=== PATIENT | female | born 1955 | race Caucasian/White ===

== ENCOUNTER 2016-05-16 06:12 | Day surgery (SDC) | payer MEDICARE ==
[2016-05-11 13:59] VITALS: BMI 22.4
[~2016-05-16 06:12] MED LIST: LACTATED RINGERS 1,000 ML IV SCH
[2016-05-16 06:34] VITALS: TEMP 97.6
--- NOTE | 2016-05-16 07:12 | XR ---
EXAMINATION TYPE: XR KUB DATE OF EXAM: 05/16/2016 7:03 AM CLINICAL DATA: 60-year-old female presents with kidney stones, prelithotripsy, H COMPARISON: 02/10/2016 FINDINGS: There is mild stool burden. Nonobstructive bowel gas pattern. A couple calcific densities project in the left mid abdomen measuring up to 1.3 and 0.8 cm. Multiple pelvic phlebolith. IMPRESSION: Left-sided nephrolithiasis measuring up to 1.3 cm. An adjacent 8 mm calculus may be new from 02/10/20 16.
[2016-05-16] MEDS ORDERED: PROPOFOL 10 MG/ML 20 ML VIAL IV ONE (07:40)
[2016-05-16] MEDS ORDERED: MIDAZOLAM 2 MG/2 ML VIAL ONE (07:40)
[2016-05-16] MEDS ORDERED: fentaNYL (PF) 50 MCG/ML 2 ML AMP ONE (07:40)
[2016-05-16 08:49] VITALS: BP 122/79; PULSE 74; RESP 18
--- NOTE | 2016-05-16 17:32 | OP ---
DATE OF SERVICE: 05/16/2016 SURGEON: LEONCIO BOLTON MD PREOPERATIVE DIAGNOSIS: Left renal calculi. POSTOPERATIVE DIAGNOSIS: Left renal calculi. OPERATION: Extracorporeal shockwave lithotripsy of left renal calculi. ANESTHESIA: Intravenous sedation. HISTORY: The patient is a 60-year-old female with a history of urolithiasis who was recently evaluated by Dr. Kaba and noted to have 2 calculi in the lower to mid pole of the left kidney. The largest calculus is triangular and measures 7 x 11 mm in size. The smaller calculus is 5 x 7 mm. Treatment options were reviewed with Dr. Kaba and the patient has chosen to proceed with ESWL. PROCEDURE: The patient was taken to the operating suite where adequate intravenous sedation was given. Patient was placed in the supine position on the fluoroscopy table. The calculi in the left kidney were localized using biplanar fluoroscopy. Lithotripsy was performed using the Dornier compact delta unit. Patient received 2500 shocks at level 5. A 2 minute pause occurred after 200 shocks. There appeared to be good fragmentation of the calculi. The patient tolerated the procedure well and left the operating room awake and in satisfactory condition. The patient will be seen back by Dr. Kaba in one week at which time a KUB will be obtained. PEDRO
== END 2016-05-16 09:37 | disposition home or self-care (01) ==
LOC: ORWHC2ENDO 06:12
PROVIDERS: ATTEND Urology
DX: N20.0 Calculus of kidney (principal); K21.9 Gastro-esophageal reflux disease without esophagitis; J45.909 Unspecified asthma, uncomplicated; J43.9 Emphysema, unspecified; Z72.0 Tobacco use; Z79.51 Long term (current) use of inhaled steroids; Z79.899 Other long term (current) drug therapy; Z88.0 Allergy status to penicillin; Z91.041 Radiographic dye allergy status; Z88.5 Allergy status to narcotic agent
CPT/HCPCS: 74000; 50590; J2250; J3010; J2704; 99153

== ENCOUNTER → 2016-06-16 | Outpatient (CLI) | payer MEDICARE ==
--- NOTE | 2016-06-16 14:48 | XR ---
EXAMINATION TYPE: XR abdomen 1V DATE OF EXAM: 06/16/2016 2:15 PM CLINICAL HISTORY: Lithotripsy May 16 with renal calculi progress study TECHNIQUE: Single supine KUB image of the abdomen is obtained. COMPARISON: Abdominal x-ray May 16, 2016 FINDINGS: Previously visualized irregular larger left-sided renal calculi are not clearly evident. Sc attered pelvic phleboliths are redemonstrated. No right-sided renal calculi are seen. Curvilinear den sity over left sacrum near the SI joint is stable and presumed vascular. Lung bases are clear. There is overall nonobstructive bowel gas pattern. Osseous structures are intac t. IMPRESSION: Findings are consistent with successful lithotripsy of larger irregular left-sided renal calculi.
== END ==
LOC: RADXRMAIN 13:59
PROVIDERS: ATTEND Urology
DX: N20.0 Calculus of kidney (principal)
CPT/HCPCS: 74000

== ENCOUNTER 2016-07-12 11:36 | Inpatient (IN) | payer MEDICARE ==
--- NOTE | 2016-07-12 14:32 | XR ---
EXAMINATION TYPE: XR chest 2V DATE OF EXAM: 07/12/2016 2:14 PM COMPARISON: NONE INDICATION: Cough TECHNIQUE: Single frontal view of the chest is obtained. FINDINGS: The heart size is normal. The pulmonary vasculature is normal. The lungs are clear. IMPRESSION: 1. No acute pulmonary process.
[2016-07-12] MEDS: methylPREDNISolone SOD SUCCI 125 MG/2 ML VIAL IV SCH ×2 (15:11→19:52)
[2016-07-12] MEDS: SODIUM CHLORIDE 0.9% 1,000 ML IV SCH (15:12)
[2016-07-12] MEDS: HEPARIN SODIUM,PORCINE 5,000 UNIT/ML 1 ML VIAL SQ SCH ×2 (15:12→20:06)
[2016-07-12] MEDS ORDERED: ALBUTEROL NEBULIZED 2.5 MG/3 ML INHALATION PRN (15:17)
[2016-07-12] MEDS ORDERED: FLUTICASONE 50MCG/SPRAY NASAL 16GM EA NOSTRIL PRN (15:17)
[2016-07-12] MEDS ORDERED: ALBUTEROL INHALER 60 PUFF/8 GM INHALER INHALATION PRN (15:17)
[2016-07-12] MEDS: HYDROcodone/APAP 5-325MG 1 EACH TAB PO PRN ×2 (15:42→22:02)
[2016-07-12 16:03] LABS: Basophils % (A) 0 %; CH 29.3; CHCM 32.4; Eosinophils % (A) 0 %; HCT 36.8 % (34.0-46.0); HDW 2.36; HGB 11.9 gm/dL (11.4-16.0); Luc # (Auto) 0.14; Luc % (Auto) 1; Lymphocytes # (A) 1.5 k/uL (1.0-4.8); Lymphocytes % (A) 12 %; MCH 29.3 pg (25.0-35.0); MCHC 32.2 g/dL (31.0-37.0); MCV 90.8 fL (80.0-100.0); Mean Platelet Volume 7.1; Monocytes # (A) 0.6 k/uL (0-1.0); Monocytes % (A) 6 %; Neutrophils # (A) 9.4 k/uL (1.3-7.7); Neutrophils % (A) 80 %; RBC 4.05 m/uL (3.80-5.40); RDW 13.9 % (11.5-15.5); WBC 11.7 k/uL (3.8-10.6); WBC (Perox) 12.19
[2016-07-12 16:11] LABS: ALT 29 U/L (9-52); AST 23 U/L (14-36); Alkaline Phosphatase 83 U/L (38-126); Anion Gap 9 mmol/L; Blood Urea Nitrogen 8 mg/dL (7-17); Calcium 9.2 mg/dL (8.4-10.2); Carbon Dioxide 32 mmol/L (22-30); Chloride 99 mmol/L (98-107); Glucose 97 mg/dL (74-99); Non-African American GFR(MDRD) >60 (>60 ml/min/1.73 sqM); Potassium 4.5 mmol/L (3.5-5.1); Sodium 140 mmol/L (137-145); Total Bilirubin 1.1 mg/dL (0.2-1.3); Total Protein 6.4 g/dL (6.3-8.2)
[2016-07-12] MEDS ORDERED: IPRATROPIUM-ALBUTEROL 3 ML NEB INHALATION PRN (18:42)
[2016-07-12] MEDS: SYMBICORT 160-4.5 MCG INHALER INHALATION SCH ×2 (19:07→20:17)
[2016-07-12] MEDS: IPRATROPIUM-ALBUTEROL 3 ML NEB INHALATION SCH ×2 (19:08→20:43)
[2016-07-12] MEDS ORDERED: SYMBICORT 80-4.5 MCG INHALER INHALATION SCH (20:00)
[2016-07-12] MEDS: FAMOTIDINE 20 MG TAB PO SCH (20:07)
[2016-07-12] MEDS: clonazePAM 1 MG TAB PO SCH (20:07)
[2016-07-12] MEDS: guaiFENesin 600 MG TABLET.ER PO SCH (20:07)
[2016-07-12] MEDS: ESCITALOPRAM 20 MG TAB PO SCH (20:07)
[2016-07-12] MEDS ORDERED: NON-FORMULARY DRUG (Ranitidine Hcl [Zantac] 150 MG) PO SCH (21:00)
[2016-07-13] MEDS: methylPREDNISolone SOD SUCCI 125 MG/2 ML VIAL IV SCH ×4 (00:10→18:00)
[2016-07-13] MEDS: IPRATROPIUM-ALBUTEROL 3 ML NEB INHALATION SCH (00:15)
[2016-07-13] MEDS: SODIUM CHLORIDE 0.9% 1,000 ML IV SCH ×2 (05:37→16:02)
[2016-07-13] MEDS: SYMBICORT 160-4.5 MCG INHALER INHALATION SCH ×3 (07:30→20:29)
[2016-07-13] MEDS: ALBUTEROL NEBULIZED 2.5 MG/3 ML INHALATION SCH ×6 (07:30→20:29)
[2016-07-13] MEDS: clonazePAM 1 MG TAB PO SCH ×2 (08:06→21:09)
[2016-07-13] MEDS: guaiFENesin 600 MG TABLET.ER PO SCH ×2 (08:11→21:09)
[2016-07-13] MEDS: ATENOLOL 25 MG TAB PO SCH (08:12)
[2016-07-13] MEDS: HYDROcodone/APAP 5-325MG 1 EACH TAB PO PRN (08:12)
[2016-07-13 08:31] LABS: Basophils % (A) 0 %; CH 28.9; CHCM 31.7; Eosinophils % (A) 0 %; HCT 37.2 % (34.0-46.0); HDW 2.33; Luc # (Auto) 0.04; Luc % (Auto) 0; Lymphocytes % (A) 6 %; MCH 29.5 pg (25.0-35.0); MCHC 32.2 g/dL (31.0-37.0); MCV 91.5 fL (80.0-100.0); Mean Platelet Volume 7.4; Monocytes # (A) 0.4 k/uL (0-1.0); Monocytes % (A) 3 %; Neutrophils # (A) 15.1 k/uL (1.3-7.7); Neutrophils % (A) 91 %; RBC 4.06 m/uL (3.80-5.40); RDW 13.6 % (11.5-15.5); WBC 16.6 k/uL (3.8-10.6); WBC (Perox) 17.31
[2016-07-13 08:38] LABS: ALT 20 U/L (9-52); AST 23 U/L (14-36); Alkaline Phosphatase 71 U/L (38-126); Anion Gap 11 mmol/L; Blood Urea Nitrogen 12 mg/dL (7-17); Calcium 9.4 mg/dL (8.4-10.2); Carbon Dioxide 26 mmol/L (22-30); Chloride 105 mmol/L (98-107); Glucose 145 mg/dL (74-99); Non-African American GFR(MDRD) >60 (>60 ml/min/1.73 sqM); Potassium 4.3 mmol/L (3.5-5.1); Sodium 142 mmol/L (137-145); Total Bilirubin 0.9 mg/dL (0.2-1.3); Total Protein 6.6 g/dL (6.3-8.2)
[2016-07-13] MEDS: HEPARIN SODIUM,PORCINE 5,000 UNIT/ML 1 ML VIAL SQ SCH ×2 (09:00→21:09)
--- NOTE | 2016-07-13 09:19 | P.CNPUL ---
History of Present Illness Consult date: 07/12/16 Requesting physician: Chirs Aguilar Reason for consult: COPD Chief complaint: Shortness of breath History of present illness: This patient was sent over from Dr. Aguilar's office for acute exacerbation of COPD. This patient has an extensive pulmonary history including bullous emphysema, COPD, and chronic persistent asthma. He also uses home oxygen at 2-1 /2 L nasal cannula around the clock. The patient also has had a thoracotomy to remove benign mass near his right long in the past. She has a nicotine dependent and is still currently smoking. The patient denies any recent fever, chills, sweats, nausea, vomiting, diarrhea or constipation. Upon examination the patient is resting up in bed on 3 L of home oxygen she is short of breath with exertion or extensive conversation. She continues to have her chronic cough which is congested however she is unable to bring up sputum at this time due to how thick it is. Review of Systems 14 point review of systems was completed and is negative other than what is noted in the HPI. Past Medical History Past Medical History: Asthma, COPD, GERD/Reflux, Hypertension, Osteoarthritis ( OA), Renal Disease, Respiratory Disorder Additional Past Medical History / Comment(s): BULLOUS EMPHYSEMA, end stage COPD uses O2 at 2.5L/NC ATC, arthritis-multiple joints, nephrolithiasis-has passed stones on her own and also removed surgically. History of Any Multi-Drug Resistant Organisms: None Reported Past Surgical History: Adenoidectomy, Tonsillectomy, Tubal Ligation Additional Past Surgical History / Comment(s): THORACOTMY TO REMOVE BENIGN MASS NEAR RT LUNG, ESWLs, EGD/colonoscopy, laparoscopic surgery for bladder polyps and female problems. Past Anesthesia/Blood Transfusion Reactions: No Reported Reaction Additional Past Anesthesia/Blood Transfusion Reaction / Comment(s): The patients son carries the gene for malignant hyperthermia but has not had a reaction to anethesia. Pt has not had herself tested. Past Psychological History: Anxiety, Depression, Panic Disorder Additional Psychological History / Comment(s): Pt resides with her friend. She has home oxygen and a nebulizer. She uses a walker or cane to ambulate. She no longer drives, her friend takes her to [facility]. Smoking Status: Current every day smoker Past Alcohol Use History: None Reported Additional Past Alcohol Use History / Comment(s): Pt started smoking in 1974. She is down to 6 cigarettes a day. Past Drug Use History: Marijuana Additional Drug Use History / Comment(s): Pt used marijuana about a year ago, once. - Past Family History Son(s) Additional Family Medical History / Comment(s): carries the gene for malignant hyperthermia. He had had anethesia without and reaction Father Family Medical History: Coronary Artery Disease (CAD), Myocardial Infarction (IN ), Renal Disease Additional Family Medical History / Comment(s): Father of a IN at the age of 59yrs. Mother Family Medical History: Cancer Additional Family Medical History / Comment(s): Mother of leukemia at the age of 57yrs. Brother(s) Family Medical History: Cancer Additional Family Medical History / Comment(s): Brother of bladder cancer at the age of 50yrs. Medications and Allergies Home Medications Medication Instructions Recorded Confirmed Type Albuterol Sulfate [Proair Hfa] 1 applic INHALATION RT-Q6H PRN 09/13/13 07/12/16 History Escitalopram [Lexapro] 20 mg PO HS 09/13/13 07/12/16 History Fluticasone Propionate [Flonase] 1 spray EA NOSTRIL DAILY PRN 09/13/13 07/12/16 History Fluticasone/Salmeterol [Advair 1 applic INHALATION RT-BID 09/13/13 07/12/16 History 250-50 Diskus] clonazePAM [KlonoPIN] 1 mg PO BID 09/13/13 07/12/16 History Ranitidine HCl [Zantac] 150 mg PO HS 04/21/15 07/12/16 History Cetirizine HCl [Zyrtec] 10 mg PO DAILY 05/11/16 07/12/16 History Albuterol Nebulized [Ventolin 2.5 mg INHALATION RT-Q6H PRN 07/12/16 07/12/16 History Nebulized] Atenolol [Tenormin] 25 mg PO DAILY 07/12/16 07/12/16 History Allergies Allergy/AdvReac Type Severity Reaction Status Date / Time codeine Allergy Anaphylaxis Verified 05/16/16 06:34 Iodinated Contrast Media - Allergy Anaphylaxis Verified 05/16/16 06:34 Oral and [Iodinated Contrast Media - IV Dye] morphine Allergy Hallucinati Verified 05/16/16 06:34 ons Penicillins Allergy Anaphylaxis Verified 05/16/16 06:34 MOLD Allergy Anaphylaxis Uncoded 05/16/16 06:34 Physical Exam Vitals: Vital Signs Temp Pulse Pulse Resp BP Pulse Ox 07/13/16 08:00 18 07/13/16 07:45 80 07/13/16 07:30 84 07/13/16 07:00 98.2 F 98 18 140/80 93 L 07/13/16 00:00 86 16 07/12/16 23:00 98 F 86 16 105/53 94 L 07/12/16 20:29 80 07/12/16 20:19 72 07/12/16 16:00 18 07/12/16 14:22 92 L 07/12/16 14:15 98.1 F 93 18 95/57 87 L 07/12/16 12:14 92 L 07/12/16 12:10 98.1 F 93 20 95/57 87 L Intake and Output 07/12/16 07/13/16 07/13/16 22:59 06:59 14:59 Intake Total 300 240 Balance 300 240 Intake: Intake, IV Titration 300 Amount Sodium Chloride 0.9% 1, 300 000 ml @ 75 mls/hr IV . [id number] [facility] Rx#:[id number] Oral 240 Other: Voiding Method Bedside Commode # Voids 1 # Bowel Movements 1 Weight 53.1 kg GENERAL EXAM: Alert, active, comfortable in no apparent distress. HEAD: Normocephalic. EYES: Normal reaction of pupils, equal size. NOSE: Clear with pink turbinates. THROAT: No erythema or exudates. NECK: No masses, no JVD. CHEST: No chest wall deformity. LUNGS: Bilaterally poor air entry, lung sounds noted to be coarse, scattered rhonchi and wheezing also noted. CVS: S1 and S2 normal with no audible mumurs, regular rhythm. ABDOMEN: No hepatosplenomegaly, normal bowel sounds, no guarding or rigidity. EXTREMITIES: No edema noted, pedal pulses palpable. SKIN: No rashes CENTRAL NERVOUS SYSTEM: No focal deficits, tone is normal in all 4 extremities. Results - Laboratory Findings CBC and BMP: 07/13/16 07:47 07/13/16 07:47 Abnormal lab findings: Abnormal Labs 07/12/16 07/12/16 07/13/16 15:11 15:11 07:47 WBC 11.7 H 16.6 H Neutrophils # 9.4 H 15.1 H Carbon Dioxide 32 H Creatinine 0.50 L Glucose 07/13/16 07:47 WBC Neutrophils # Carbon Dioxide Creatinine 0.49 L Glucose 145 H - Diagnostic Findings Chest x-ray: report reviewed Assessment and Plan Plan: Assessment Acute exacerbation of chronic obstructive pulmonary disease Tracheobronchitis Bullous emphysema Acute exacerbation of Chronic persistent asthma Acute on chronic hypoxic respiratory failure Plan Medications have been reviewed and will be continued. We will add albuterol updrafts. Continue with IV steroids and her Symbicort inhaler. We will also add Mucinex to help with secretions. We will also obtain a flu swab and a sputum culture. Incentive spirometer initiated and encouraged. Continue with supplemental oxygen, pulmonary hygiene and supportive care. We will continue to monitor labs/results and adjust treatment as necessary. I performed an examination of the patient and discussed their management with the nurse practitioner. I have reviewed the nurse practitioner's note and agree with the documented findings and plan of care.
[2016-07-13] MEDS: LORATADINE 10 MG TAB PO SCH (11:54)
[2016-07-13] MEDS: LEVOFLOXACIN 500MG-D5W PMX 500 MG in DEXTROSE/WATER 1 100ML.BAG IVPB SCH (11:56)
--- NOTE | 2016-07-13 13:27 | P.PN ---
Subjective 61-year-old female being seen with the attending on rounds. Patient sitting up. Patient states she continues to feel short of breath is audibly congested. Patient's initial presentation from Dr. Aguilar's office for shortness of breath likely due to an acute exacerbation of COPD. Patient has an extensive pulmonary history including bullous emphysema with chronic persistent asthma. Patient uses home O2 to have liters [id number] at home. Patient has a history of having a thoracotomy done to remove a benign mass near the right lung base in the past. Patient is a current smoker has a history of nicotine dependency greater than 30 year history. Patient states at home she was not able to cough up any secretions influenza A and B- chest x-ray on admission no acute pulmonary process Objective - Vital Signs Vital signs: Vital Signs Temp 98.2 F 07/13/16 07:00 Pulse 88 07/13/16 11:36 Resp 18 07/13/16 08:00 BP 140/80 07/13/16 07:00 Pulse Ox 93 L 07/13/16 07:00 Intake & Output 07/12/16 07/13/16 07/13/16 18:59 06:59 18:59 Intake Total 540 Balance 540 Weight 53.1 kg Intake: Intake, IV Titration 300 Amount Sodium Chloride 0.9% 1, 300 000 ml @ 75 mls/hr IV . [id number] [facility] Rx#:[id number] Oral 240 Other: Voiding Method Bedside Commode # Voids 1 1 # Bowel Movements 1 - Exam Physical exam 61-year-old female sitting up in bed continues to feel short of breath audibly congested Lungs diminished at the bases with bilateral prolonged expiratory wheezing noted Heart S1-S2 audible and regular Abdomen soft nontender reports no nausea vomiting Extremities no edema noted - Labs CBC & Chem 7: 07/13/16 07:47 07/13/16 07:47 Labs: Abnormal Lab Results - Last 24 Hours (Table) 07/12/16 07/12/16 07/13/16 Range/Units 15:11 15:11 07:47 WBC 11.7 H 16.6 H (3.8-10.6) k/uL Neutrophils # 9.4 H 15.1 H (1.3-7.7) k/uL Carbon Dioxide 32 H (22-30) mmol/L Creatinine 0.50 L (0.52-1.04) mg/dL Glucose (74-99) mg/dL 07/13/16 Range/Units 07:47 WBC (3.8-10.6) k/uL Neutrophils # (1.3-7.7) k/uL Carbon Dioxide (22-30) mmol/L Creatinine 0.49 L (0.52-1.04) mg/dL Glucose 145 H (74-99) mg/dL Assessment and Plan Plan: Impression Present on admission shortness of breath exertional dyspnea suspect due to an acute exacerbation of COPD Chronic current nicotine dependency current smoker greater than a 40 year history Extensive pulmonary history Bullous emphysema Chronic persistent asthma Chronic hypoxic respiratory failure supplemental oxygen 2-1/2 L around-the- clock at home History of a thoracotomy to remove a benign mass near the right lung base Acute on chronic hypoxic respiratory failure Acute exacerbation of chronic persistent asthma Tracheal bronchitis Plan Continue recommendations by pulmonology service Follow up on the sputum culture pending DVT and GI prophylaxis Aerosol bronchodilators as ordered Resume home meds as appropriate Further recommendations pending will follow The above dictated assessment and findings were discussed with Dr. Aguilar Impression and the plan of care have been dictated as directed. Lynne Murcia nurse practitioner acting as a scribe for Dr. Aguilar
--- NOTE | 2016-07-13 14:39 | P.PN ---
Subjective This patient was sent over from Dr. Aguilar's office for acute exacerbation of COPD. This patient has an extensive pulmonary history including bullous emphysema, COPD, and chronic persistent asthma. He also uses home oxygen at 2-1 /2 L nasal cannula around the clock. The patient also has had a thoracotomy to remove benign mass near her right long in the past. She has a nicotine dependent and is still currently smoking, greater than 30 year history.. The patient denies any recent fever, chills, sweats, nausea, vomiting, diarrhea or constipation. influenza A and B were negative chest x-ray shows no acute pulmonary process. Upon examination the patient is resting up in bed on 3 L of oxygen she is short of breath with exertion or extensive conversation. She continues to have her chronic cough which is congested however she is unable to bring up sputum at this time due to how thick it is. Objective - Vital Signs Vital signs: Vital Signs Temp 98.2 F 07/13/16 07:00 Pulse 88 07/13/16 11:36 Resp 18 07/13/16 08:00 BP 140/80 07/13/16 07:00 Pulse Ox 93 L 07/13/16 07:00 Intake & Output 07/12/16 07/13/16 07/13/16 18:59 06:59 18:59 Intake Total 540 Balance 540 Weight 53.1 kg Intake: Intake, IV Titration 300 Amount Sodium Chloride 0.9% 1, 300 000 ml @ 75 mls/hr IV . [id number] [facility] Rx#:[id number] Oral 240 Other: Voiding Method Bedside Commode # Voids 1 1 # Bowel Movements 1 - Exam GENERAL EXAM: Alert, active, comfortable in no apparent distress. HEAD: Normocephalic. EYES: Normal reaction of pupils, equal size. NOSE: Clear with pink turbinates. THROAT: No erythema or exudates. NECK: No masses, no JVD. CHEST: No chest wall deformity. LUNGS: Equal air entry, prolonged expiratory wheeze, diminished bases. CVS: S1 and S2 normal with no audible mumurs, regular rhythm. ABDOMEN: No hepatosplenomegaly, normal bowel sounds, no guarding or rigidity. EXTREMITIES: No edema noted, pedal pulses palpable. SKIN: No rashes CENTRAL NERVOUS SYSTEM: No focal deficits, tone is normal in all 4 extremities. - Labs CBC & Chem 7: 07/13/16 07:47 07/13/16 07:47 Labs: Abnormal Lab Results - Last 24 Hours (Table) 07/12/16 07/12/16 07/13/16 Range/Units 15:11 15:11 07:47 WBC 11.7 H 16.6 H (3.8-10.6) k/uL Neutrophils # 9.4 H 15.1 H (1.3-7.7) k/uL Carbon Dioxide 32 H (22-30) mmol/L Creatinine 0.50 L (0.52-1.04) mg/dL Glucose (74-99) mg/dL 07/13/16 Range/Units 07:47 WBC (3.8-10.6) k/uL Neutrophils # (1.3-7.7) k/uL Carbon Dioxide (22-30) mmol/L Creatinine 0.49 L (0.52-1.04) mg/dL Glucose 145 H (74-99) mg/dL Assessment and Plan Plan: Assessment Acute exacerbation of chronic obstructive pulmonary disease Tracheobronchitis Bullous emphysema Acute exacerbation of Chronic persistent asthma Acute on chronic hypoxic respiratory failure Plan Medications have been reviewed and will be continued. Continue with nebulizer treatments and IV steroids, also Mucinex to help with secretions. Sputum cultures pending. Incentive spirometer initiated and encouraged. Continue with supplemental oxygen, pulmonary hygiene and supportive care. We will continue to monitor labs/results and adjust treatment as necessary. I performed an examination of the patient and discussed their management with the nurse practitioner. I have reviewed the nurse practitioner's note and agree with the documented findings and plan of care.
[2016-07-13] MEDS ORDERED: HYDROcodone/APAP 5-325MG 1 EACH TAB PO PRN (14:40)
[2016-07-13 15:31] VITALS: BMI 21.4
[2016-07-13] MEDS: HYDROcodone/APAP 7.5-325MG 1 EACH TAB PO PRN (15:57)
[2016-07-13] MEDS: KETOROLAC 30 MG/ML 1 ML VIAL IVP SCH ×2 (16:01→19:24)
[2016-07-13] MEDS: ESCITALOPRAM 20 MG TAB PO SCH (21:09)
[2016-07-13] MEDS: FAMOTIDINE 20 MG TAB PO SCH (21:09)
[2016-07-14] MEDS: methylPREDNISolone SOD SUCCI 125 MG/2 ML VIAL IV SCH ×3 (00:01→12:21)
[2016-07-14] MEDS: HYDROcodone/APAP 7.5-325MG 1 EACH TAB PO PRN ×3 (00:58→19:46)
[2016-07-14] MEDS: KETOROLAC 30 MG/ML 1 ML VIAL IVP SCH ×3 (01:25→12:27)
[2016-07-14] MEDS: SODIUM CHLORIDE 0.9% 1,000 ML IV SCH (06:14)
[2016-07-14] MEDS: SYMBICORT 160-4.5 MCG INHALER INHALATION SCH ×2 (07:38→20:41)
[2016-07-14] MEDS: ALBUTEROL NEBULIZED 2.5 MG/3 ML INHALATION SCH ×4 (07:38→20:45)
[2016-07-14] MEDS: LEVOFLOXACIN 500MG-D5W PMX 500 MG in DEXTROSE/WATER 1 100ML.BAG IVPB SCH (09:50)
[2016-07-14] MEDS: HEPARIN SODIUM,PORCINE 5,000 UNIT/ML 1 ML VIAL SQ SCH ×2 (09:50→19:51)
[2016-07-14] MEDS: clonazePAM 1 MG TAB PO SCH ×2 (09:51→23:04)
[2016-07-14] MEDS: LORATADINE 10 MG TAB PO SCH (09:51)
[2016-07-14] MEDS: ATENOLOL 25 MG TAB PO SCH (09:51)
[2016-07-14] MEDS: guaiFENesin 600 MG TABLET.ER PO SCH ×2 (09:51→19:48)
--- NOTE | 2016-07-14 14:15 | P.PN ---
Subjective 61-year-old female being seen on rounds. Sitting up on the edge of the bed patient states breathing feels notably improved. Patients being followed by pulmonology service. Recommendations noted appreciated and reviewed Patient states less pleuritic chest pain coughing less anxious to be discharged Objective - Vital Signs Vital signs: Vital Signs Temp 97.9 F 07/14/16 07:00 Pulse 88 07/14/16 07:00 Resp 20 07/14/16 07:00 BP 160/74 07/14/16 07:00 Pulse Ox 95 07/14/16 07:00 Intake & Output 07/13/16 07/14/16 07/14/16 18:59 06:59 18:59 Intake Total 300 540 Balance 300 540 Weight 53.1 kg Intake: Oral 300 540 Other: Voiding Method Bedside Commode Bedside Commode Bedside Commode # Voids 4 2 - Exam Physical exam 61-year-old female sitting up in bed feels less short of breath Lungs diminished at the bases with bilateral prolonged expiratory wheezing noted no cough noted sats on 2 L 95% Heart S1-S2 audible and regular denying chest pain Abdomen soft nontender reports no nausea vomiting Extremities no edema noted - Labs CBC & Chem 7: 07/13/16 07:47 07/13/16 07:47 Assessment and Plan Plan: Impression Present on admission shortness of breath exertional dyspnea suspect due to an acute exacerbation of COPD Chronic current nicotine dependency current smoker greater than a 40 year history Extensive pulmonary history Bullous emphysema Chronic persistent asthma Chronic hypoxic respiratory failure supplemental oxygen 2-1/2 L around-the- clock at home History of a thoracotomy to remove a benign mass near the right lung base Acute on chronic hypoxic respiratory failure Acute exacerbation of chronic persistent asthma Tracheal bronchitis Plan Continue recommendations by pulmonology service Follow up on the sputum culture pending DVT and GI prophylaxis Aerosol bronchodilators as ordered Resume home meds as appropriate audible discharge in the next 24 hours The above dictated assessment and findings were discussed with Dr. Aguilar Impression and the plan of care have been dictated as directed. Lynne Murcia nurse practitioner acting as a scribe for Dr. Aguilar
--- NOTE | 2016-07-14 17:46 | P.PN ---
Subjective This patient was sent over from Dr. Aguilar's office for acute exacerbation of COPD. This patient has an extensive pulmonary history including bullous emphysema, COPD, and chronic persistent asthma. He also uses home oxygen at 2-1 /2 L nasal cannula around the clock. The patient also has had a thoracotomy to remove benign mass near her right long in the past. She has a nicotine dependent and is still currently smoking, greater than 30 year history.. The patient denies any recent fever, chills, sweats, nausea, vomiting, diarrhea or constipation. influenza A and B were negative chest x-ray shows no acute pulmonary process. Upon examination the patient is resting up in bed on 2.5 L of oxygen she is short of breath with exertion or extensive conversation. She continues to have her chronic cough which is congested, however this as improved. Patient could go home in the near future. Objective - Vital Signs Vital signs: Vital Signs Temp 98.2 F 07/14/16 15:00 Pulse 72 07/14/16 15:00 Resp 20 07/14/16 15:00 BP 139/71 07/14/16 15:00 Pulse Ox 96 07/14/16 15:00 Intake & Output 07/13/16 07/14/16 07/14/16 18:59 06:59 18:59 Intake Total 300 540 600 Balance 300 540 600 Weight 53.1 kg Intake: Oral 300 540 600 Other: Voiding Method Bedside Commode Bedside Commode Bedside Commode # Voids 4 2 3 - Exam GENERAL EXAM: Alert, active, comfortable in no apparent distress. HEAD: Normocephalic. EYES: Normal reaction of pupils, equal size. NOSE: Clear with pink turbinates. THROAT: No erythema or exudates. NECK: No masses, no JVD. CHEST: No chest wall deformity. LUNGS: Equal air entry, prolonged expiratory wheeze, diminished bases. CVS: S1 and S2 normal with no audible mumurs, regular rhythm. ABDOMEN: No hepatosplenomegaly, normal bowel sounds, no guarding or rigidity. EXTREMITIES: No edema noted, pedal pulses palpable. SKIN: No rashes CENTRAL NERVOUS SYSTEM: No focal deficits, tone is normal in all 4 extremities. - Labs CBC & Chem 7: 07/13/16 07:47 07/13/16 07:47 Assessment and Plan Plan: Assessment Acute exacerbation of chronic obstructive pulmonary disease Tracheobronchitis Bullous emphysema Acute exacerbation of Chronic persistent asthma Acute on chronic hypoxic respiratory failure Plan Patient could be cleared for discharge from a pulmonary stand point tomorrow. Medications have been reviewed and will be continued. Continue with nebulizer treatments and IV steroids, also Mucinex to help with secretions. Influenza negative. Sputum cultures pending. Incentive spirometer initiated and encouraged. We may switch Levaquin to oral tomorrow. Agree with decreasing steroids. Continue with supplemental oxygen, pulmonary hygiene and supportive care. We will continue to monitor labs/results and adjust treatment as necessary. I performed an examination of the patient and discussed their management with the nurse practitioner. I have reviewed the nurse practitioner's note and agree with the documented findings and plan of care.
[2016-07-14] MEDS: methylPREDNISolone SOD SUCCI 40 MG/ML 1 ML VIAL IV SCH ×2 (18:29→23:08)
[2016-07-14] MEDS: FAMOTIDINE 20 MG TAB PO SCH (23:04)
[2016-07-14] MEDS: ESCITALOPRAM 20 MG TAB PO SCH (23:04)
[2016-07-15] MEDS: SODIUM CHLORIDE 0.9% 1,000 ML IV SCH ×2 (04:28→17:25)
[2016-07-15] MEDS: methylPREDNISolone SOD SUCCI 40 MG/ML 1 ML VIAL IV SCH ×3 (06:23→23:22)
[2016-07-15] MEDS: HYDROcodone/APAP 7.5-325MG 1 EACH TAB PO PRN ×3 (06:26→22:01)
[2016-07-15] MEDS: ATENOLOL 25 MG TAB PO SCH (08:38)
[2016-07-15] MEDS: LEVOFLOXACIN 500 MG TAB PO SCH (08:38)
[2016-07-15] MEDS: guaiFENesin 600 MG TABLET.ER PO SCH ×2 (08:38→21:57)
[2016-07-15] MEDS: LORATADINE 10 MG TAB PO SCH (08:39)
[2016-07-15] MEDS: clonazePAM 1 MG TAB PO SCH ×2 (08:40→21:59)
[2016-07-15] MEDS: SYMBICORT 160-4.5 MCG INHALER INHALATION SCH ×2 (08:41→20:41)
[2016-07-15] MEDS: ALBUTEROL NEBULIZED 2.5 MG/3 ML INHALATION SCH ×4 (08:42→20:41)
[2016-07-15] MEDS: HEPARIN SODIUM,PORCINE 5,000 UNIT/ML 1 ML VIAL SQ SCH ×2 (09:00→21:57)
--- NOTE | 2016-07-15 09:30 | P.PN ---
Subjective 61-year-old female sitting up in bed. Patient states breathing feels "no better than when I came in". Patient has a extensive pulmonary history has emphysema seizure fierce COPD with chronic persistent asthma. Patient uses to help liters [id number] at home.no cough noted.sats are 95% on room air. No cough noted. Objective - Vital Signs Vital signs: Vital Signs Temp 97.9 F 07/15/16 07:00 Pulse 76 07/15/16 07:00 Resp 18 07/15/16 08:00 BP 124/79 07/15/16 07:00 Pulse Ox 97 07/15/16 07:00 Intake & Output 07/14/16 07/15/16 07/15/16 18:59 06:59 18:59 Intake Total 600 500 Balance 600 500 Intake: Intake, IV Titration 500 Amount Sodium Chloride 0.9% 1, 500 000 ml @ 50 mls/hr IV . Q20H [facility] Rx#:[id number] Oral 600 Other: Voiding Method Bedside Commode Bedside Commode # Voids 3 2 - Exam Physical exam 61-year-old female sitting up in bed feels short of breath Lungs diminished at the bases with bilateral prolonged expiratory wheezing noted no cough noted sats on 2 L 95% Heart S1-S2 audible and regular denying chest pain Abdomen soft nontender reports no nausea vomiting Extremities no edema noted - Labs CBC & Chem 7: 07/13/16 07:47 07/13/16 07:47 Labs: Microbiology - Last 24 Hours (Table) 07/13/16 21:10 Gram Stain - Preliminary Sputum Assessment and Plan Plan: Impression Present on admission shortness of breath exertional dyspnea suspect due to an acute exacerbation of COPD Chronic current nicotine dependency current smoker greater than a 40 year history Extensive pulmonary history Bullous emphysema Chronic persistent asthma Chronic hypoxic respiratory failure supplemental oxygen 2-1/2 L around-the- clock at home History of a thoracotomy to remove a benign mass near the right lung base Acute on chronic hypoxic respiratory failure Acute exacerbation of chronic persistent asthma Tracheal bronchitis Plan Continue recommendations by pulmonology service Follow up on the sputum culture pending DVT and GI prophylaxis Aerosol bronchodilators as ordered Resume home meds as appropriate possible discharge in the next 24 Steroids per pulmonary service The above dictated assessment and findings were discussed with Dr. Aguilar Impression and the plan of care have been dictated as directed. Lynne Murcia nurse practitioner acting as a scribe for Dr. Aguilar
--- NOTE | 2016-07-15 13:02 | P.PN ---
Subjective This patient was sent over from Dr. Aguilar's office for acute exacerbation of COPD. This patient has an extensive pulmonary history including bullous emphysema, COPD, and chronic persistent asthma. He also uses home oxygen at 2-1 /2 L nasal cannula around the clock. The patient also has had a thoracotomy to remove benign mass near her right long in the past. She has a nicotine dependent and is still currently smoking, greater than 30 year history.. The patient denies any recent fever, chills, sweats, nausea, vomiting, diarrhea or constipation. influenza A and B were negative chest x-ray shows no acute pulmonary process. Upon examination the patient is resting up in bed on 2.5 L of oxygen she is short of breath with exertion or extensive conversation. She continues to have her chronic cough which is congested, however this as improved. Patient could go home in the near future. Objective - Vital Signs Vital signs: Vital Signs Temp 97.9 F 07/15/16 07:00 Pulse 76 07/15/16 07:00 Resp 18 07/15/16 08:00 BP 124/79 07/15/16 07:00 Pulse Ox 97 07/15/16 07:00 Intake & Output 07/14/16 07/15/16 07/15/16 18:59 06:59 18:59 Intake Total 600 500 Balance 600 500 Intake: Intake, IV Titration 500 Amount Sodium Chloride 0.9% 1, 500 000 ml @ 50 mls/hr IV . Q20H ZAYDA Rx#:[id number] Oral 600 Other: Voiding Method Bedside Commode Bedside Commode # Voids 3 2 - Exam GENERAL EXAM: Alert, active, comfortable in no apparent distress. HEAD: Normocephalic. EYES: Normal reaction of pupils, equal size. NOSE: Clear with pink turbinates. THROAT: No erythema or exudates. NECK: No masses, no JVD. CHEST: No chest wall deformity. LUNGS: Equal air entry, prolonged expiratory wheeze, diminished bases. CVS: S1 and S2 normal with no audible mumurs, regular rhythm. ABDOMEN: No hepatosplenomegaly, normal bowel sounds, no guarding or rigidity. EXTREMITIES: No edema noted, pedal pulses palpable. SKIN: No rashes CENTRAL NERVOUS SYSTEM: No focal deficits, tone is normal in all 4 extremities. - Labs CBC & Chem 7: 07/13/16 07:47 07/13/16 07:47 Labs: Microbiology - Last 24 Hours (Table) 07/13/16 21:10 Gram Stain - Preliminary Sputum Assessment and Plan Plan: Assessment Acute exacerbation of chronic obstructive pulmonary disease Tracheobronchitis Bullous emphysema Acute exacerbation of Chronic persistent asthma Acute on chronic hypoxic respiratory failure Plan Patient could be cleared for discharge from a pulmonary stand point tomorrow, we 'll follow-up with patient in the outpatient setting.. Medications have been reviewed and will be continued. Continue with nebulizer treatments and IV steroids, also Mucinex to help with secretions. Influenza negative. Sputum cultures pending. Incentive spirometer initiated and encouraged. We may switch Levaquin to oral tomorrow. Agree with decreasing steroids. Continue with supplemental oxygen, pulmonary hygiene and supportive care. We will continue to monitor labs/results and adjust treatment as necessary. I performed an examination of the patient and discussed their management with the nurse practitioner. I have reviewed the nurse practitioner's note and agree with the documented findings and plan of care.
[2016-07-15] MEDS: FAMOTIDINE 20 MG TAB PO SCH (21:56)
[2016-07-15] MEDS: ESCITALOPRAM 20 MG TAB PO SCH (21:57)
[2016-07-16] MEDS: methylPREDNISolone SOD SUCCI 40 MG/ML 1 ML VIAL IV SCH ×2 (08:03→15:56)
[2016-07-16] MEDS: HEPARIN SODIUM,PORCINE 5,000 UNIT/ML 1 ML VIAL SQ SCH ×2 (08:03→21:29)
[2016-07-16] MEDS: guaiFENesin 600 MG TABLET.ER PO SCH ×2 (08:03→21:28)
[2016-07-16] MEDS: clonazePAM 1 MG TAB PO SCH ×2 (08:03→21:28)
[2016-07-16] MEDS: LORATADINE 10 MG TAB PO SCH (08:05)
[2016-07-16] MEDS: LEVOFLOXACIN 500 MG TAB PO SCH (08:05)
[2016-07-16] MEDS: ATENOLOL 25 MG TAB PO SCH (08:06)
[2016-07-16] MEDS: HYDROcodone/APAP 7.5-325MG 1 EACH TAB PO PRN ×2 (08:14→15:54)
[2016-07-16] MEDS: IPRATROPIUM 0.5 MG/2.5 ML NEBU INHALATION SCH ×4 (09:41→19:59)
[2016-07-16] MEDS: LEVALBUTEROL NEB (CONC) 1.25 MG/0.5 ML AMP INHALATION SCH ×4 (09:41→19:59)
[2016-07-16] MEDS: BUDESONIDE 0.5 MG/2 ML NEBU INHALATION SCH ×2 (09:42→19:57)
[2016-07-16] MEDS: ALBUTEROL NEBULIZED 2.5 MG/3 ML INHALATION SCH (11:22)
[2016-07-16] MEDS: SYMBICORT 160-4.5 MCG INHALER INHALATION SCH (11:22)
--- NOTE | 2016-07-16 12:27 | PN ---
DATE OF SERVICE: 07/16/2016 Ms. Eubanks is seen, evaluated and examined on the fourth floor. She is more short of breath than baseline having cough, congestion as well. Feels like she is swelling up. Of note that she has been refusing her nebulizer treatment, though. Her blood pressure is 145/99, respiratory rate 18, pulse 86, temperature 98, saturation 95% on 2 L oxygen. HEENT EXAMINATION: Otherwise atraumatic, normocephalic. Pharynx is clear. Narrow pharyngeal opening is present. Neck veins are prominent, but no JVD is present. HEART: Regular rate and rhythm, S1 and S2 audible. LUNGS: Bilateral coarse breath sound, inspiratory, expiratory wheezing and rhonchi are present. A few crackles at bases are noted as well. Abdomen is soft. No rebound or rigidity. EXTREMITIES: +1 peripheral pulses. NEUROLOGICAL EXAMINATION: Otherwise, awake and alert. Sputum obtained on 07/13 revealed mixed bacteria, no bacterial predominance is seen. Some Gram-positive bacilli and gram-negative with ( ) is seen though. The laboratory data reviewed. White cell count was up to 16,600, hemoglobin and hematocrit is 12 and 37, platelet count of 214,000. Chemistry otherwise within normal limits with normal BUN and creatinine. Influenza A and B both were negative. Current medications reviewed and include Tylenol with codeine 4 times a day, albuterol updraft as needed and q.i.d., atenolol is 25 mg daily, Pulmicort 2 times a day, Symbicort as needed. Also on escitalopram, fluticasone, Pepcid, guaifenesin, subQ heparin, Levaquin, loratadine, Solu-Medrol 60 q.8 hourly, IV fluid, normal saline. IMPRESSION: 1. Acute chronic obstructive pulmonary disease exacerbation and purulent tracheobronchitis with worsening. Patient has been on adequate therapy, IV steroids, antibiotics and breathing treatments; however, patient has been refusing ( ). Will change it to Xopenex and ipratropium and add Pulmicort as well. Will obtain a followup chest x-ray. 2. Other issues include hypertension, hypertensive cardiovascular disease. 3. Chronic pain syndrome, mood disorder, depression. 4. Leukocytosis, could be related to multifactorial process. Will monitor and observe. Will obtain a followup chest x-ray. Further recommendations pending. Follow up on culture results and reports as well.
--- NOTE | 2016-07-16 16:06 | PN ---
SUBJECTIVE: 61-year-old white female who was admitted with acute chronic obstructive pulmonary disease exacerbation, tracheobronchitis, state she has limited breathing, unable to get a good breath. Temperature 98.1, pulse is 88 and 90, respiratory rate 16 to 18, blood pressure is 145/99, 96% on 2 liters. Labs show a current white count of 16.6. Creatinine 0.49. LUNGS: Show scattered wheeze x4. CARDIAC: S1, S2. GI: Soft. She is maintained on 2.5 liters of oxygen at home. O2 sat is 97 today. PSYCH: Fair mood and affect. She appears anxious and nervous. She is thin, cachectic. INTEGUMENT: Shows no rashes, excoriations, bruising. ASSESSMENT: 1. Acute chronic obstructive pulmonary disease exacerbation. 2. Tracheobronchitis plus emphysema. 3. Chronic asthma exacerbation. 4. Acute hypoxemic respiratory failure. Tomorrow will probably discharge her home on oral Levaquin, steroid taper, 2.5 liters of oxygen, updraft treatments. Please see further orders.
[2016-07-16] MEDS: ESCITALOPRAM 20 MG TAB PO SCH (21:28)
[2016-07-16] MEDS: FAMOTIDINE 20 MG TAB PO SCH (21:28)
[2016-07-17] MEDS: methylPREDNISolone SOD SUCCI 40 MG/ML 1 ML VIAL IV SCH ×3 (00:40→16:17)
[2016-07-17] MEDS: SODIUM CHLORIDE 0.9% 1,000 ML IV SCH ×2 (00:43→21:27)
[2016-07-17] MEDS: HYDROcodone/APAP 7.5-325MG 1 EACH TAB PO PRN ×3 (06:12→21:18)
[2016-07-17 08:01] LABS: Basophils % (A) 0 %; CHCM 31.9; Eosinophils % (A) 0 %; HCT 34.8 % (34.0-46.0); HDW 2.43; HGB 10.9 gm/dL (11.4-16.0); Luc # (Auto) 0.09; Luc % (Auto) 1; Lymphocytes # (A) 0.6 k/uL (1.0-4.8); Lymphocytes % (A) 9 %; MCH 28.6 pg (25.0-35.0); MCHC 31.4 g/dL (31.0-37.0); MCV 91.2 fL (80.0-100.0); Mean Platelet Volume 7.3; Monocytes # (A) 0.4 k/uL (0-1.0); Monocytes % (A) 5 %; Neutrophils # (A) 6.1 k/uL (1.3-7.7); Neutrophils % (A) 84 %; RBC 3.81 m/uL (3.80-5.40); RDW 13.7 % (11.5-15.5); WBC 7.3 k/uL (3.8-10.6); WBC (Perox) 7.79
--- NOTE | 2016-07-17 08:11 | XR ---
EXAMINATION TYPE: XR chest 1V portable DATE OF EXAM: 07/17/2016 7:37 AM COMPARISON: 07/12/2016 INDICATION: Pneumonia TECHNIQUE: Single frontal view of the chest is obtained. FINDINGS: The heart size is normal. The pulmonary vasculature is normal. There is minimal linear infiltrate along the left diaphragm most likely on the basis of subsegmental atelectasis. Early pneumonia could be considered. IMPRESSION: 1. Left lower lobe infiltrate. Correlate for atelectasis or pneumonia
[2016-07-17] MEDS: BUDESONIDE 0.5 MG/2 ML NEBU INHALATION SCH ×2 (08:12→20:15)
[2016-07-17] MEDS: IPRATROPIUM 0.5 MG/2.5 ML NEBU INHALATION SCH ×4 (08:13→20:15)
[2016-07-17] MEDS: LEVALBUTEROL NEB (CONC) 1.25 MG/0.5 ML AMP INHALATION SCH ×4 (08:13→20:15)
[2016-07-17 08:17] LABS: ALT 34 U/L (9-52); AST 19 U/L (14-36); Alkaline Phosphatase 51 U/L (38-126); Anion Gap 7 mmol/L; Blood Urea Nitrogen 11 mg/dL (7-17); Calcium 9.3 mg/dL (8.4-10.2); Carbon Dioxide 36 mmol/L (22-30); Chloride 101 mmol/L (98-107); Glucose 108 mg/dL (74-99); Non-African American GFR(MDRD) >60 (>60 ml/min/1.73 sqM); Potassium 3.9 mmol/L (3.5-5.1); Sodium 144 mmol/L (137-145); Total Bilirubin 0.8 mg/dL (0.2-1.3); Total Protein 6.4 g/dL (6.3-8.2)
[2016-07-17] MEDS: LEVOFLOXACIN 500 MG TAB PO SCH (08:58)
[2016-07-17] MEDS: clonazePAM 1 MG TAB PO SCH ×2 (08:58→21:17)
[2016-07-17] MEDS: LORATADINE 10 MG TAB PO SCH (08:59)
[2016-07-17] MEDS: HEPARIN SODIUM,PORCINE 5,000 UNIT/ML 1 ML VIAL SQ SCH ×3 (08:59→21:27)
[2016-07-17] MEDS: guaiFENesin 600 MG TABLET.ER PO SCH ×2 (08:59→21:18)
[2016-07-17] MEDS: ATENOLOL 25 MG TAB PO SCH (09:44)
--- NOTE | 2016-07-17 16:43 | PN ---
Shanelle Eubanks who is seen, evaluated and examined. The patient appears to have tolerated the Xopenex updraft fairly well without any exacerbation. She feels slightly better, but still very congested, still has cough and gets short of breath and wheezing on minimal activity and exertion. The sputum final studies has been reviewed. Overall normal respiratory estelita is seen. Other medications reviewed. Her last set of vitals include blood pressure is 163/76, respiratory rate 18, pulse 71, temperature 98 to 93% on 2 liters oxygen. HEENT: Unremarkable. NECK: Supple. LUNGS: Good air entry bilaterally. HEART: Regular rate and rhythm. S1 and S2 audible. ABDOMEN: Soft. No rebound or rigidity. EXTREMITIES: +1. NEUROLOGICAL EXAMINATION: Awake and alert. Fine expiratory rhonchi are present as well. IMPRESSION: 1. Acute chronic obstructive pulmonary disease. 2. Purulent tracheobronchitis. 3. Generalized anxiety disorder. 4. Chest x-ray performed today has been reviewed. The patient does have evidence of the left lower lobe pneumonia. However, patient is adequately treated with oral Levaquin. Will obtain a follow-up chest x-ray in next 24 to 48 hours. I suspected that this pneumonia, which is seen now, was not manifested at that time for previous radiographic studies. Will follow.
[2016-07-17] MEDS: FAMOTIDINE 20 MG TAB PO SCH (21:17)
[2016-07-17] MEDS: ESCITALOPRAM 20 MG TAB PO SCH (21:18)
[2016-07-18] MEDS: methylPREDNISolone SOD SUCCI 40 MG/ML 1 ML VIAL IV SCH ×2 (01:02→08:37)
[2016-07-18] MEDS: LEVALBUTEROL NEB (CONC) 1.25 MG/0.5 ML AMP INHALATION SCH ×2 (07:35→11:10)
[2016-07-18] MEDS: BUDESONIDE 0.5 MG/2 ML NEBU INHALATION SCH (07:35)
[2016-07-18] MEDS: IPRATROPIUM 0.5 MG/2.5 ML NEBU INHALATION SCH ×2 (07:36→11:10)
[2016-07-18 07:42] VITALS: BP 165/82; RESP 18; TEMP 98.4
[2016-07-18] MEDS: guaiFENesin 600 MG TABLET.ER PO SCH (08:37)
[2016-07-18] MEDS: ATENOLOL 25 MG TAB PO SCH (08:37)
[2016-07-18] MEDS: LORATADINE 10 MG TAB PO SCH (08:38)
[2016-07-18] MEDS: LEVOFLOXACIN 500 MG TAB PO SCH (08:38)
[2016-07-18] MEDS: HEPARIN SODIUM,PORCINE 5,000 UNIT/ML 1 ML VIAL SQ SCH (08:38)
[2016-07-18] MEDS: HYDROcodone/APAP 7.5-325MG 1 EACH TAB PO PRN (08:40)
[2016-07-18] MEDS: clonazePAM 1 MG TAB PO SCH (08:40)
--- NOTE | 2016-07-18 10:23 | PN ---
SUBJECTIVE: This is a 61-year-old white female who was admitted. She is tolerating Xopenex fairly well. She is still very congested, coughing and wheezing. Blood pressure 160s/70s. Pulse 70s, respiratory rate 16 to 18, O2 is 93% to 98% on 2 liters. CARDIOVASCULAR: S1, S2. LUNGS: Scattered wheeze x4. HEMATOLOGIC: Negative Homans. GI: Soft, nontender. ASSESSMENT: 1. Acute chronic obstructive pulmonary disease. 2. Purulent tracheobronchitis. 3. Anxiety. 4. Left lower lobe pneumonia. Continue Levaquin and possible discharge home when cleared by pulmonology, Dr. Vann.
[2016-07-18 11:22] VITALS: PULSE 74
--- NOTE | 2016-07-18 11:57 | P.PN ---
Subjective This patient was sent over from Dr. Aguilar's office for acute exacerbation of COPD. This patient has an extensive pulmonary history including bullous emphysema, COPD, and chronic persistent asthma. He also uses home oxygen at 2-1 /2 L nasal cannula around the clock. The patient also has had a thoracotomy to remove benign mass near her right long in the past. She has a nicotine dependent and is still currently smoking, greater than 30 year history.. The patient denies any recent fever, chills, sweats, nausea, vomiting, diarrhea or constipation. influenza A and B were negative, sputum negative, chest x-ray shows no acute pulmonary process. Upon examination the patient is resting up in bed on 2.5 L of oxygen she is short of breath with exertion She continues to have her chronic cough which is congested, however this as improved. Patient could go home in the near future. Objective - Vital Signs Vital signs: Vital Signs Temp 98.4 F 07/18/16 07:00 Pulse 74 07/18/16 11:22 Resp 18 07/18/16 07:00 BP 165/82 07/18/16 07:00 Pulse Ox 94 L 07/18/16 07:38 Intake & Output 07/17/16 07/18/16 07/18/16 18:59 06:59 18:59 Intake Total 1180 Balance 1180 Intake: Oral 1180 Other: Voiding Method Bedside Commode Bedside Commode Bedside Commode # Voids 1 2 1 # Bowel Movements 1 - Exam GENERAL EXAM: Alert, active, comfortable in no apparent distress. HEAD: Normocephalic. EYES: Normal reaction of pupils, equal size. NOSE: Clear with pink turbinates. THROAT: No erythema or exudates. NECK: No masses, no JVD. CHEST: No chest wall deformity. LUNGS: Equal air entry, prolonged expiratory wheeze, diminished bases. CVS: S1 and S2 normal with no audible mumurs, regular rhythm. ABDOMEN: No hepatosplenomegaly, normal bowel sounds, no guarding or rigidity. EXTREMITIES: No edema noted, pedal pulses palpable. SKIN: No rashes CENTRAL NERVOUS SYSTEM: No focal deficits, tone is normal in all 4 extremities. - Labs CBC & Chem 7: 07/17/16 07:02 07/17/16 07:02 Assessment and Plan Plan: Assessment Acute exacerbation of chronic obstructive pulmonary disease Tracheobronchitis Bullous emphysema Acute exacerbation of Chronic persistent asthma Acute on chronic hypoxic respiratory failure Plan Patient could be cleared for discharge from a pulmonary stand point, we'll follow-up with patient in the outpatient setting. Medications have been reviewed and will be continued. Continue with nebulizer treatments and IV steroids, also Mucinex to help with secretions. Influenza negative. Sputum cultures reviewed. Incentive spirometer initiated and encouraged. Continue with supplemental oxygen, pulmonary hygiene and supportive care. We will continue to monitor labs/results and adjust treatment as necessary. I performed an examination of the patient and discussed their management with the nurse practitioner. I have reviewed the nurse practitioner's note and agree with the documented findings and plan of care.
--- NOTE | 2016-07-18 12:12 | HP ---
DATE OF ADMISSION: 07/18/2016. CHIEF COMPLAINT: A 61-year-old white female with progressive shortness of breath and cough, congestion, worse than normal. She is on 3 liters of oxygen normally at home for end-stage COPD but she was short of breath at rest and unable to ambulate at all. Failing outpatient treatment with multiple steroids and antibiotics and updraft treatments. She has a history of bullous emphysema. She is a nicotine smoker, cough, congestion, green-yellow phlegm. 14 point review of systems negative except for what is mentioned in HPI. PAST MEDICAL HISTORY: COPD, asthma, GERD, hypertension, osteoarthritis, renal disease with bullous emphysema, CO2 2 liters nasal cannula. Osteoarthritis, nephrolithiasis, adenoidectomy, tonsillectomy, tubal ligation, thoracotomy of the lung, anxiety, depression, panic disorder, current every day smoker, down to 6 cigarettes a day. 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 Father coronary artery disease, myocardial infarction. Mother cancer, brother cancer, bladder cancer, myeloleukemia. Home Medications: 1. Lexapro. 2. Advair. 3. Pro-air. 4. Klonopin. 5. Zantac. 6. Zyrtec. 7. Ventolin. 8. Tenormin. ALLERGIES: IODINE, PENICILLIN AND MOLD. PHYSICAL EXAMINATION: Temp 98.2, pulse 70s to 80s, respiratory rate 16 to 18, blood pressure is 100 to 140/70's to 80s. O2 87% on 2 to 3 liters. ASSESSMENT: 1. Acute chronic obstructive pulmonary disease exacerbation. 2. Acute tracheobronchitis. 3. Acute hypoxemic respiratory failure. 4. History of coronary artery disease. PLAN: IV steroids, albuterol and Atrovent updrafts, Pulmicort updrafts. Pulmonary consultation. Please see further orders.
--- NOTE | 2016-07-19 09:57 | DS ---
DATE OF ADMISSION: 07/12/2016 DATE OF DISCHARGE: 07/18/2016 DISCHARGE MEDICATIONS: 1. Tenormin 25 mg daily. 2. Pulmicort 0.5 mg b.i.d. 3. Klonopin 1 mg b.i.d. 4. Lexapro 20 q. day. 5. Pepcid 40 daily. 6. Flonase one spray in each nostril daily. 7. Mucinex 1200 q.12 hours. 8. [place] 7.5 every 6 hours p.r.n. 9. Atrovent nebulizer q.i.d. 10. Albuterol or Xopenex q.i.d. 11. Levaquin 500 mg daily for a week. 12. Claritin 10 mg daily. 13. Medrol Dosepak. CONDITION: Stable. PROGNOSIS: Guarded. Ambulate as tolerated. HOSPITAL COURSE OF EVENTS: A white female was admitted with COPD exacerbation, tracheobronchitis. Seen by scientific photographer throughout the hospital stay. Prolonged stay was needed due to that she has end-stage lung disease on 2 to 3 L 24 hours a day anyways, due to significant respiratory failure. She is kept in for multiple days receiving IV Solu-Medrol and updraft treatments. DISCHARGE DIAGNOSES: 1. Acute hypoxemic respiratory failure secondary to chronic obstructive pulmonary disease exacerbation and coronary artery disease. 2. Renal disease. 3. Hypertension, 4. Dyslipidemia. 5. Generalized debility. 6. O2 dependent CO2. 7. Bullous emphysema. 8. Acute exacerbation of chronic persistent asthma. Please see orders at this time for discharge summary.
== END 2016-07-18 12:58 | disposition home health service (06) | DRG 190 ==
LOC: 5MS5E 11:45
PROVIDERS: ADMIT Family Medicine; ATTEND Family Medicine
DX: J44.0 Chronic obstructive pulmonary disease with (acute) lower respiratory infection (principal); J18.9 Pneumonia, unspecified organism; J96.21 Acute and chronic respiratory failure with hypoxia; J45.901 Unspecified asthma with (acute) exacerbation; R64 Cachexia; Z99.81 Dependence on supplemental oxygen; K21.9 Gastro-esophageal reflux disease without esophagitis; I11.9 Hypertensive heart disease without heart failure; J44.1 Chronic obstructive pulmonary disease with (acute) exacerbation; E78.5 Hyperlipidemia, unspecified; F17.200 Nicotine dependence, unspecified, uncomplicated; F32.9 Major depressive disorder, single episode, unspecified; F41.0 Panic disorder [episodic paroxysmal anxiety]; F41.1 Generalized anxiety disorder; G89.4 Chronic pain syndrome; I25.10 Atherosclerotic heart disease of native coronary artery without angina pectoris; J20.9 Acute bronchitis, unspecified; N28.9 Disorder of kidney and ureter, unspecified; Z79.899 Other long term (current) drug therapy; Z80.52 Family history of malignant neoplasm of bladder; Z80.6 Family history of leukemia; Z82.49 Family history of ischemic heart disease and other diseases of the circulatory system; Z87.442 Personal history of urinary calculi; Z88.0 Allergy status to penicillin; Z91.041 Radiographic dye allergy status; Z88.5 Allergy status to narcotic agent
CPT/HCPCS: 71010; 71020; 80053; 85025; 87070; 87205; 87502; 94640; 94760

== ENCOUNTER → 2016-09-26 | Outpatient (CLI) | payer MEDICARE ==
--- NOTE | 2016-09-26 15:49 | CT ---
EXAMINATION TYPE: CT chest abdomen wo con DATE OF EXAM: 09/26/2016 COMPARISON: 05/28/2014 HISTORY: Patient complains of difficulty breathing and RUQ pain. Patient has known COPD. CT DLP: 517 mGycm Automated exposure control for dose reduction was used. FINDINGS: CT chest: Portion of the thyroid visualized is normal. The ascending thoracic aorta at the level the main pulmonary artery measures 3.2 cm. The main pulmonary artery the bifurcation measures 2.2 cm. No enlarged mediastinal adenopathy is evident. A couple of small aortopulmonic window lymph nodes are pr esent. There is a 0.4 cm nodule at the posterior medial right lung base. There is a nodular density in the p osterior left lung base measuring 0.9 cm. Some streak opacity is adjacent. Some increased scattered l inear densities within the left midlung. Emphysematous changes are present. Vascular calcifications w ithin the aorta. CT ABDOMEN: Liver and spleen are normal density without discrete masses or cysts. The pancreas is nor mal. The adrenal glands are normal. Kidneys are normal without masses cysts or hydronephrosis. There are several punctate nonobstructing 0.2 cm left-sided renal stones. Aorta and inferior vena cava are unremarkable. Loops of bowel visualized are normal. Inferior vena cava is unremarkable. Adrenal gland s are normal. Gallbladder contains a gallstone. IMPRESSION: 1. CHOLELITHIASIS. 2. BILATERAL LUNG BASE LUNG NODULES. FOLLOW-UP IS RECOMMENDED. THESE APPEAR NEW FROM MAY 2014.
== END | disposition home or self-care (01) ==
LOC: RADCTMAIN 15:06
PROVIDERS: ATTEND Family Medicine
DX: K80.20 Calculus of gallbladder without cholecystitis without obstruction (principal); R91.8 Other nonspecific abnormal finding of lung field
CPT/HCPCS: 71250; 74150

== ENCOUNTER 2016-12-10 15:20 | Emergency (ER) | payer MEDICARE ==
[2016-12-10 15:24] VITALS: TEMP 98.8
[2016-12-10] MEDS ORDERED: IPRATROPIUM-ALBUTEROL 3 ML NEB INHALATION STA (16:06)
[2016-12-10] MEDS ORDERED: methylPREDNISolone SOD SUCCI 125 MG/2 ML VIAL IV STA (16:06)
[2016-12-10] MEDS ORDERED: SODIUM CHLORIDE 0.9% 1,000 ML IV STA (16:07)
--- NOTE | 2016-12-10 16:14 | ED ---
General Adult HPI - General Chief complaint: Shortness of Breath Stated complaint: infection Time Seen by Provider: 12/10/16 15:26 Source: patient, family, RN notes reviewed, old records reviewed Mode of arrival: wheelchair Limitations: no limitations - History of Present Illness Initial comments: Chief complaint history of present illness a 61-year-old female reports she's had on-again off-again urinary tract infections kidney stone and pneumonia 4 months. Recently finished Cipro for urinary tract infection and Bactrim as well. Patient has end-stage COPD. - Related Data Home Medications Medication Instructions Recorded Confirmed Albuterol Sulfate [Proair Hfa] 2 puff INHALATION RT-Q6H PRN 09/13/13 12/10/16 Escitalopram [Lexapro] 20 mg PO HS 09/13/13 12/10/16 Fluticasone Propionate [Flonase] 1 spray EA NOSTRIL DAILY 09/13/13 12/10/16 Fluticasone/Salmeterol [Advair 1 puff INHALATION RT-BID 09/13/13 12/10/16 250-50 Diskus] clonazePAM [KlonoPIN] 1 mg PO TID 09/13/13 12/10/16 Ranitidine HCl [Zantac] 150 mg PO W/SUPPER 04/21/15 12/10/16 Cetirizine HCl [Zyrtec] 10 mg PO QAM 05/11/16 12/10/16 Albuterol Nebulized [Ventolin 2.5 mg INHALATION RT-QID PRN 07/12/16 12/10/16 Nebulized] Atenolol [Tenormin] 12.5 mg PO QAM 07/12/16 12/10/16 ALPRAZolam [Xanax] 0.5 mg PO DAILY PRN 12/10/16 12/10/16 Ciprofloxacin HCl [Cipro] 500 mg PO DAILY 12/10/16 12/10/16 HYDROcodone/APAP 7.5-325MG [[place] 1 tab PO BID 12/10/16 12/10/16 7.5-325] Ipratropium Nebulized [Atrovent 0.5 mg INHALATION RT-QID PRN 12/10/16 12/10/16 Nebulized] Montelukast [Singulair] 10 mg PO HS 12/10/16 12/10/16 Umeclidinium [place] [Incruse 1 puff INHALATION RT-HS 12/10/16 12/10/16 Ellipta] Allergies Allergy/AdvReac Type Severity Reaction Status Date / Time codeine Allergy Anaphylaxis Verified 12/10/16 16:49 Iodinated Contrast- Oral and Allergy Anaphylaxis Verified 12/10/16 16:49 IV Dye [Iodinated Contrast Media - IV Dye] mold Allergy Anaphylaxis Verified 12/10/16 16:49 Penicillins Allergy Anaphylaxis Verified 12/10/16 16:49 morphine AdvReac Hallucinati Verified 12/10/16 16:49 ons Review of Systems ROS Statement: Those systems with pertinent positive or pertinent negative responses have been documented in the HPI. Review of systems. No headache or visual acuity changes she has a dry tacky persistent cough, short of breath frequently. Pulse ox 3 L nasal cannula. Occasional on-again off-again flank left flank pain. Has had hematuria and has had lithotripsy for large stones. More recently had a CAT scan which showed recurrent stones. No neuro deficits. All systems are reviewed. Past medical problems and states COPD, GERD, hypertension, osteoarthritis, chronic renal disease form of stones. Also bolused him to seem a. Patient surgeries tonsils , adenoids tubal ligation she had a thoracotomy for a mass that was connected from the pericardium to the right lung area. She reports is benign. Family history includes cancers of the throat, leukemia and bladder. The patient reports that she has ALLERGIES to codeine, iodine contrast both oral and IV, morphine and penicillin as well as mold. Patient does smoke strongly encouraged to stop. Denies alcohol use ROS Other: All systems not noted in ROS Statement are negative. Past Medical History Past Medical History: Asthma, COPD, GERD/Reflux, Hypertension, Osteoarthritis ( OA), Renal Disease, Respiratory Disorder Additional Past Medical History / Comment(s): BULLOUS EMPHYSEMA, end stage COPD uses O2 at 2.5L/NC ATC, arthritis-multiple joints, nephrolithiasis-has passed stones on her own and also removed surgically. History of Any Multi-Drug Resistant Organisms: None Reported Past Surgical History: Adenoidectomy, Tonsillectomy, Tubal Ligation Additional Past Surgical History / Comment(s): THORACOTMY TO REMOVE BENIGN MASS NEAR RT LUNG, ESWLs, EGD/colonoscopy, laparoscopic surgery for bladder polyps and female problems. Past Anesthesia/Blood Transfusion Reactions: No Reported Reaction Additional Past Anesthesia/Blood Transfusion Reaction / Comment(s): The patients son carries the gene for malignant hyperthermia but has not had a reaction to anethesia. Pt has not had herself tested. Past Psychological History: Anxiety, Depression, Panic Disorder Smoking Status: Current every day smoker Past Alcohol Use History: None Reported Past Drug Use History: Marijuana - Past Family History Son(s) Additional Family Medical History / Comment(s): carries the gene for malignant hyperthermia. He had had anethesia without and reaction Father Family Medical History: Coronary Artery Disease (CAD), Myocardial Infarction ([place] ), Renal Disease Additional Family Medical History / Comment(s): Father of a [place] at the age of 59yrs. Mother Family Medical History: Cancer Additional Family Medical History / Comment(s): Mother of leukemia at the age of 57yrs. Brother(s) Family Medical History: Cancer Additional Family Medical History / Comment(s): Brother of bladder cancer at the age of 50yrs. General Exam - General Exam Comments Initial Comments: General: The patient is awake and alert, become short of breath when she has coughing fits the last 10-15 seconds. Vital signs temp 98.8 pulse 95 respiratory rate 20 pulse ox 95% on 3 L. Blood pressure 101/ 59 Eye: Pupils are equal, round and reactive to light, extra-ocular movements are intact ; there is normal conjunctiva bilaterally. No signs of icterus. Ears, nose, mouth and throat: There are moist mucous membranes . Neck: The neck is supple, there is no tenderness Cardiovascular: There is a regular rate and rhythm. No murmur, rub or gallop is appreciated. Respiratory: Decreased air entry bilaterally with wheezing on expiration. History of end- stage COPD. Gastrointestinal: Soft, non-distended, non-tender abdomen without masses or organomegaly noted. There is no rebound or guarding present. No CVA tenderness. Bowel sounds are unremarkable. Back: There is no tenderness to palpation in the midline. There is no obvious deformity. No rashes noted. Flank discomfort. Musculoskeletal: Normal ROM, no tenderness, There is no pedal edema. There is no calf tenderness or swelling. Sensation intact. Pulses equal bilaterally 2+. Neurological: No neuro deficits Skin: Skin is warm and dry and no rashes or lesions are noted. Limitations: no limitations Course Vital Signs 12/10/16 12/10/16 12/10/16 15:21 16:39 16:54 Temperature 98.8 F Pulse Rate 95 87 83 Respiratory 20 20 Rate Blood Pressure 101/59 118/66 O2 Sat by Pulse 95 97 Oximetry 12/10/16 12/10/16 17:05 17:39 Temperature Pulse Rate 88 76 Respiratory 18 Rate Blood Pressure 109/65 O2 Sat by Pulse 96 Oximetry EKG Findings - EKG Comments: EKG Findings:: EKG was done and reviewed at 1629 showing normal sinus rhythm with prolonged QT. No acute ST elevation no ectopy appreciated. Does appear to be 60 cycle interference. Patient's ventricular rate 85 RI was 154 QRS [address]Tc [address] Maldonado Medical Decision Making - Medical Decision Making Chest x-ray is done AP and lateral view and reviewed by radiologist entire report was reviewed the final impression is; no acute cardiopulmonary process. Bilateral subsegmental scattered areas of atelectasis. Stable pulmonary emphysema. As read by Dr. Merrill X-ray of the abdomen was done and reviewed by radiologist. Final impression is no visualized renal or ureteral calculi. Phleboliths within the low pelvis appear similar to prior exam of 06/16/2016 without new densities suggestive passed calculus. As reported by Dr. Merrill I discussed the case with Dr. Aguilar, he must patient admitted for exacerbation of COPD continued on Bactrim by mouth. With treatment of her COPD. - Lab Data Result diagrams: 12/10/16 16:22 12/10/16 16:26 Lab Results 12/10/16 12/10/16 12/10/16 Range/Units 16:22 16:26 16:26 WBC 4.6 (3.8-10.6) k/uL RBC 3.89 (3.80-5.40) m/uL Hgb 11.4 (11.4-16.0) gm/dL Hct 35.1 (34.0-46.0) % MCV 90.1 (80.0-100.0) fL MCH 29.2 (25.0-35.0) pg MCHC 32.4 (31.0-37.0) g/dL RDW 14.7 (11.5-15.5) % Plt Count 284 (150-450) k/uL Neutrophils % 43 % Lymphocytes % 46 % Monocytes % 6 % Eosinophils % 3 % Basophils % 0 % Neutrophils # 1.9 (1.3-7.7) k/uL Lymphocytes # 2.1 (1.0-4.8) k/uL Monocytes # 0.3 (0-1.0) k/uL Eosinophils # 0.1 (0-0.7) k/uL Basophils # 0.0 (0-0.2) k/uL PT (9.0-12.0) sec INR (<1.2) APTT (22.0-30.0) sec Sodium 142 (137-145) mmol/L Potassium 3.9 (3.5-5.1) mmol/L Chloride 104 (98-107) mmol/L Carbon Dioxide 31 H (22-30) mmol/L Anion Gap 7 mmol/L BUN 13 (7-17) mg/dL Creatinine 0.63 (0.52-1.04) mg/dL Est GFR (MDRD) Af Amer >60 (>60 ml/min/1.73 sqM) Est GFR (MDRD) Non-Af >60 (>60 ml/min/1.73 sqM) Glucose 89 (74-99) mg/dL Calcium 9.1 (8.4-10.2) mg/dL Magnesium 1.5 L (1.6-2.3) mg/dL Total Bilirubin 0.3 (0.2-1.3) mg/dL AST 26 (14-36) U/L ALT 29 (9-52) U/L Alkaline Phosphatase 67 (38-126) U/L Total Creatine Kinase 63 (30-135) U/L CK-MB (CK-2) 0.8 (0.0-2.4) ng/mL CK-MB (CK-2) Rel Index 1.3 Troponin I <0.012 (0.000-0.034) ng/mL NT-Pro-B Natriuret Pep pg/mL Total Protein 6.2 L (6.3-8.2) g/dL Albumin 3.6 (3.5-5.0) g/dL 12/10/16 12/10/16 Range/Units 16:26 16:26 WBC (3.8-10.6) k/uL RBC (3.80-5.40) m/uL Hgb (11.4-16.0) gm/dL Hct (34.0-46.0) % MCV (80.0-100.0) fL MCH (25.0-35.0) pg MCHC (31.0-37.0) g/dL RDW (11.5-15.5) % Plt Count (150-450) k/uL Neutrophils % % Lymphocytes % % Monocytes % % Eosinophils % % Basophils % % Neutrophils # (1.3-7.7) k/uL Lymphocytes # (1.0-4.8) k/uL Monocytes # (0-1.0) k/uL Eosinophils # (0-0.7) k/uL Basophils # (0-0.2) k/uL PT 10.2 (9.0-12.0) sec INR 1.0 (<1.2) APTT 24.5 (22.0-30.0) sec Sodium (137-145) mmol/L Potassium (3.5-5.1) mmol/L Chloride (98-107) mmol/L Carbon Dioxide (22-30) mmol/L Anion Gap mmol/L BUN (7-17) mg/dL Creatinine (0.52-1.04) mg/dL Est GFR (MDRD) Af Amer (>60 ml/min/1.73 sqM) Est GFR (MDRD) Non-Af (>60 ml/min/1.73 sqM) Glucose (74-99) mg/dL Calcium (8.4-10.2) mg/dL Magnesium (1.6-2.3) mg/dL Total Bilirubin (0.2-1.3) mg/dL AST (14-36) U/L ALT (9-52) U/L Alkaline Phosphatase (38-126) U/L Total Creatine Kinase (30-135) U/L CK-MB (CK-2) (0.0-2.4) ng/mL CK-MB (CK-2) Rel Index Troponin I (0.000-0.034) ng/mL NT-Pro-B Natriuret Pep 180 pg/mL Total Protein (6.3-8.2) g/dL Albumin (3.5-5.0) g/dL Disposition Clinical Impression: Acute exacerbation of chronic obstructive pulmonary disease (COPD) Disposition: ADMITTED IP TO THIS HOSP Condition: Fair Referrals: Chris Aguilar MD [Primary Care Provider] - 1-2 days
--- NOTE | 2016-12-10 16:29 | XR ---
EXAMINATION TYPE: XR abdomen 2V DATE OF EXAM: 12/10/2016 4:13 PM CLINICAL HISTORY: Left flank pain with history of nephrolithiasis. TECHNIQUE: Upright and supine radiographs were obtained. COMPARISON: None. FINDINGS: No radiopaque calculi are seen over the renal shadows. Phleboliths appear similar within th e low pelvis. Mild degenerative changes are seen at L5-S1 and of the femoral acetabular joints. Overa ll bowel gas pattern is nonobstructive. No pneumoperitoneum is appreciated on the upright image. Lung bases are clear. IMPRESSION: 1. No visualized renal or ureteral calculi. Phleboliths within the low pelvis appear similar to the p rior exam of 06/16/2016 without new densities to suggest passed calculus.
--- NOTE | 2016-12-10 16:32 | XR ---
EXAMINATION TYPE: XR chest 2V DATE OF EXAM: 12/10/2016 COMPARISON: 07/17/2016 and 10/06/2016 HISTORY: Pain TECHNIQUE: Frontal and lateral views of the chest are obtained. FINDINGS: There is no focal air space opacity, pleural effusion, or pneumothorax seen. Pulmonary hyp erinflation, tapering of the pulmonary vasculature, and biapical lucency is seen compatible with the patient's history of pulmonary emphysema. Linear platelike subsegmental atelectasis is seen periphera lly within both midlungs. The cardiac silhouette size is within normal limits. The osseous structur es are intact. The known 4 mm and 9 mm pulmonary nodule seen on the prior exam of 09/26/2016 are not vi sualized due to technique and better seen on CT. IMPRESSION: No acute cardiopulmonary process. Bilateral subsegmental scattered areas of atelectasis. Stable pulmonary emphysema.
[2016-12-10 17:01] LABS: Basophils % (A) 0 %; CH 29.7; CHCM 33.1; Eosinophils # (A) 0.1 k/uL (0-0.7); Eosinophils % (A) 3 %; HCT 35.1 % (34.0-46.0); HDW 2.28; HGB 11.4 gm/dL (11.4-16.0); Luc # (Auto) 0.13; Luc % (Auto) 3; Lymphocytes # (A) 2.1 k/uL (1.0-4.8); Lymphocytes % (A) 46 %; MCH 29.2 pg (25.0-35.0); MCHC 32.4 g/dL (31.0-37.0); MCV 90.1 fL (80.0-100.0); Mean Platelet Volume 7.5; Monocytes # (A) 0.3 k/uL (0-1.0); Monocytes % (A) 6 %; Neutrophils # (A) 1.9 k/uL (1.3-7.7); Neutrophils % (A) 43 %; RBC 3.89 m/uL (3.80-5.40); RDW 14.7 % (11.5-15.5); WBC 4.6 k/uL (3.8-10.6); WBC (Perox) 4.67
[2016-12-10 17:11] LABS: Partial Thromboplastin Time 24.5 sec (22.0-30.0); Prothrombin Time 10.2 sec (9.0-12.0)
[2016-12-10 17:20] LABS: ALT 29 U/L (9-52); AST 26 U/L (14-36); Alkaline Phosphatase 67 U/L (38-126); Anion Gap 7 mmol/L; Blood Urea Nitrogen 13 mg/dL (7-17); Calcium 9.1 mg/dL (8.4-10.2); Carbon Dioxide 31 mmol/L (22-30); Chloride 104 mmol/L (98-107); Glucose 89 mg/dL (74-99); Magnesium 1.5 mg/dL (1.6-2.3); Non-African American GFR(MDRD) >60 (>60 ml/min/1.73 sqM); Potassium 3.9 mmol/L (3.5-5.1); Sodium 142 mmol/L (137-145); Total Bilirubin 0.3 mg/dL (0.2-1.3); Total Protein 6.2 g/dL (6.3-8.2)
[2016-12-10 17:30] LABS: Creatine Kinase 63 U/L (30-135)
[2016-12-10 17:42] LABS: Creatine Kinase MB 0.8 ng/mL (0.0-2.4); Troponin I <0.012 ng/mL (0.000-0.034)
[2016-12-10 18:03] VITALS: PULSE 76; RESP 18
[2016-12-10 18:37] VITALS: BP 120/73
[2016-12-10] MEDS ORDERED: IPRATROPIUM-ALBUTEROL 3 ML NEB INHALATION PRN (18:37)
[2016-12-10] MEDS ORDERED: NALOXONE 0.4 MG/ML 1 ML VIAL IV PRN (18:37)
[2016-12-10] MEDS ORDERED: ALPRAZolam 0.5 MG TAB PO PRN (18:41)
[2016-12-10] MEDS ORDERED: SODIUM CHLORIDE 0.9% 1,000 ML IV SCH (18:45)
[2016-12-10] MEDS ORDERED: MAGNESIUM SULFATE-D5W PMX 1 GM in DEXTROSE/WATER 1 100ML.BAG IVPB SCH (19:00)
[2016-12-10 19:29] LABS: Appearance,Urine Clear (Clear); Bilirubin,Urine Negative (Negative); Glucose,Urine (UA) Negative (Negative); Ketones,Urine Negative (Negative); Leukocyte Esterase,Urine Negative (Negative); Nitrite,Urine Negative (Negative); PH, Urine 5.5 (5.0-8.0); Protein,Urine Trace (Negative); Specific Gravity,Urine 1.029 (1.001-1.035); UA Billing (MACRO vs. MICRO) CHEM; Urobilinogen,Urine <2.0 mg/dL (<2.0)
[2016-12-10] MEDS ORDERED: SYMBICORT 80-4.5 MCG INHALER INHALATION SCH (20:00)
[2016-12-10] MEDS ORDERED: HYDROcodone/APAP 7.5-325MG 1 EACH TAB PO SCH (21:00)
[2016-12-10] MEDS ORDERED: MONTELUKAST 10 MG TAB PO SCH (21:00)
[2016-12-10] MEDS ORDERED: ESCITALOPRAM 20 MG TAB PO SCH (21:00)
[2016-12-10] MEDS ORDERED: CIPROFLOXACIN HCL 500 MG TAB PO SCH (21:00)
[2016-12-10] MEDS ORDERED: clonazePAM 1 MG TAB PO SCH (22:00)
[2016-12-11] MEDS ORDERED: methylPREDNISolone SOD SUCCI 125 MG/2 ML VIAL IV SCH
[2016-12-11] MEDS ORDERED: TIOTROPIUM 18 MCG/PUFF INHALER INHALATION SCH (08:00)
[2016-12-11] MEDS ORDERED: LORATADINE 10 MG TAB PO SCH (09:00)
[2016-12-11] MEDS ORDERED: FLUTICASONE 50MCG/SPRAY NASAL 16GM EA NOSTRIL SCH (09:00)
[2016-12-11] MEDS ORDERED: ATENOLOL 25 MG TAB PO SCH (09:00)
[2016-12-11] MEDS ORDERED: FAMOTIDINE 20 MG TAB PO SCH (17:30)
== END 2016-12-10 19:39 | disposition other institution (70) ==
LOC: EC 15:20 → UNDOADMOB 18:37 → 3OBS 18:37 → EC 19:39
DX: J44.1 Chronic obstructive pulmonary disease with (acute) exacerbation (principal); K21.9 Gastro-esophageal reflux disease without esophagitis; I10 Essential (primary) hypertension; M19.90 Unspecified osteoarthritis, unspecified site; F32.9 Major depressive disorder, single episode, unspecified; F41.9 Anxiety disorder, unspecified; F41.0 Panic disorder [episodic paroxysmal anxiety]; F17.200 Nicotine dependence, unspecified, uncomplicated; Z79.51 Long term (current) use of inhaled steroids; Z79.899 Other long term (current) drug therapy; Z88.0 Allergy status to penicillin; Z88.5 Allergy status to narcotic agent; Z91.041 Radiographic dye allergy status; Z91.048 Other nonmedicinal substance allergy status
CPT/HCPCS: 36415; 94640; 93005; 83880; 80053; 82550; 82553; 83735; 84484; 85025; 85610; 85730; 81003; 87040; 71020; 74020; 99285; 96374; 96361 ×3; J2930

== ENCOUNTER 2017-09-23 15:27 | Inpatient (IN) | payer MEDICARE ==
[2017-09-23] MEDS ORDERED: SODIUM CHLORIDE 0.9% 500 ML IV STA (15:59)
[2017-09-23] MEDS ORDERED: cefTRIAXone IN SWFI 1,000 MG/10 ML SYRINGE IVP STA (15:59)
[2017-09-23] MEDS ORDERED: KETOROLAC 60 MG/2 ML VIAL IVP STA (16:00)
[2017-09-23] MEDS ORDERED: IPRATROPIUM-ALBUTEROL 3 ML NEB INHALATION STA (16:00)
--- NOTE | 2017-09-23 16:11 | ED ---
General Adult HPI - General Chief complaint: Shortness of Breath Stated complaint: SOB Time Seen by Provider: 09/23/17 15:35 Source: patient, RN notes reviewed Mode of arrival: ambulatory Limitations: no limitations - History of Present Illness Initial comments: This is a 62-year-old female who presents to the emergency department complaining of difficulty breathing over the last 3 days. Patient states she's been put on some antibiotics by her primary medical care doctor. Patient states that symptoms are worsening. Patient states she still coughing still short of breath and now having some pain in her left mid back. Patient states she's also had a fever of 103 for 2 days but that has been broken at home by herself. Patient denies any chest pain. Patient denies any palpitations. Patient denies abdominal pain patient denies nausea vomiting or diarrhea. - Related Data Home Medications Medication Instructions Recorded Confirmed Albuterol Sulfate [Proair Hfa] 2 puff INHALATION RT-Q6H PRN 09/13/13 09/23/17 Escitalopram [Lexapro] 20 mg PO HS 09/13/13 09/23/17 Fluticasone Propionate [Flonase] 1 spray EA NOSTRIL DAILY PRN 09/13/13 09/23/17 Fluticasone/Salmeterol [Advair 1 puff INHALATION RT-BID 09/13/13 09/23/17 250-50 Diskus] clonazePAM [KlonoPIN] 1 mg PO TID 09/13/13 09/23/17 Ranitidine HCl [Zantac] 150 mg PO W/SUPPER 04/21/15 09/23/17 Cetirizine HCl [Zyrtec] 10 mg PO QAM 05/11/16 09/23/17 Albuterol Nebulized [Ventolin 2.5 mg INHALATION RT-QID PRN 07/12/16 09/23/17 Nebulized] Atenolol [Tenormin] 12.5 mg PO QAM 07/12/16 09/23/17 ALPRAZolam [Xanax] 0.5 mg PO DAILY PRN 12/10/16 09/23/17 HYDROcodone/APAP 7.5-325MG [[place] 1 tab PO TID PRN 12/10/16 09/23/17 7.5-325] Montelukast [Singulair] 10 mg PO HS 12/10/16 09/23/17 Umeclidinium [place] [Incruse 1 puff INHALATION RT-HS 12/10/16 09/23/17 Ellipta] Promethazine 6.25MG/5Ml [Phenergan 5 ml PO Q6H PRN 09/23/17 09/23/17 Syrup] Sulfamethox-Tmp 800-160Mg [Bactrim 1 tab PO Q12HR 09/23/17 09/23/17 DS 800-160 mg] guaiFENesin [Mucinex] 1,200 mg PO Q12H PRN 09/23/17 09/23/17 Allergies Allergy/AdvReac Type Severity Reaction Status Date / Time codeine Allergy Anaphylaxis Verified 09/23/17 15:53 Iodinated Contrast- Oral and Allergy Anaphylaxis Verified 09/23/17 15:53 IV Dye [Iodinated Contrast Media - IV Dye] mold Allergy Anaphylaxis Verified 09/23/17 15:53 Penicillins Allergy Anaphylaxis Verified 09/23/17 15:53 morphine AdvReac Hallucinati Verified 09/23/17 15:53 ons Review of Systems ROS Statement: Those systems with pertinent positive or pertinent negative responses have been documented in the HPI. ROS Other: All systems not noted in ROS Statement are negative. Past Medical History Past Medical History: Asthma, COPD, GERD/Reflux, Hypertension, Osteoarthritis ( OA), Pneumonia, Respiratory Disorder, Rheumatoid Arthritis (RA), Skin Disorder Additional Past Medical History / Comment(s): BULLOUS EMPHYSEMA, end stage COPD uses O2 at 3L/NC continuous, arthritis-multiple joints, current antibiotics for "chest cold", abscess tooth, seizures as child, hiatal hernia, diarrhea, gallstones, kidney stones, eczema, History of Any Multi-Drug Resistant Organisms: None Reported Past Surgical History: Adenoidectomy, Tonsillectomy, Tubal Ligation Additional Past Surgical History / Comment(s): THORACOTOMY TO REMOVE BENIGN MASS NEAR RT LUNG, ESWLs, EGD/colonoscopy, laparoscopic surgery for bladder polyps Past Anesthesia/Blood Transfusion Reactions: Family History of Problems w/ Anesthesia, Family Hisory of Malignant Hyperthermia Additional Past Anesthesia/Blood Transfusion Reaction / Comment(s): The patients son carries the gene for malignant hyperthermia but has not had a reaction to anesthesia. Pt has not had reaction to anesthesia or been tested herself. Past Psychological History: Anxiety, Depression, Panic Disorder Smoking Status: Current every day smoker Past Alcohol Use History: None Reported Past Drug Use History: None Reported - Past Family History Son(s) Additional Family Medical History / Comment(s): carries the gene for malignant hyperthermia. He had had anethesia without and reaction Father Family Medical History: Coronary Artery Disease (CAD), Myocardial Infarction ([place] ), Renal Disease Additional Family Medical History / Comment(s): Father of a [place] at the age of 59yrs. Mother Family Medical History: Cancer Additional Family Medical History / Comment(s): Mother of leukemia at the age of 57yrs. Brother(s) Family Medical History: Cancer Additional Family Medical History / Comment(s): Brother of bladder cancer at the age of 50yrs. General Exam - General Exam Comments Initial Comments: GENERAL: Patient is well-developed and well-nourished. Patient is nontoxic and well- hydrated and is in mild distress. ENT: Neck is soft and supple. No significant lymphadenopathy is noted. Oropharynx is clear. Moist mucous membranes. Neck has full range of motion without eliciting any pain. EYES: The sclera were anicteric and conjunctiva were pink and moist. Extraocular movements were intact and pupils were equal round and reactive to light. Eyelids were unremarkable. PULMONARY: Decreased breath sounds CARDIOVASCULAR: There is a regular rate and rhythm without any murmurs gallops or rubs. ABDOMEN: Soft and nontender with normal bowel sounds. No palpable organomegaly was noted. There is no palpable pulsatile mass. SKIN: Skin is clear with no lesions or rashes and otherwise unremarkable. NEUROLOGIC: Patient is alert and oriented x3. Cranial nerves II through XII are grossly intact. Motor and sensory are also intact. Normal speech, volume and content. Symmetrical smile. MUSCULOSKELETAL: Normal extremities with adequate strength and full range of motion. No lower extremity swelling or edema. No calf tenderness. LYMPHATICS: No significant lymphadenopathy is noted PSYCHIATRIC: Normal psychiatric evaluation. Normal interpersonal interactions appears functionally intact in deals appropriately with others. No signs of depression. No signs of anxiety. Limitations: no limitations Course Vital Signs 09/23/17 09/23/17 15:38 16:00 Temperature 98.9 F Pulse Rate 95 94 Respiratory 28 H 26 H Rate Blood Pressure 130/68 94/61 O2 Sat by Pulse 98 98 Oximetry Medical Decision Making - Medical Decision Making EKG shows normal sinus rhythm at 90 bpm OK interval is on a 36 QRS 72 QT interval 380 QTC is 464. Patient EKG shows no ST segment elevation or depression or T wave abnormalities are noted. Chest x-ray shows a left lower lobe pneumonia. I started the patient on Levaquin. - Lab Data Result diagrams: 09/23/17 15:45 09/23/17 15:45 Lab Results 09/23/17 09/23/17 09/23/17 Range/Units 15:45 15:45 15:45 WBC 10.7 H (3.8-10.6) k/uL RBC 3.69 L (3.80-5.40) m/uL Hgb 10.7 L (11.4-16.0) gm/dL Hct 33.2 L (34.0-46.0) % MCV 89.9 (80.0-100.0) fL MCH 29.0 (25.0-35.0) pg MCHC 32.2 (31.0-37.0) g/dL RDW 13.1 (11.5-15.5) % Plt Count 344 (150-450) k/uL Neutrophils % 61 % Lymphocytes % 28 % Monocytes % 7 % Eosinophils % 2 % Basophils % 0 % Neutrophils # 6.5 (1.3-7.7) k/uL Lymphocytes # 3.0 (1.0-4.8) k/uL Monocytes # 0.7 (0-1.0) k/uL Eosinophils # 0.2 (0-0.7) k/uL Basophils # 0.0 (0-0.2) k/uL PT (9.0-12.0) sec INR (<1.2) APTT (22.0-30.0) sec D-Dimer (<0.60) mg/L FEU Sodium 142 (137-145) mmol/L Potassium 3.6 (3.5-5.1) mmol/L Chloride 105 (98-107) mmol/L Carbon Dioxide 28 (22-30) mmol/L Anion Gap 9 mmol/L BUN 8 (7-17) mg/dL Creatinine 0.50 L (0.52-1.04) mg/dL Est GFR (CKD-EPI)AfAm >90 (>60 ml/min/1.73 sqM) Est GFR (CKD-EPI)NonAf >90 (>60 ml/min/1.73 sqM) Glucose 90 (74-99) mg/dL Plasma Lactic Acid Juan F (0.7-2.0) mmol/L Calcium 8.3 L (8.4-10.2) mg/dL Magnesium 1.6 (1.6-2.3) mg/dL Total Bilirubin 0.2 (0.2-1.3) mg/dL AST 16 (14-36) U/L ALT 26 (9-52) U/L Alkaline Phosphatase 66 (38-126) U/L Total Creatine Kinase 44 (30-135) U/L CK-MB (CK-2) 1.2 (0.0-2.4) ng/mL CK-MB (CK-2) Rel Index 2.7 Troponin I <0.012 (0.000-0.034) ng/mL Total Protein 5.3 L (6.3-8.2) g/dL Albumin 3.0 L (3.5-5.0) g/dL 09/23/17 09/23/17 Range/Units 15:45 15:45 WBC (3.8-10.6) k/uL RBC (3.80-5.40) m/uL Hgb (11.4-16.0) gm/dL Hct (34.0-46.0) % MCV (80.0-100.0) fL MCH (25.0-35.0) pg MCHC (31.0-37.0) g/dL RDW (11.5-15.5) % Plt Count (150-450) k/uL Neutrophils % % Lymphocytes % % Monocytes % % Eosinophils % % Basophils % % Neutrophils # (1.3-7.7) k/uL Lymphocytes # (1.0-4.8) k/uL Monocytes # (0-1.0) k/uL Eosinophils # (0-0.7) k/uL Basophils # (0-0.2) k/uL PT 10.6 (9.0-12.0) sec INR 1.1 (<1.2) APTT 24.6 (22.0-30.0) sec D-Dimer 0.58 (<0.60) mg/L FEU Sodium (137-145) mmol/L Potassium (3.5-5.1) mmol/L Chloride (98-107) mmol/L Carbon Dioxide (22-30) mmol/L Anion Gap mmol/L BUN (7-17) mg/dL Creatinine (0.52-1.04) mg/dL Est GFR (CKD-EPI)AfAm (>60 ml/min/1.73 sqM) Est GFR (CKD-EPI)NonAf (>60 ml/min/1.73 sqM) Glucose (74-99) mg/dL Plasma Lactic Acid Juan F 1.1 (0.7-2.0) mmol/L Calcium (8.4-10.2) mg/dL Magnesium (1.6-2.3) mg/dL Total Bilirubin (0.2-1.3) mg/dL AST (14-36) U/L ALT (9-52) U/L Alkaline Phosphatase (38-126) U/L Total Creatine Kinase (30-135) U/L CK-MB (CK-2) (0.0-2.4) ng/mL CK-MB (CK-2) Rel Index Troponin I (0.000-0.034) ng/mL Total Protein (6.3-8.2) g/dL Albumin (3.5-5.0) g/dL Disposition Clinical Impression: Pneumonia Disposition: ADMITTED IP TO THIS HOSP Referrals: Chris Aguilar MD [Primary Care Provider] - 1-2 days Time of Disposition: 16:59
[2017-09-23] MEDS ORDERED: LEVOFLOXACIN 750MG-D5W PMX 750 MG in DEXTROSE/WATER 1 150ML.BAG IVPB STA (16:16)
[2017-09-23 16:22] LABS: Basophils % (A) 0 %; Eosinophils # (A) 0.2 k/uL (0-0.7); Eosinophils % (A) 2 %; HCT 33.2 % (34.0-46.0); HGB 10.7 gm/dL (11.4-16.0); Lymphocytes % (A) 28 %; MCHC 32.2 g/dL (31.0-37.0); MCV 89.9 fL (80.0-100.0); Mean Platelet Volume 6.8; Monocytes # (A) 0.7 k/uL (0-1.0); Monocytes % (A) 7 %; Neutrophils # (A) 6.5 k/uL (1.3-7.7); Neutrophils % (A) 61 %; Platelet Count 344 k/uL (150-450); RBC 3.69 m/uL (3.80-5.40); RDW 13.1 % (11.5-15.5); WBC 10.7 k/uL (3.8-10.6)
[2017-09-23 16:34] LABS: ALT 26 U/L (9-52); AST 16 U/L (14-36); Alkaline Phosphatase 66 U/L (38-126); Anion Gap 9 mmol/L; Blood Urea Nitrogen 8 mg/dL (7-17); Calcium 8.3 mg/dL (8.4-10.2); Carbon Dioxide 28 mmol/L (22-30); Chloride 105 mmol/L (98-107); Glucose 90 mg/dL (74-99); Magnesium 1.6 mg/dL (1.6-2.3); Potassium 3.6 mmol/L (3.5-5.1); Sodium 142 mmol/L (137-145); Total Bilirubin 0.2 mg/dL (0.2-1.3); Total Protein 5.3 g/dL (6.3-8.2)
[2017-09-23 16:38] LABS: D-Dimer 0.58 mg/L FEU (<0.60); INR 1.1 (<1.2); Partial Thromboplastin Time 24.6 sec (22.0-30.0); Prothrombin Time 10.6 sec (9.0-12.0)
[2017-09-23 16:44] LABS: Creatine Kinase 44 U/L (30-135)
--- NOTE | 2017-09-23 16:54 | XR ---
EXAMINATION TYPE: XR chest 2V DATE OF EXAM: 09/23/2017 COMPARISON: Prior chest x-ray 01/19/2017 HISTORY: Difficulty breathing and left chest pain TECHNIQUE: Frontal and lateral views of the chest are obtained. FINDINGS: Question airspace disease at the left costophrenic angle. There is no pleural effusion or p neumothorax seen. The cardiac silhouette size is stable. Prominent lung volumes suggest underlying COPD. There are overlying cardiac leads. The osseous structures are intact. IMPRESSION: Findings suggest left lower lobe pneumonia. Follow-up is recommended.
[2017-09-23 16:57] LABS: Creatine Kinase MB 1.2 ng/mL (0.0-2.4); Troponin I <0.012 ng/mL (0.000-0.034)
[2017-09-23] MEDS ORDERED: PNEUMONIA PROTOCOL UTILIZED 1 EACH MISC PO PRN (17:01)
[2017-09-23] MEDS ORDERED: ALPRAZolam 0.5 MG TAB PO PRN (22:18)
[2017-09-23] MEDS: clonazePAM 1 MG TAB PO SCH (23:11)
[2017-09-23] MEDS: ESCITALOPRAM 20 MG TAB PO SCH (23:11)
[2017-09-23] MEDS: HYDROcodone/APAP 7.5-325MG 1 EACH TAB PO PRN (23:12)
[2017-09-23] MEDS: MONTELUKAST 10 MG TAB PO SCH (23:12)
[2017-09-23] MEDS: FAMOTIDINE 20 MG TAB PO SCH (23:12)
[2017-09-24] MEDS: ALBUTEROL NEBULIZED 2.5 MG/3 ML INHALATION PRN ×6 (00:02→19:45)
[2017-09-24] MEDS: HYDROcodone/APAP 7.5-325MG 1 EACH TAB PO PRN ×2 (06:25→15:51)
--- NOTE | 2017-09-24 08:32 | XR ---
EXAMINATION TYPE: XR chest 2V DATE OF EXAM: 09/24/2017 COMPARISON: Prior chest x-ray 09/23/2017 HISTORY: Pneumonia TECHNIQUE: Frontal and lateral views of the chest are obtained. FINDINGS: Suspect some improvement in aeration as compared to prior exam. No other interval change. IMPRESSION: Improved aeration
[2017-09-24] MEDS: clonazePAM 1 MG TAB PO SCH ×2 (09:24→15:51)
[2017-09-24] MEDS: ATENOLOL 25 MG TAB PO SCH (09:24)
[2017-09-24] MEDS ORDERED: PROMETHAZINE 6.25MG/5ML 147.5 MG/118 ML BOTTLE PO PRN (10:46)
[2017-09-24] MEDS: guaiFENesin 600 MG TABLET.ER PO PRN (13:07)
[2017-09-24] MEDS: FAMOTIDINE 20 MG TAB PO SCH (15:51)
[2017-09-24] MEDS: LEVOFLOXACIN 750MG-D5W PMX 750 MG in DEXTROSE/WATER 1 150ML.BAG IVPB SCH (15:52)
[2017-09-24] MEDS ORDERED: LORATADINE 10 MG TAB PO STA (16:03)
[2017-09-24] MEDS: IPRATROPIUM 0.5 MG/2.5 ML NEBU INHALATION SCH (19:55)
[2017-09-24] MEDS: FLUTICASONE 50MCG/SPRAY NASAL 16GM EA NOSTRIL PRN (20:19)
[2017-09-24] MEDS: ESCITALOPRAM 20 MG TAB PO SCH (20:20)
[2017-09-24] MEDS: MONTELUKAST 10 MG TAB PO SCH (20:20)
[2017-09-25] MEDS: HYDROcodone/APAP 7.5-325MG 1 EACH TAB PO PRN ×3 (00:06→16:40)
[2017-09-25] MEDS: clonazePAM 1 MG TAB PO SCH ×3 (00:07→16:39)
--- NOTE | 2017-09-25 05:46 | HP ---
HISTORY AND PHYSICAL CHIEF COMPLAINT: A 62-year-old white female with shortness of breath. HISTORY OF PRESENT ILLNESS: This 62-year-old white female failed outpatient treatment with antibiotics and updraft treatments and brought to the hospital due to increasing cough and shortness of breath, failure of outpatient antibiotics. She had left midback pain. She had a fever of 103 degrees Fahrenheit two days prior to admission. Chest x-ray showed left lower lobe pneumonia, was admitted, placed on IV Levaquin. No nausea, vomiting, diarrhea. No chest pain, but just heaviness. HOME MEDICINES: 1. Advair 250/50 one puff b.i.d. 2. Flonase 1 nostril daily. 3. Lexapro 20 mg daily. 4. ProAir HFA 2 puffs q.4 hours p.r.n. 5. Klonopin 1 mg t.i.d. 6. Zyrtec 10 mg daily. 7. Zantac 150 b.i.d. 8. Tenormin 12.5 q.a.m. 9. Ventolin HFA 2 puffs q.i.d. 10.Singulair 10 mg daily. 11.Bactrim Double Strength 1 b.i.d. 12.Mucinex daily. ALLERGIES: CODEINE, IODINE, PENICILLIN, MORPHINE. REVIEW OF SYSTEMS: Fourteen point review of systems negative except for mentioned in HPI. PAST MEDICAL HISTORY: Asthma, COPD, GERD, hypertension, osteoarthritis, pneumonia left lower lobe, rheumatoid arthritis, skin disorder, 3 L oxygen. SURGICAL HISTORY: Adenoidectomy, tonsillectomy, tubal ligation, EGD, colonoscopy, thoracotomy. malignant hyperthermia, anxiety, depression, panic disorder. FAMILY HISTORY: Sons gene for malignant hyperthermia. Father coronary disease, myocardial infarction, renal disease. Brother with bladder cancer. Mother with leukemia. PHYSICAL EXAMINATION: Respiratory rate 20 to 25, temp 99. She is thin cachectic. OPHTHALMOLOGIC: Pupils equal, round, reactive to light and accommodation. INTEGUMENT: Skin turgor is normal. No rash or excoriation present. GI: Soft, nontender. LUNGS: Scattered rhonchi and wheeze. HEMATOLOGY: Negative Homans. CARDIOVASCULAR: S1, S2. Some tachycardia. Temp 98.9, pulse 94 to 95. EKG is sinus rhythm. Chest x-ray left lower lobe pneumonia. ASSESSMENT: 1. Acute hypoxemic respiratory distress. 2. Left lower lobe pneumonia, failed outpatient treatment. 3. She has a history of allergic asthma. Get Pulmonary consult. Continue with updraft treatments, IV Levaquin. KARTHIKEYAN / DORINDA: [id number] /
[2017-09-25] MEDS: IPRATROPIUM 0.5 MG/2.5 ML NEBU INHALATION SCH ×4 (07:41→18:55)
[2017-09-25] MEDS: ATENOLOL 25 MG TAB PO SCH (07:51)
[2017-09-25] MEDS: LORATADINE 10 MG TAB PO SCH (07:52)
[2017-09-25] MEDS: ALBUTEROL NEBULIZED 2.5 MG/3 ML INHALATION PRN (11:10)
--- NOTE | 2017-09-25 13:01 | P.CNPUL ---
History of Present Illness Consult date: 09/25/17 Reason for consult: dyspnea, cough, pneumonia Chief complaint: Progressive increased shortness of breath for last 2-3 days History of present illness: 62-year-old female with end-stage lung disease and severe COPD emphysema and chronic hypoxic respiratory failure on home oxygen this patient presented into the hospital was spiking fever of 103, workup revealed a fever to 103 along with left lower lobe pneumonia patient has been started on broad-spectrum antibiotics and admitted into the hospital him a on specific questioning patient denies any chest pain or radiation of pain denies any hemoptysis no seizure activity loss of consciousness have braces no bowel or bladder dysfunction Review of Systems All systems: negative Past Medical History Past Medical History: Asthma, COPD, GERD/Reflux, Hypertension, Osteoarthritis ( OA), Pneumonia, Respiratory Disorder, Rheumatoid Arthritis (RA), Skin Disorder Additional Past Medical History / Comment(s): BULLOUS EMPHYSEMA, end stage COPD uses O2 at 3L/NC continuous, arthritis-multiple joints, current antibiotics for "chest cold", abscess tooth, seizures as child, hiatal hernia, diarrhea, gallstones, kidney stones, eczema, History of Any Multi-Drug Resistant Organisms: None Reported Past Surgical History: Adenoidectomy, Tonsillectomy, Tubal Ligation Additional Past Surgical History / Comment(s): THORACOTOMY TO REMOVE BENIGN MASS NEAR RT LUNG, ESWLs, EGD/colonoscopy, laparoscopic surgery for bladder polyps Past Anesthesia/Blood Transfusion Reactions: Family History of Problems w/ Anesthesia, Family Hisory of Malignant Hyperthermia Additional Past Anesthesia/Blood Transfusion Reaction / Comment(s): The patients son carries the gene for malignant hyperthermia but has not had a reaction to anesthesia. Pt has not had reaction to anesthesia or been tested herself. Past Psychological History: Anxiety, Depression, Panic Disorder Additional Psychological History / Comment(s): . Smoking Status: Current every day smoker Past Alcohol Use History: None Reported Additional Past Alcohol Use History / Comment(s): Pt started smoking in 1974. She is down to 4-6 cigarettes a day. Past Drug Use History: None Reported Additional Drug Use History / Comment(s): denies - Past Family History Son(s) Additional Family Medical History / Comment(s): carries the gene for malignant hyperthermia. He had had anethesia without and reaction Father Family Medical History: Coronary Artery Disease (CAD), Myocardial Infarction (DC ), Renal Disease Additional Family Medical History / Comment(s): Father of a DC at the age of 59yrs. Mother Family Medical History: Cancer Additional Family Medical History / Comment(s): Mother of leukemia at the age of 57yrs. Brother(s) Family Medical History: Cancer Additional Family Medical History / Comment(s): Brother of bladder cancer at the age of 50yrs. Medications and Allergies Home Medications Medication Instructions Recorded Confirmed Type Albuterol Sulfate [Proair Hfa] 2 puff INHALATION RT-Q6H PRN 09/13/13 09/23/17 History Escitalopram [Lexapro] 20 mg PO HS 09/13/13 09/23/17 History Fluticasone Propionate [Flonase] 1 spray EA NOSTRIL DAILY PRN 09/13/13 09/23/17 History Fluticasone/Salmeterol [Advair 1 puff INHALATION RT-BID 09/13/13 09/23/17 History 250-50 Diskus] clonazePAM [KlonoPIN] 1 mg PO TID 09/13/13 09/23/17 History Ranitidine HCl [Zantac] 150 mg PO W/SUPPER 04/21/15 09/23/17 History Cetirizine HCl [Zyrtec] 10 mg PO QAM 05/11/16 09/23/17 History Albuterol Nebulized [Ventolin 2.5 mg INHALATION RT-QID PRN 07/12/16 09/23/17 History Nebulized] Atenolol [Tenormin] 12.5 mg PO QAM 07/12/16 09/23/17 History ALPRAZolam [Xanax] 0.5 mg PO DAILY PRN 12/10/16 09/23/17 History HYDROcodone/APAP 7.5-325MG [[place] 1 tab PO TID PRN 12/10/16 09/23/17 History 7.5-325] Montelukast [Singulair] 10 mg PO HS 12/10/16 09/23/17 History Umeclidinium [place] [Incruse 1 puff INHALATION RT-HS 12/10/16 09/23/17 History Ellipta] Promethazine 6.25MG/5Ml [Phenergan 5 ml PO Q6H PRN 09/23/17 09/23/17 History Syrup] Sulfamethox-Tmp 800-160Mg [Bactrim 1 tab PO Q12HR 09/23/17 09/23/17 History DS 800-160 mg] guaiFENesin [Mucinex] 1,200 mg PO Q12H PRN 09/23/17 09/23/17 History Allergies Allergy/AdvReac Type Severity Reaction Status Date / Time codeine Allergy Anaphylaxis Verified 09/23/17 15:53 Iodinated Contrast- Oral and Allergy Anaphylaxis Verified 09/23/17 15:53 IV Dye [Iodinated Contrast Media - IV Dye] mold Allergy Anaphylaxis Verified 09/23/17 15:53 Penicillins Allergy Anaphylaxis Verified 09/23/17 15:53 morphine AdvReac Hallucinati Verified 09/23/17 15:53 ons Physical Exam Vitals: Vital Signs Temp Pulse Pulse Resp BP Pulse Ox 09/25/17 11:21 82 09/25/17 11:10 82 09/25/17 06:10 98.1 F 80 16 113/72 100 09/24/17 23:00 97.8 F 90 19 139/77 97 09/24/17 19:59 84 09/24/17 19:47 82 09/24/17 15:28 84 09/24/17 15:19 82 09/24/17 15:00 97.0 F L 81 16 116/73 97 Intake and Output 09/24/17 09/25/17 09/25/17 22:59 06:59 14:59 Other: # Voids 1 1 GENERAL: Patient is well-developed and well-nourished. Patient is nontoxic and well- hydrated and is in mild distress. ENT: Neck is soft and supple. No significant lymphadenopathy is noted. Oropharynx is clear. Moist mucous membranes. Neck has full range of motion without eliciting any pain. EYES: The sclera were anicteric and conjunctiva were pink and moist. Extraocular movements were intact and pupils were equal round and reactive to light. Eyelids were unremarkable. PULMONARY: Decreased breath sounds CARDIOVASCULAR: There is a regular rate and rhythm without any murmurs gallops or rubs. ABDOMEN: Soft and nontender with normal bowel sounds. No palpable organomegaly was noted. There is no palpable pulsatile mass. SKIN: Skin is clear with no lesions or rashes and otherwise unremarkable. NEUROLOGIC: Patient is alert and oriented x3. Cranial nerves II through XII are grossly intact. Motor and sensory are also intact. Normal speech, volume and content. Symmetrical smile. MUSCULOSKELETAL: Normal extremities with adequate strength and full range of motion. No lower extremity swelling or edema. No calf tenderness. LYMPHATICS: No significant lymphadenopathy is noted PSYCHIATRIC: Normal psychiatric evaluation. Normal interpersonal interactions appears functionally intact in deals appropriately with others. No signs of depression. No signs of anxiety. Limitations: no limitation Results - Laboratory Findings CBC and BMP: 09/23/17 15:45 09/23/17 15:45 PT/INR, D-dimer PT 10.6 sec (9.0-12.0) 09/23/17 15:45 INR 1.1 (<1.2) 09/23/17 15:45 D-Dimer 0.58 mg/L FEU (<0.60) 09/23/17 15:45 Abnormal lab findings: Abnormal Labs 09/23/17 09/23/17 15:45 15:45 WBC 10.7 H RBC 3.69 L Hgb 10.7 L Hct 33.2 L Creatinine 0.50 L Calcium 8.3 L Total Protein 5.3 L Albumin 3.0 L - Diagnostic Findings Chest x-ray: report reviewed, image reviewed (As noted above) Assessment and Plan Assessment: Left-sided pneumonia Acute on chronic hypoxic respirator failure Chronic persistent asthma of severe category Mood disorder depression Plan: Gentle rehydration Breathing treatments IV steroid Broad-spectrum antibiotics Deep breathing exercises incentive spirometry Sputum for Gram stain and culture if able to obtain Time with Patient: Greater than 30
[2017-09-25] MEDS: LEVOFLOXACIN 750MG-D5W PMX 750 MG in DEXTROSE/WATER 1 150ML.BAG IVPB SCH (16:39)
[2017-09-25] MEDS: FAMOTIDINE 20 MG TAB PO SCH (16:42)
--- NOTE | 2017-09-25 19:56 | PN ---
PROGRESS NOTE SUBJECTIVE: This patient is a 62-year-old white female with left lower lobe pneumonia, COPD exacerbation. She remains on Atrovent updrafts and albuterol updrafts q.i.d. and IV Levaquin. IV steroids will be continued. Follow up in the next 24 to 48 hours. Continue on current treatments, fluids, etc. Lungs show scattered wheeze and rhonchi x4. HEMATOLOGY: Negative Homans. CARDIOVASCULAR: S1, S2. ASSESSMENT: 1. Chronic obstructive pulmonary disease exacerbation. 2. Left lower lobe pneumonia. 3. Dehydration. 4. Anemia. 5. Hypoalbuminemia. 6. Allergic asthma. Follow up in the next 24 to 48 hours. MMODL / IJN: [id number] /
[2017-09-25] MEDS: ESCITALOPRAM 20 MG TAB PO SCH (21:12)
[2017-09-25] MEDS: MONTELUKAST 10 MG TAB PO SCH (21:12)
[2017-09-25] MEDS: FLUTICASONE 50MCG/SPRAY NASAL 16GM EA NOSTRIL PRN (21:13)
[2017-09-26] MEDS: clonazePAM 1 MG TAB PO SCH ×3 (00:15→17:58)
[2017-09-26] MEDS: HYDROcodone/APAP 7.5-325MG 1 EACH TAB PO PRN ×2 (00:15→08:16)
[2017-09-26] MEDS: IPRATROPIUM 0.5 MG/2.5 ML NEBU INHALATION SCH ×4 (07:37→19:52)
[2017-09-26] MEDS: ALBUTEROL NEBULIZED 2.5 MG/3 ML INHALATION PRN ×3 (07:38→19:50)
[2017-09-26] MEDS: ATENOLOL 12.5 MG TAB PO SCH (08:16)
[2017-09-26] MEDS: LORATADINE 10 MG TAB PO SCH (08:17)
[2017-09-26 11:09] VITALS: RESP 16
--- NOTE | 2017-09-26 12:09 | PN ---
PROGRESS NOTE DATE OF SERVICE: 09/26/2017 She has been hemodynamically stable. She is less short of breath. She has an occasional cough. PHYSICAL EXAMINATION: Respiratory rate is 24, pulse rate 87, temperature 97.9, blood pressure 130/84, O2 SAT on 3 L by nasal cannula is 96%. HEENT is unremarkable. Chest reveals decreased breath sounds. Prolonged expiration. Cardiovascular system reveals an S1, S2. Abdomen is soft. There is no edema, white count is 10.7, hemoglobin of 10.7, sodium 142, potassium 3.6, chloride 105, bicarb 28, BUN 8, creatinine of 0.5. IMPRESSION: At this time is: 1. Pneumonia on the left side. 2. Acute on chronic respiratory failure. 3. Chronic persistent asthma. 4. Depression. Continue antibiotics, bronchodilators. Add inhaled steroids to her regimen. We will follow her closely during her hospital stay. KARTHIKEYAN / DORINDA: [id number] /
[2017-09-26] MEDS: guaiFENesin 600 MG TABLET.ER PO PRN (12:26)
[2017-09-26 15:08] VITALS: BMI 18.9
[2017-09-26] MEDS ORDERED: FAMOTIDINE 20 MG TAB ONE (16:00)
[2017-09-26] MEDS ORDERED: clonazePAM 1 MG TAB ONE (16:00)
[2017-09-26] MEDS ORDERED: HYDROcodone/APAP 7.5-325MG 1 EACH TAB ONE (16:00)
[2017-09-26] MEDS ORDERED: LEVOFLOXACIN 750 MG TAB ONE (16:00)
[2017-09-26] MEDS: FAMOTIDINE 20 MG TAB PO SCH (17:58)
[2017-09-26] MEDS: LEVOFLOXACIN 750 MG TAB PO SCH (17:58)
[2017-09-26] MEDS: BUDESONIDE 0.5 MG/2 ML NEBU INHALATION SCH (19:52)
[2017-09-26] MEDS: MONTELUKAST 10 MG TAB PO SCH (22:32)
[2017-09-26] MEDS: ESCITALOPRAM 20 MG TAB PO SCH (22:32)
[2017-09-27] MEDS: HYDROcodone/APAP 7.5-325MG 1 EACH TAB PO PRN ×4 (00:04→23:49)
[2017-09-27] MEDS: clonazePAM 1 MG TAB PO SCH ×4 (00:05→23:49)
[2017-09-27] MEDS: ATENOLOL 12.5 MG TAB PO SCH (08:08)
[2017-09-27] MEDS: LORATADINE 10 MG TAB PO SCH (08:08)
[2017-09-27] MEDS: guaiFENesin 600 MG TABLET.ER PO PRN (08:12)
[2017-09-27] MEDS: ALBUTEROL NEBULIZED 2.5 MG/3 ML INHALATION PRN ×3 (08:23→19:32)
[2017-09-27] MEDS: IPRATROPIUM 0.5 MG/2.5 ML NEBU INHALATION SCH ×4 (08:23→19:35)
[2017-09-27] MEDS: BUDESONIDE 0.5 MG/2 ML NEBU INHALATION SCH ×2 (08:23→19:35)
[2017-09-27] MEDS: FAMOTIDINE 20 MG TAB PO SCH (15:56)
[2017-09-27] MEDS: LEVOFLOXACIN 750 MG TAB PO SCH (15:56)
[2017-09-27] MEDS: FLUTICASONE 50MCG/SPRAY NASAL 16GM EA NOSTRIL PRN (15:58)
--- NOTE | 2017-09-27 20:07 | PN ---
PROGRESS NOTE DATE OF SERVICE: 09/27/17 SUBJECTIVE: 62-year-old white female with COPD exacerbation, left lower lobe pneumonia. States she is slowly improving. She was started on updraft with steroids today b.i.d. She will be given thrush medicine for her throat thrush. CARDIOVASCULAR: S1, S2. LUNGS: Scattered rhonchi and wheeze x4. Respiratory 24, pulse 87, 3 L 96% oxygen level. HEENT: Normocephalic, atraumatic. PSYCH: Fair mood and affect. GI: Soft. HEMATOLOGY: Negative Homans. ASSESSMENT: 1. Community-acquired pneumonia left lower lobe. 2. Acute on chronic respiratory failure. 3. Chronic persistent asthma. 4. Depression. Add steroids, antibiotics, bronchodilators. Continue current treatment in the hospital. Possible discharge next 24-48 hours depending on patient's improvement in her respiratory status. She is continued on Levaquin 750 mg q.24 hours. Possibly discharge home in the next 24 to 48 hours. MMODL / IJN: [id number] /
[2017-09-27] MEDS: MONTELUKAST 10 MG TAB PO SCH (20:35)
[2017-09-27] MEDS: ESCITALOPRAM 20 MG TAB PO SCH (20:35)
[2017-09-27] MEDS: NYSTATIN 100,000 UNIT/ML SUSP 500,000 UNIT/5 ML CUP PO SCH (20:35)
[2017-09-28 06:10] VITALS: BP 102/65; PULSE 85; TEMP 97.9
[2017-09-28] MEDS: BUDESONIDE 0.5 MG/2 ML NEBU INHALATION SCH (07:20)
[2017-09-28] MEDS: IPRATROPIUM 0.5 MG/2.5 ML NEBU INHALATION SCH (07:21)
[2017-09-28] MEDS: clonazePAM 1 MG TAB PO SCH (08:20)
[2017-09-28] MEDS: NYSTATIN 100,000 UNIT/ML SUSP 500,000 UNIT/5 ML CUP PO SCH (08:20)
[2017-09-28] MEDS: LORATADINE 10 MG TAB PO SCH (08:20)
[2017-09-28] MEDS: ATENOLOL 12.5 MG TAB PO SCH (08:20)
[2017-09-28] MEDS: HYDROcodone/APAP 7.5-325MG 1 EACH TAB PO PRN (08:20)
--- NOTE | 2017-10-03 15:58 | CDI ---
Last Revision, February 2017 Documentation Clarification Form Date: 10/03/17 From: Anuradha Mejia Phone: If you have a question regarding this query, please contact Melba Buck at [phone] between 8am and 5pm. Admit Date: 09/23/2017 5:01:00 PM Patient Name: Shanelle Eubanks Visit Number: [id number] Discharge Date: 09/28/17 ATTENTION: The Clinical Documentation Specialists (CDI) and [facility] Coding Staff appreciate your assistance in clarifying documentation. Please respond to the clarification below the line at the bottom and electronically sign. The CDI & [facility] Coding staff will review the response and follow-up if needed. Please note: Queries are made part of the Legal Health Record. If you have any questions, please contact the author of this message via ITS. Dr. Chris Aguilar A diagnosis of anemia lacks specificity to accurately reflect your patients severity of condition and clarification is needed. History/Risk Factors: Patient was admitted for pneumonia and COPD exacerbation. Patient has a history of hypertension and chronic respiratory failure.. Clinical indicators: Decrease hgb and hct. Hemoglobin: 10.7 Hematocrit: 33.2 In order to capture the severity of condition, please clarify the type of anemia and etiology if known: Acute blood loss anemia Acute on chronic blood loss anemia Chronic blood loss anemia Iron deficiency anemia Drug induced anemia Nutritional anemia Unable to determine Other, please specify MTDD
--- NOTE | 2017-10-05 13:14 | CDI ---
Last Revision, February 2017 Documentation Clarification Form Date: 10/05/17 From: Anuradha Mejia Phone: If you have a question regarding this query, please contact Melba Buck at [phone] between 8am and 5pm. Admit Date: 09/23/2017 5:01:00 PM Patient Name: Shanelle Eubanks Visit Number: [id number] Discharge Date: 09/28/17 ATTENTION: The Clinical Documentation Specialists (CDI) and [facility] Coding Staff appreciate your assistance in clarifying documentation. Please respond to the clarification below the line at the bottom and electronically sign. The CDI & [facility] Coding staff will review the response and follow-up if needed. Please note: Queries are made part of the Legal Health Record. If you have any questions, please contact the author of this message via ITS. Dr. Chris Aguilar Thank you for signing your previous query. Please document a response before signing this query. A diagnosis of anemia lacks specificity to accurately reflect your patients severity of condition and clarification is needed. History/Risk Factors: Patient was admitted for pneumonia and COPD exacerbation. Patient has a history of hypertension and chronic respiratory failure.. Clinical indicators: Decrease hgb and hct. Hemoglobin: 10.7 Hematocrit: 33.2 In order to capture the severity of condition, please clarify the type of anemia and etiology if known: Acute blood loss anemia Acute on chronic blood loss anemia Chronic blood loss anemia Iron deficiency anemia Drug induced anemia Nutritional anemia Unable to determine Other, please specify MTDD
== END 2017-09-28 10:26 | disposition home or self-care (01) | DRG 193 ==
LOC: EC 15:27 → 4MS4W 17:01
PROVIDERS: ADMIT Family Medicine; ATTEND Family Medicine
DX: J18.9 Pneumonia, unspecified organism (principal); J96.21 Acute and chronic respiratory failure with hypoxia; B37.89 Other sites of candidiasis; E86.0 Dehydration; E88.09 Other disorders of plasma-protein metabolism, not elsewhere classified; F17.210 Nicotine dependence, cigarettes, uncomplicated; F32.9 Major depressive disorder, single episode, unspecified; F41.0 Panic disorder [episodic paroxysmal anxiety]; I10 Essential (primary) hypertension; K21.9 Gastro-esophageal reflux disease without esophagitis; M06.9 Rheumatoid arthritis, unspecified; J43.9 Emphysema, unspecified; J45.30 Mild persistent asthma, uncomplicated; M15.9 Polyosteoarthritis, unspecified; K44.9 Diaphragmatic hernia without obstruction or gangrene; L30.9 Dermatitis, unspecified; K80.20 Calculus of gallbladder without cholecystitis without obstruction; Z79.899 Other long term (current) drug therapy; Z91.041 Radiographic dye allergy status; Z88.5 Allergy status to narcotic agent; Z88.0 Allergy status to penicillin; Z91.048 Other nonmedicinal substance allergy status; Z99.81 Dependence on supplemental oxygen; Z87.01 Personal history of pneumonia (recurrent); Z98.51 Tubal ligation status; Z82.49 Family history of ischemic heart disease and other diseases of the circulatory system; Z80.6 Family history of leukemia; Z80.52 Family history of malignant neoplasm of bladder; Z84.1 Family history of disorders of kidney and ureter; D64.9 Anemia, unspecified
CPT/HCPCS: 36415; 71046; 80053; 82550; 82553; 83605; 83735; 84484; 85025; 85379; 85610; 85730; 87040; 87070; 87205; 93005; 94640; 94760; 96365; 96375; 99285

== ENCOUNTER 2018-04-01 02:43 | Observation (INO) | payer MEDICARE ==
[2018-04-01] MEDS ORDERED: SODIUM CHLORIDE 0.9% 500 ML 500 ML IV STA (03:15)
--- NOTE | 2018-04-01 03:30 | ED ---
Weakness HPI - General Chief complaint: Weakness Stated complaint: Weakness Time Seen by Provider: 04/01/18 03:02 Source: patient, EMS Mode of arrival: EMS Limitations: physical limitation - History of Present Illness Initial comments: Maria D virk pleasant 62yo female with extensive past medical history is documented below who presents the emergency department today for evaluation of progressively worsening generalized malaise and weakness. Patient reports that for the past couple of weeks she's had less and less energy. She has followed with her primary care physician and was advised to come to the hospital however at that time she did not feel like coming to the hospital. Patient reports that last week she had intermittent subjective fevers which she's been treating with her home [place]. She reports that she's had generalized malaise and weakness. She is now requiring assistance in walking from her bed to the bathroom. This is new for her. She reports that this evening she attempted to walk from her bed to the bathroom and felt so weak she felt like all of her limbs went numb sober significant other decided call 911 to bring her to the emergency department. Patient reports mild intermittent headaches. She denies any nausea or vomiting change in appetite or change in bowel or bladder habits. She reports she's been using her 3 L of oxygen, she hasn't had any increased shortness of breath she denies any chest pain or palpitations. The bedside reports he feels she looks much more pale than usual. - Related Data Home Medications Medication Instructions Recorded Confirmed Albuterol Sulfate [Proair Hfa] 2 puff INHALATION RT-Q6H PRN 09/13/13 04/01/18 Escitalopram [Lexapro] 20 mg PO HS 09/13/13 04/01/18 Fluticasone Propionate [Flonase] 1 spray EA NOSTRIL DAILY PRN 09/13/13 04/01/18 Fluticasone/Salmeterol [Advair 1 puff INHALATION RT-BID 09/13/13 04/01/18 250-50 Diskus] clonazePAM [KlonoPIN] 1 mg PO TID 09/13/13 04/01/18 Ranitidine HCl [Zantac] 150 mg PO W/SUPPER 04/21/15 04/01/18 Cetirizine HCl [Zyrtec] 10 mg PO QAM 05/11/16 04/01/18 Albuterol Nebulized [Ventolin 2.5 mg INHALATION RT-QID PRN 07/12/16 04/01/18 Nebulized] Atenolol [Tenormin] 12.5 mg PO QAM 07/12/16 04/01/18 HYDROcodone/APAP 7.5-325MG [[place] 1 tab PO TID PRN 12/10/16 04/01/18 7.5-325] Montelukast [Singulair] 10 mg PO HS 12/10/16 04/01/18 Umeclidinium [place] [Incruse 1 puff INHALATION RT-HS 12/10/16 04/01/18 Ellipta] ARIPiprazole [Abilify] 5 mg PO DAILY 04/01/18 04/01/18 Nystatin 100,000 Unit/ml Susp 5 ml PO QID 04/01/18 04/01/18 [Mycostatin Oral Susp] amLODIPine [Norvasc] 5 mg PO DAILY 04/01/18 04/01/18 diphenhydrAMINE HCL [Benadryl] 25 mg PO HS PRN 04/01/18 04/01/18 Allergies Allergy/AdvReac Type Severity Reaction Status Date / Time codeine Allergy Anaphylaxis Verified 04/01/18 07:45 Iodinated Contrast- Oral and Allergy Anaphylaxis Verified 04/01/18 07:45 IV Dye [Iodinated Contrast Media - IV Dye] mold Allergy Anaphylaxis Verified 04/01/18 07:45 Penicillins Allergy Anaphylaxis Verified 04/01/18 07:45 morphine AdvReac Hallucinati Verified 04/01/18 07:45 ons Review of Systems ROS Statement: Those systems with pertinent positive or pertinent negative responses have been documented in the HPI. ROS Other: All systems not noted in ROS Statement are negative. Past Medical History Past Medical History: Asthma, COPD, GERD/Reflux, Hypertension, Osteoarthritis ( OA), Pneumonia, Respiratory Disorder, Rheumatoid Arthritis (RA), Skin Disorder Additional Past Medical History / Comment(s): BULLOUS EMPHYSEMA, end stage COPD uses O2 at 3L/NC continuous, arthritis-multiple joints, seizures as child, hiatal hernia, diarrhea, gallstones, kidney stones, eczema, History of Any Multi-Drug Resistant Organisms: None Reported Past Surgical History: Adenoidectomy, Tonsillectomy, Tubal Ligation Additional Past Surgical History / Comment(s): THORACOTOMY TO REMOVE BENIGN MASS NEAR RT LUNG, ESWLs, EGD/colonoscopy, laparoscopic surgery for bladder polyps Past Anesthesia/Blood Transfusion Reactions: Family History of Problems w/ Anesthesia, Family Hisory of Malignant Hyperthermia Additional Past Anesthesia/Blood Transfusion Reaction / Comment(s): The patients son carries the gene for malignant hyperthermia but has not had a reaction to anesthesia. Pt has not had reaction to anesthesia or been tested herself. Past Psychological History: Anxiety, Depression, Panic Disorder Smoking Status: Former smoker Past Alcohol Use History: None Reported Past Drug Use History: None Reported - Past Family History Son(s) Additional Family Medical History / Comment(s): carries the gene for malignant hyperthermia. He had had anethesia without and reaction Father Family Medical History: Coronary Artery Disease (CAD), Myocardial Infarction ([place] ), Renal Disease Additional Family Medical History / Comment(s): Father of a [place] at the age of 59yrs. Mother Family Medical History: Cancer Additional Family Medical History / Comment(s): Mother of leukemia at the age of 57yrs. Brother(s) Family Medical History: Cancer Additional Family Medical History / Comment(s): Brother of bladder cancer at the age of 50yrs. General Exam - General Exam Comments Initial Comments: Physical Exam GENERAL: Chronically ill-appearing, appears older than stated age HENT: Normocephalic, Atraumatic. EYES: PERRL, EOMI PULMONARY: Mild expiratory wheezing CARDIOVASCULAR: There is a regular rate and rhythm without any murmurs gallops or rubs. There is clubbing of the fingernails ABDOMEN: Soft and nontender with normal bowel sounds. SKIN: Skin is dry and peeling : Deferred NEUROLOGIC: Patient is alert and oriented x3. Moving all extremities spontaneously MUSCULOSKELETAL: Diffuse atrophy PSYCHIATRIC: Normal psychiatric evaluation. Limitations: no limitations Limitations: physical limitation Course Vital Signs 04/01/18 04/01/18 04/01/18 02:50 03:00 03:30 Temperature 98.8 F Pulse Rate 70 68 Respiratory 19 16 19 Rate Blood Pressure 102/80 102/80 102/80 O2 Sat by Pulse 97 98 98 Oximetry 04/01/18 04/01/18 04/01/18 04:00 04:30 05:00 Temperature Pulse Rate 69 63 71 Respiratory 20 17 19 Rate Blood Pressure 81/69 83/63 81/57 O2 Sat by Pulse 98 99 99 Oximetry 04/01/18 04/01/18 04/01/18 05:30 07:38 07:43 Temperature 98.2 F Pulse Rate 71 79 Respiratory 18 18 Rate Blood Pressure 124/78 80/52 O2 Sat by Pulse 99 98 Oximetry EKG Findings - EKG Comments: EKG Findings:: EKG obtained at 2:58 AM, rate is 68 rhythm is sinus there is a normal axis there are normal intervals, [place] 140 QRS 68 QTC 438. There are no acute ST elevations or depressions is no evidence of acute ischemia or infarction or arrhythmia. Medical Decision Making - Medical Decision Making The patient was seen and evaluated history was obtained from the patient and significant other at bedside This is a 62-year-old female with severe COPD presenting for generalized malaise neck sign on exam the patient appears much older than stated age, she is chronically debilitated, she is very pale dry skin, she has clubbing of the fingernails consistent with her chronic pulmonary disease. Absent imaging were ordered - Lab Data Result diagrams: 04/01/18 03:40 04/01/18 03:40 Lab Results 04/01/18 04/01/18 04/01/18 Range/Units 03:40 03:40 03:40 WBC 8.2 (3.8-10.6) k/uL RBC 3.67 L (3.80-5.40) m/uL Hgb 10.8 L (11.4-16.0) gm/dL Hct 33.6 L (34.0-46.0) % MCV 91.6 (80.0-100.0) fL MCH 29.5 (25.0-35.0) pg MCHC 32.2 (31.0-37.0) g/dL RDW 13.6 (11.5-15.5) % Plt Count 203 (150-450) k/uL Neutrophils % 73 % Lymphocytes % 18 % Monocytes % 7 % Eosinophils % 2 % Basophils % 0 % Neutrophils # 6.0 (1.3-7.7) k/uL Lymphocytes # 1.4 (1.0-4.8) k/uL Monocytes # 0.5 (0-1.0) k/uL Eosinophils # 0.1 (0-0.7) k/uL Basophils # 0.0 (0-0.2) k/uL PT (9.0-12.0) sec INR (<1.2) APTT (22.0-30.0) sec Sodium 141 (137-145) mmol/L Potassium 3.9 (3.5-5.1) mmol/L Chloride 100 (98-107) mmol/L Carbon Dioxide 37 H (22-30) mmol/L Anion Gap 4 mmol/L BUN 11 (7-17) mg/dL Creatinine 0.41 L (0.52-1.04) mg/dL Est GFR (CKD-EPI)AfAm >90 (>60 ml/min/1.73 sqM) Est GFR (CKD-EPI)NonAf >90 (>60 ml/min/1.73 sqM) Glucose 113 H (74-99) mg/dL Calcium 8.9 (8.4-10.2) mg/dL Magnesium 1.7 (1.6-2.3) mg/dL Total Bilirubin 0.7 (0.2-1.3) mg/dL AST 19 (14-36) U/L ALT 27 (9-52) U/L Alkaline Phosphatase 54 (38-126) U/L Total Creatine Kinase 23 L (30-135) U/L CK-MB (CK-2) 0.5 (0.0-2.4) ng/mL CK-MB (CK-2) Rel Index 2.2 Troponin I <0.012 (0.000-0.034) ng/mL NT-Pro-B Natriuret Pep pg/mL Total Protein 5.7 L (6.3-8.2) g/dL Albumin 3.4 L (3.5-5.0) g/dL TSH 0.699 (0.465-4.680) mIU/L Urine Color Urine Appearance (Clear) Urine pH (5.0-8.0) Ur Specific [place] (1.001-1.035) Urine Protein (Negative) Urine Glucose (UA) (Negative) Urine Ketones (Negative) Urine Blood (Negative) Urine Nitrite (Negative) Urine Bilirubin (Negative) Urine Urobilinogen (<2.0) mg/dL Ur Leukocyte Esterase (Negative) Urine RBC (0-5) /hpf Urine WBC (0-5) /hpf Ur Squamous Epith Cells (0-4) /hpf Urine Mucus (None) /hpf 04/01/18 04/01/18 04/01/18 Range/Units 03:40 03:40 05:10 WBC (3.8-10.6) k/uL RBC (3.80-5.40) m/uL Hgb (11.4-16.0) gm/dL Hct (34.0-46.0) % MCV (80.0-100.0) fL MCH (25.0-35.0) pg MCHC (31.0-37.0) g/dL RDW (11.5-15.5) % Plt Count (150-450) k/uL Neutrophils % % Lymphocytes % % Monocytes % % Eosinophils % % Basophils % % Neutrophils # (1.3-7.7) k/uL Lymphocytes # (1.0-4.8) k/uL Monocytes # (0-1.0) k/uL Eosinophils # (0-0.7) k/uL Basophils # (0-0.2) k/uL PT 10.3 (9.0-12.0) sec INR 1.0 (<1.2) APTT 24.5 (22.0-30.0) sec Sodium (137-145) mmol/L Potassium (3.5-5.1) mmol/L Chloride (98-107) mmol/L Carbon Dioxide (22-30) mmol/L Anion Gap mmol/L BUN (7-17) mg/dL Creatinine (0.52-1.04) mg/dL Est GFR (CKD-EPI)AfAm (>60 ml/min/1.73 sqM) Est GFR (CKD-EPI)NonAf (>60 ml/min/1.73 sqM) Glucose (74-99) mg/dL Calcium (8.4-10.2) mg/dL Magnesium (1.6-2.3) mg/dL Total Bilirubin (0.2-1.3) mg/dL AST (14-36) U/L ALT (9-52) U/L Alkaline Phosphatase (38-126) U/L Total Creatine Kinase (30-135) U/L CK-MB (CK-2) (0.0-2.4) ng/mL CK-MB (CK-2) Rel Index Troponin I (0.000-0.034) ng/mL NT-Pro-B Natriuret Pep 398 pg/mL Total Protein (6.3-8.2) g/dL Albumin (3.5-5.0) g/dL TSH (0.465-4.680) mIU/L Urine Color Light Yellow Urine Appearance Clear (Clear) Urine pH 6.0 (5.0-8.0) Ur Specific [place] 1.007 (1.001-1.035) Urine Protein Negative (Negative) Urine Glucose (UA) Negative (Negative) Urine Ketones Negative (Negative) Urine Blood Negative (Negative) Urine Nitrite Negative (Negative) Urine Bilirubin Negative (Negative) Urine Urobilinogen <2.0 (<2.0) mg/dL Ur Leukocyte Esterase Small H (Negative) Urine RBC 1 (0-5) /hpf Urine WBC 9 H (0-5) /hpf Ur Squamous Epith Cells <1 (0-4) /hpf Urine Mucus Few H (None) /hpf Disposition Clinical Impression: Hypotension, Malaise, Weakness Disposition: ADMITTED IP TO THIS HOSP
[2018-04-01 04:00] LABS: Basophils % (A) 0 %; Eosinophils # (A) 0.1 k/uL (0-0.7); Eosinophils % (A) 2 %; HCT 33.6 % (34.0-46.0); HGB 10.8 gm/dL (11.4-16.0); Lymphocytes # (A) 1.4 k/uL (1.0-4.8); Lymphocytes % (A) 18 %; MCH 29.5 pg (25.0-35.0); MCHC 32.2 g/dL (31.0-37.0); MCV 91.6 fL (80.0-100.0); Mean Platelet Volume 7.4; Monocytes # (A) 0.5 k/uL (0-1.0); Monocytes % (A) 7 %; Neutrophils % (A) 73 %; Platelet Count 203 k/uL (150-450); RBC 3.67 m/uL (3.80-5.40); RDW 13.6 % (11.5-15.5); WBC 8.2 k/uL (3.8-10.6)
[2018-04-01 04:08] LABS: Partial Thromboplastin Time 24.5 sec (22.0-30.0); Prothrombin Time 10.3 sec (9.0-12.0)
[2018-04-01 04:12] LABS: ALT 27 U/L (9-52); AST 19 U/L (14-36); Albumin 3.4 g/dL (3.5-5.0); Alkaline Phosphatase 54 U/L (38-126); Anion Gap 4 mmol/L; Blood Urea Nitrogen 11 mg/dL (7-17); Calcium 8.9 mg/dL (8.4-10.2); Carbon Dioxide 37 mmol/L (22-30); Chloride 100 mmol/L (98-107); Glucose 113 mg/dL (74-99); Magnesium 1.7 mg/dL (1.6-2.3); Potassium 3.9 mmol/L (3.5-5.1); Sodium 141 mmol/L (137-145); Total Bilirubin 0.7 mg/dL (0.2-1.3); Total Protein 5.7 g/dL (6.3-8.2)
--- NOTE | 2018-04-01 04:38 | XR ---
EXAM: XR Chest, 2 Views CLINICAL HISTORY: ITS.REASON XR Reason: Weakness TECHNIQUE: Frontal and lateral views of the chest. COMPARISON: 07/17/16 chest x-ray IMPRESSION: Normal heart size. Hyperinflated lungs. No consolidation or pleural effusion.
[2018-04-01 04:59] LABS: Creatine Kinase 23 U/L (30-135)
[2018-04-01 05:12] LABS: Creatine Kinase MB 0.5 ng/mL (0.0-2.4); Troponin I <0.012 ng/mL (0.000-0.034)
[2018-04-01 05:36] LABS: Appearance,Urine Clear (Clear); Bilirubin,Urine Negative (Negative); Blood,Urine Negative (Negative); Color,Urine Light Yellow; Glucose,Urine (UA) Negative (Negative); Ketones,Urine Negative (Negative); Leukocyte Esterase,Urine Small (Negative); Mucus,Urine Few /hpf; Nitrite,Urine Negative (Negative); Protein,Urine Negative (Negative); RBC,Urine 1 /hpf (0-5); Specific Gravity,Urine 1.007 (1.001-1.035); Squamous Epithelial Cell,Urine <1 /hpf (0-4); Urobilinogen,Urine <2.0 mg/dL (<2.0); WBC,Urine 9 /hpf (0-5)
[2018-04-01] MEDS ORDERED: NALOXONE 0.4 MG/ML 1 ML VIAL IV PRN (07:13)
[2018-04-01 08:56] VITALS: BMI 17.9
[2018-04-01] MEDS ORDERED: FLUTICASONE 50MCG/SPRAY NASAL 16GM EA NOSTRIL PRN (12:49)
[2018-04-01] MEDS ORDERED: ALBUTEROL NEBULIZED 2.5 MG/3 ML INHALATION PRN (12:49)
[2018-04-01] MEDS ORDERED: diphenhydrAMINE 25 MG CAP PO PRN (12:49)
[2018-04-01] MEDS ORDERED: ARIPiprazole 5 MG TAB PO SCH ×2 (12:49→13:20)
[2018-04-01] MEDS: clonazePAM 1 MG TAB PO SCH ×3 (13:23→20:39)
[2018-04-01] MEDS: LORATADINE 10 MG TAB PO SCH (13:23)
[2018-04-01] MEDS: HYDROcodone/APAP 7.5-325MG 1 EACH TAB PO PRN ×2 (13:26→20:38)
[2018-04-01] MEDS: IPRATROPIUM 0.5 MG/2.5 ML NEBU INHALATION SCH ×2 (13:53→13:56)
--- NOTE | 2018-04-01 14:31 | XR ---
EXAMINATION TYPE: XR cervical spine comp DATE OF EXAM: 04/01/2018 COMPARISON: NONE HISTORY: Neck pain TECHNIQUE: 5 views FINDINGS: The vertebra have normal alignment. Disc spaces are fairly normal for age. Posterior elemen ts are intact. There are no cervical ribs. Atlantoaxial facet joint is normal. Neural foramina are fa irly well-maintained. IMPRESSION: Negative cervical spine exam.
[2018-04-01] MEDS: NYSTATIN 100,000 UNIT/ML SUSP 500,000 UNIT/5 ML CUP PO SCH ×3 (15:08→20:40)
--- NOTE | 2018-04-01 15:33 | P.CNNES ---
History of Present Illness Consult date: 04/01/18 History of Present Illness: This patient is a 62-year-old right-handed white female who was brought into the emergency room at [facility] today for evaluation of weakness and headache pain. Patient states that since she has been experiencing bifrontal headache pain bilaterally and has been having increased weakness. Over the last 2-3 weeks she has been very weak complaining of malaise and tiredness. She was seen by her primary care physician and had no significant findings at that time in February. Apparently last week she had intermittent evidence for fever which has since resolved. She has a history of rheumatoid arthritis and does take Narco for management of some of her arthritic pain. More recently but has bothered her is been headache pain which she describes mostly in the bifrontal and vertex area. It seems to wax and wane but can be very severe at times. She was feeling so weak at home that she was unable to get up and her boyfriend and significant other decided to call ambulance. EMS evaluated her and brought her into the emergency room early this morning for evaluation. She was complaining of increased shortness of breath. She was given some pain medication and admitted to Hospital. The patient was evaluated in the ER by Dr. Peck. Some routine lab testing was done and she was advised admission to hospital. Patient states that she has history of COPD and this also causes her a great deal of distress with shortness of breath and weakness. Her headache pain has not shown much improvement since admission. She was sent for an x-ray of the cervical spine given her history of rheumatoid arthritis today and this was reviewed and is negative cervical spine x-ray result. We reviewed the results today with the patient. Patient states that the headache does seem to radiate from the side and back of her head at times. On examination today at bedside she does have evidence of bilateral occipital neuritis on palpation of the suboccipital notch. She rates the headache pain is 8/10 when this is been evaluated. This does reproduce much of her same headache pain that she has been complaining of at home. We have recommended patient to undergo a computed tomography scan of the brain as this was not done in the ER. We will also recommend bilateral occipital nerve block procedure for treatment of the occipital neuritis. We will arrange this with anesthesia to be done tomorrow for further management. We have reviewed all of our results today with the patient. Neurology is now been consulted for further evaluation and recommendations. Review of Systems Constitutional: Reports chronic headaches, Reports chronic pain, Reports malaise , Reports weakness, Reports weight loss, Denies chills, Denies fever Eyes: denies blurred vision, denies pain Ears, nose, mouth and throat: Denies headache, Denies sore throat Cardiovascular: Denies chest pain, Denies shortness of breath Respiratory: Denies cough Gastrointestinal: Denies abdominal pain, Denies diarrhea, Denies nausea, Denies vomiting Genitourinary: Denies dysuria, Denies hematuria Musculoskeletal: Denies myalgias Integumentary: Denies pruritus, Denies rash Neurological: Reports headaches (Patient has evidence of bilateral occipital neuritis on palpation which pain level is 8/10.), Reports paresthesias, Denies numbness, Denies weakness Psychiatric: Denies anxiety, Denies depression Endocrine: Denies fatigue, Denies weight change Past Medical History Past Medical History: Asthma, COPD, GERD/Reflux, Hypertension, Osteoarthritis ( OA), Pneumonia, Respiratory Disorder, Rheumatoid Arthritis (RA), Skin Disorder Additional Past Medical History / Comment(s): BULLOUS EMPHYSEMA, end stage COPD uses O2 at 3L/NC continuous, arthritis-multiple joints, seizures as child, hiatal hernia, diarrhea, gallstones, kidney stones, eczema, History of Any Multi-Drug Resistant Organisms: None Reported Past Surgical History: Adenoidectomy, Tonsillectomy, Tubal Ligation Additional Past Surgical History / Comment(s): THORACOTOMY TO REMOVE BENIGN MASS NEAR RT LUNG, ESWLs, EGD/colonoscopy, laparoscopic surgery for bladder polyps Past Anesthesia/Blood Transfusion Reactions: Family History of Problems w/ Anesthesia, Family Hisory of Malignant Hyperthermia Additional Past Anesthesia/Blood Transfusion Reaction / Comment(s): The patients son carries the gene for malignant hyperthermia but has not had a reaction to anesthesia. Pt has not had reaction to anesthesia or been tested herself. Past Psychological History: Anxiety, Depression, Panic Disorder Additional Psychological History / Comment(s): . Smoking Status: Former smoker Past Alcohol Use History: None Reported Additional Past Alcohol Use History / Comment(s): Pt started smoking in 1974. pt states she is currently trying to quit as of mar 26, 2018. Past Drug Use History: None Reported Additional Drug Use History / Comment(s): denies - Past Family History Son(s) Additional Family Medical History / Comment(s): carries the gene for malignant hyperthermia. He had had anethesia without and reaction Father Family Medical History: Coronary Artery Disease (CAD), Myocardial Infarction ([place] ), Renal Disease Additional Family Medical History / Comment(s): Father of a [place] at the age of 59yrs. Mother Family Medical History: Cancer Additional Family Medical History / Comment(s): Mother of leukemia at the age of 57yrs. Brother(s) Family Medical History: Cancer Additional Family Medical History / Comment(s): Brother of bladder cancer at the age of 50yrs. Medications and Allergies Home Medications Medication Instructions Recorded Confirmed Type Albuterol Sulfate [Proair Hfa] 2 puff INHALATION RT-Q6H PRN 09/13/13 04/01/18 History Escitalopram [Lexapro] 20 mg PO HS 09/13/13 04/01/18 History Fluticasone Propionate [Flonase] 1 spray EA NOSTRIL DAILY PRN 09/13/13 04/01/18 History Fluticasone/Salmeterol [Advair 1 puff INHALATION RT-BID 09/13/13 04/01/18 History 250-50 Diskus] clonazePAM [KlonoPIN] 1 mg PO TID 09/13/13 04/01/18 History Ranitidine HCl [Zantac] 150 mg PO W/SUPPER 04/21/15 04/01/18 History Cetirizine HCl [Zyrtec] 10 mg PO QAM 05/11/16 04/01/18 History Albuterol Nebulized [Ventolin 2.5 mg INHALATION RT-QID PRN 07/12/16 04/01/18 History Nebulized] Atenolol [Tenormin] 12.5 mg PO QAM 07/12/16 04/01/18 History HYDROcodone/APAP 7.5-325MG [[place] 1 tab PO TID PRN 12/10/16 04/01/18 History 7.5-325] Montelukast [Singulair] 10 mg PO HS 12/10/16 04/01/18 History Umeclidinium [place] [Incruse 1 puff INHALATION RT-HS 12/10/16 04/01/18 History Ellipta] ARIPiprazole [Abilify] 5 mg PO DAILY 04/01/18 04/01/18 History Nystatin 100,000 Unit/ml Susp 5 ml PO QID 04/01/18 04/01/18 History [Mycostatin Oral Susp] amLODIPine [Norvasc] 5 mg PO DAILY 04/01/18 04/01/18 History diphenhydrAMINE HCL [Benadryl] 25 mg PO HS PRN 04/01/18 04/01/18 History Allergies Allergy/AdvReac Type Severity Reaction Status Date / Time codeine Allergy Anaphylaxis Verified 04/01/18 07:45 Iodinated Contrast- Oral and Allergy Anaphylaxis Verified 04/01/18 07:45 IV Dye [Iodinated Contrast Media - IV Dye] mold Allergy Anaphylaxis Verified 04/01/18 07:45 Penicillins Allergy Anaphylaxis Verified 04/01/18 07:45 morphine AdvReac Hallucinati Verified 04/01/18 07:45 ons Physical Examination - Vital Signs Vital Signs: Vital Signs Temp Pulse Pulse Resp BP BP Pulse Ox 04/01/18 11:58 76 18 04/01/18 08:00 76 18 04/01/18 07:51 98.0 F 76 18 129/81 100 04/01/18 07:43 98.2 F 04/01/18 07:38 79 18 80/52 98 04/01/18 05:30 71 18 124/78 99 04/01/18 05:00 71 19 81/57 99 04/01/18 04:30 63 17 83/63 99 04/01/18 04:00 69 20 81/69 98 04/01/18 03:30 19 102/80 98 04/01/18 03:00 68 16 102/80 98 04/01/18 02:50 98.8 F 70 19 102/80 97 Intake and Output 04/01/18 04/01/18 04/01/18 06:59 14:59 22:59 Other: Voiding Method Toilet Bedside Commode # Voids 1 Weight 50.802 kg 44.452 kg - Constitutional General appearance: average body habitus, cooperative - EENT EENT: PERRL, mucous membranes moist - Respiratory Respiratory: lungs clear, normal breath sounds - Cardiovascular Cardiovascular: regular rate, normal S1, normal S2 Extremities: no peripheral edema bilaterally - Gastrointestinal Gastrointestinal: normoactive bowel sounds - Integumentary Integumentary: normal - Neurologic Cranial nerve examination: PERRL, EOMI, VFF, V1/V2/V3 grossly intact, face symmetric, intact gag reflex, intact corneal reflex, normal palatal elevation Speech examination: intact Sensorimotor examination: intact Motor examination - right side: 3/5: biceps, triceps, wrist flexion, wrist extension, campus coordinator, hip flexors, knee extensors, dorsiflexion, toe extension (EHL) , plantarflexion Motor examination - left side: 35: biceps, triceps, wrist flexion, wrist extension, campus coordinator, hip flexors, knee extensors, dorsiflexion, toe extension (EHL) , plantarflexion Detailed sensory examination: intact Reflex and gait examination: intact Reflexes: 1+: ankle, bicep, knee, tricep - Musculoskeletal Musculoskeletal: no pain - Psychiatric Psychiatric: mood/affect appropriate, cooperative Results - Laboratory Findings CBC and BMP: 04/01/18 03:40 04/01/18 03:40 Abnormal Lab Findings: Abnormal Labs 04/01/18 04/01/18 04/01/18 03:40 03:40 03:40 RBC 3.67 L Hgb 10.8 L Hct 33.6 L Carbon Dioxide 37 H Creatinine 0.41 L Glucose 113 H Total Creatine Kinase 23 L Total Protein 5.7 L Albumin 3.4 L Ur Leukocyte Esterase Urine WBC Urine Mucus 04/01/18 05:10 RBC Hgb Hct Carbon Dioxide Creatinine Glucose Total Creatine Kinase Total Protein Albumin Ur Leukocyte Esterase Small H Urine WBC 9 H Urine Mucus Few H Assessment and Plan (1) Occipital neuritis Current Visit: Yes Status: Acute Code(s): M54.81 - OCCIPITAL NEURALGIA SNOMED Code(s): 09408654 (2) Headache Current Visit: Yes Status: Acute Code(s): R51 - HEADACHE SNOMED Code(s): 88037691 (3) Rheumatoid arthritis Current Visit: Yes Status: Acute Code(s): M06.9 - RHEUMATOID ARTHRITIS, UNSPECIFIED SNOMED Code(s): 25773877 (4) COPD (chronic obstructive pulmonary disease) Current Visit: No Status: Acute Code(s): J44.9 - CHRONIC OBSTRUCTIVE PULMONARY DISEASE, UNSPECIFIED SNOMED Code(s): 89527082 Plan: This patient is a 62-year-old female admitted to hospital today with symptoms of generalized weakness and headache pain. She was brought into the emergency room today for further evaluation. Her headache symptoms have been present since Bryant of last year. The headaches seem to worsen and she was having increased generalized weakness and for this reason was brought into the emergency room subsequently admitted to Hospital. Her neurological examination reveals her to have evidence of bilateral occipital neuritis. She has history of severe COPD as well which is being treated. We have recommended the patient undergo bilateral occipital nerve block procedure for treatment. We will also obtain a computed tomography scan of the brain as this was not performed in the emergency room today. She underwent a plain x-ray of the cervical spine which came back normal with negative cervical spine exam. We reviewed the results today with the patient. We would recommend ongoing treatment of her multiple other medical conditions leading to generalized weakness. We will continue to follow her progress closely during this admission. Overall prognosis at this time remains very guarded. Time with Patient: Greater than 30
--- NOTE | 2018-04-01 16:12 | CT ---
EXAMINATION TYPE: CT brain wo con DATE OF EXAM: 04/01/2018 COMPARISON: None HISTORY: Chronic headaches. CT DLP: 1048.4 mGycm Automated exposure control for dose reduction was used. FINDINGS: Ventricles and sulci appear normal. There is no mass effect nor midline shift. There is no sign of in tracranial hemorrhage. Calvarium is intact. IMPRESSION: NEGATIVE CT SCAN OF THE BRAIN.
[2018-04-01] MEDS ORDERED: FAMOTIDINE 20 MG TAB PO SCH (17:30)
--- NOTE | 2018-04-01 18:37 | HP ---
HISTORY AND PHYSICAL CHIEF COMPLAINT: 62-year-old white female brought to emergency room due to weakness, severe headache, dizziness, dehydration. She has history of rheumatoid arthritis and she has severe arthritic pain on pain medications. 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 Questionable dizziness and headaches. She has history of blood pressure fluctuated over 120s, up to 180s. Cardiology consult for hypertension acceleration. She was hypotensive 90-100 systolic on admission. She was given fluids. She has evidence of severe occipital neuritis. Neurology saw her. CT scan of the brain was done which was negative. Anesthesia was consulted for possible occipital neuritis treatment. Full 14-point review of systems negative except for weakness, malaise, weight loss. Other 14-point review of systems negative except for headaches as mentioned above and weakness. PAST MEDICAL HISTORY: Asthma, COPD on 3 L oxygen, hypertension, GERD, osteoarthritis, rheumatoid arthritis, bullous emphysema, end stage COPD, arthritis, thoracotomy to remove a benign mass in the right lung. SOCIAL HISTORY: She started smoking in 1974. She is trying to quit. Continues to smoke. No alcohol. No illicit drugs. Lives with her . FAMILY HISTORY: Son carries the gene for hyperthermia. Father coronary artery disease, myocardial infarction, renal disease. Mother cancer and leukemia. Brother of cancer. HOME MEDICINES: Albuterol, Lexapro, Flonase, Incruse Ellipta, Singulair, Adger 7.5, Tenormin, Ventolin, Zyrtec, Xanax, Klonopin, Abilify, Norvasc, Benadryl, Mycostatin. ALLERGIES: CODEINE, PENICILLIN, MORPHINE. PHYSICAL EXAMINATION: VITAL SIGNS: Blood pressure is 80 systolic on admission, currently is 102/80, temp 98, pulse 79-70, pulse 76, O2 saturation on 3 L is 97-100. Reflexes are 1+ ankle, biceps, triceps, tenderness to palpation occipital and occiput neck area radiating to bilateral scapular areas of significant nature. Psych: Anxious. Endocrine: Thin, cachectic. Lungs show wheezes times four. Cardiovascular S1, S2. ENDOCRINE: She appears thin, cachectic. LABORATORY DATA: White count 8.2, hemoglobin is 10.3. ASSESSMENT: 1. Dehydration. 2. Hypotension. 3. Possible neuritis. 4. Rheumatoid arthritis. 5. Headache. 6. Chronic obstructive pulmonary disease. PLAN: Fluids are given. For hypotension home medicines is being reordered. Neurology is seeing her for headache and occipital neuritis. She may be able to go home after neuritis treatment tomorrow. Follow up in the next 24 to 48 hours. MMODL / IJN: [id number] /
[2018-04-01] MEDS ORDERED: SYMBICORT 80-4.5 MCG INHALER INHALATION SCH (20:00)
[2018-04-01] MEDS ORDERED: INCRUSE ELLIPTA 62.5MCG INHALATION SCH (20:00)
[2018-04-01] MEDS ORDERED: IPRATROPIUM 0.5 MG/2.5 ML NEBU INHALATION SCH (20:00)
[2018-04-01] MEDS: ADVAIR INHALATION SCH (20:06)
[2018-04-01] MEDS ORDERED: ESCITALOPRAM 20 MG TAB PO SCH (21:00)
[2018-04-01] MEDS ORDERED: MONTELUKAST 10 MG TAB PO SCH (21:00)
[2018-04-02 07:57] VITALS: RESP 18
[2018-04-02] MEDS: ADVAIR INHALATION SCH (08:13)
[2018-04-02] MEDS ORDERED: ESCITALOPRAM 20 MG TAB PO SCH (09:00)
[2018-04-02] MEDS ORDERED: ATENOLOL 25 MG TAB PO SCH (09:00)
--- NOTE | 2018-04-02 09:37 | P.PN ---
Progress Note - Text Progress Note Date: 04/02/18 This is 62 years FEMALE, who was admitted to [facility], and she is diagnosed with headache ,and occipital neuralgia, she was evaluated by neurology services ,and there was consultation for pain management services ,to do bilateral occipital nerve block, to manage her headache, patient reported that her headache improved, and currently, she has no headache , and her headache improved since yesterday night ,for this reason we can hold off on doing ,any interventional pain management, and patient can be good candidate to have bilateral occipital nerve block of the headache happened again.
[2018-04-02] MEDS: clonazePAM 1 MG TAB PO SCH ×2 (10:09→16:05)
[2018-04-02] MEDS: LORATADINE 10 MG TAB PO SCH (10:09)
[2018-04-02] MEDS: HYDROcodone/APAP 7.5-325MG 1 EACH TAB PO PRN (10:16)
[2018-04-02] MEDS: NYSTATIN 100,000 UNIT/ML SUSP 500,000 UNIT/5 ML CUP PO SCH ×2 (11:05→17:56)
[2018-04-02 15:48] VITALS: BP 89/57; PULSE 80; TEMP 98
--- NOTE | 2018-04-02 17:42 | P.PN ---
Subjective Progress Note Date: 04/02/18 This patient is a 62-year-old female who was seen yesterday neurology consultation for evaluation of headache pain. At the time yesterday she had evidence suggesting bilateral occipital neuritis. We recommended a consultation with anesthesia pain management for bilateral occipital block procedure. Patient was seen today by the anesthesiologist and her headache pain had resolved. She may have this procedure done on a when necessary basis if the headache should return. Patient is resting comfortably and is feeling much better today. She is being ready for discharge home later today. She may follow-up in the outpatient neurology clinic as needed if her headache symptoms should recur. Once again she was seen by anesthesia and does not require nerve block procedure at this time. Overall she is doing much better and feels ready for discharge. We will continue follow her progress closely during this admission. Her overall prognosis remains fair. Objective - Vital Signs Vital signs: Vital Signs Temp 98.0 F 04/02/18 15:46 Pulse 80 04/02/18 15:46 Resp 18 04/02/18 15:46 BP 89/57 04/02/18 15:46 Pulse Ox 98 04/02/18 15:46 Intake & Output 04/01/18 04/02/18 04/02/18 18:59 06:59 18:59 Intake Total 814 Balance 814 Weight 44.452 kg 44.452 kg Intake: Oral 714 Other 100 Other: Voiding Method Toilet Toilet Toilet Bedside Commode Bedside Commode Bedside Commode # Voids 1 1 # Bowel Movements 1 - Exam Physical examination: PHYSICAL EXAMINATION: Patient is resting comfortably in bed. VITAL SIGNS: Blood pressure is [89/57]. Heart rate is [80]. Respiration is [18] . Temperature is [98.0]. HEENT: Head is atraumatic, neck is supple, there were no carotid bruits. CHEST: Lungs are clear to auscultation and percussion. CARDIAC: S1, S2 normal rate and rhythm. There is no murmur. ABDOMEN: Soft and nontender. Bowel sounds are present. EXTREMITIES: There is no pedal edema. Peripheral pulses are present. Neurological examination: Patient has a nonfocal neurological examination. - Labs CBC & Chem 7: 04/01/18 03:40 04/01/18 03:40 Assessment and Plan (1) Occipital neuritis Current Visit: Yes Status: Acute Code(s): M54.81 - OCCIPITAL NEURALGIA SNOMED Code(s): 15190574 (2) Headache Current Visit: Yes Status: Acute Code(s): R51 - HEADACHE SNOMED Code(s): 11215658 (3) Rheumatoid arthritis Current Visit: Yes Status: Acute Code(s): M06.9 - RHEUMATOID ARTHRITIS, UNSPECIFIED SNOMED Code(s): 42024431 (4) COPD (chronic obstructive pulmonary disease) Current Visit: No Status: Acute Code(s): J44.9 - CHRONIC OBSTRUCTIVE PULMONARY DISEASE, UNSPECIFIED SNOMED Code(s): 52883983 Plan: This patient is a 62-year-old female who was seen in neurology consultation yesterday for headache pain. She had evidence yesterday of probable bilateral occipital neuritis. This morning her headache pain is resolved. She was seen by anesthesia and pain management for possible occipital nerve block procedure. Since her headache pain is resolved she does not require the procedure to be done at this time. She may follow-up with anesthesia as outpatient if her headache pain should recur. Patient is being ready for discharge home today and may follow-up in the outpatient neurology clinic for further headache management if it should recur once she is discharged. Her overall prognosis at this time remains guarded.
== END 2018-04-02 18:02 | disposition home or self-care (01) ==
LOC: EC 02:43 → 1SOBS 07:13
PROVIDERS: ADMIT Family Medicine; ATTEND Family Medicine
DX: E86.0 Dehydration (principal); M54.81 Occipital neuralgia; R63.4 Abnormal weight loss; M06.9 Rheumatoid arthritis, unspecified; J44.9 Chronic obstructive pulmonary disease, unspecified; Z99.81 Dependence on supplemental oxygen; I95.9 Hypotension, unspecified; I10 Essential (primary) hypertension; K21.9 Gastro-esophageal reflux disease without esophagitis; M19.90 Unspecified osteoarthritis, unspecified site; F17.200 Nicotine dependence, unspecified, uncomplicated; F32.9 Major depressive disorder, single episode, unspecified; F41.0 Panic disorder [episodic paroxysmal anxiety]; Z82.49 Family history of ischemic heart disease and other diseases of the circulatory system; Z80.52 Family history of malignant neoplasm of bladder; Z80.6 Family history of leukemia; Z88.5 Allergy status to narcotic agent; Z88.0 Allergy status to penicillin; Z87.01 Personal history of pneumonia (recurrent); Z87.442 Personal history of urinary calculi; Z79.899 Other long term (current) drug therapy; Z79.51 Long term (current) use of inhaled steroids; Z91.041 Radiographic dye allergy status; Z91.048 Other nonmedicinal substance allergy status
CPT/HCPCS: 96360; 99285; 36415; 94640; 93005; 83880; 80053; 82550; 82553; 83735; 84443; 84484; 85025; 85610; 85730; 81001; 72050; 71046; 70450; G0378 ×2

== ENCOUNTER → 2018-04-19 | Outpatient (CLI) | payer MEDICARE ==
--- NOTE | 2018-04-19 14:20 | XR ---
EXAMINATION TYPE: XR KUB DATE OF EXAM: 04/19/2018 COMPARISON: 05/16/2016 INDICATION: Kidney stone TECHNIQUE: Single view abdomen frontal projection FINDINGS: There is a normal bowel gas pattern. Fecal debris is within the colon. Psoas margins are normal. No organomegaly is present. Previous left renal calcifications are not identified. Multiple phleboliths are within the pelvis. IMPRESSION: 1. Nonspecific abdomen. 2. Previous left renal calcification is not evident on current exam.
== END ==
LOC: RADXRMAIN 13:47
PROVIDERS: ATTEND Urology
DX: N20.0 Calculus of kidney (principal)
CPT/HCPCS: 74018

== ENCOUNTER → 2018-05-14 | Outpatient (CLI) | payer MEDICARE, OTHER ==
--- NOTE | 2018-05-14 16:59 | CT ---
EXAMINATION TYPE: CT abdomen pelvis wo con DATE OF EXAM: 05/14/2018 COMPARISON: 09/26/2016 INDICATION: Bilateral flank pain, history of stones. DLP: 204.1 mGycm, Automated exposure control for dose reduction was used. CONTRAST: 0 mL of Isovue 300. Study performed without Oral Contrast TECHNIQUE: Axial images were obtained from above the diaphragm to the pubic rami in the axial plane a t 5 mm thick sections. Reconstructed images are reviewed on the computer in the coronal plane. FINDINGS: Limited CT sections are obtained the lung bases. The lung bases are clear. CT ABDOMEN: Liver: Normal Spleen: Normal Pancreas: Mildly atrophic Adrenal glands: The adrenal glands are normal. Gallbladder: Cholelithiasis is present. Kidneys: No masses are evident. No hydronephrosis is present. No cysts are present. There are reza ral nonobstructing renal stones within the left kidney. This would include a lateral renal stone neha uring 0.3 cm the posterior lateral inferior pole renal stone measuring 0.5 cm anterior lateral inferi or pole renal stone measuring 0.3 cm. No hydroureter is evident. Aorta: Vascular calcification is within the aorta. Inferior vena cava: Normal. CT PELVIS: Loops of bowel within the abdomen and pelvis are normal. Study is performed without oral contrast limiting bowel evaluation. Appendix: Not visualized. No suspicious tubular structures or inflammatory changes evident Urinary bladder: Decompressed, unable to be evaluated. Genitourinary structures: Uterus is unremarkable. Adnexal regions appear within normal limits. Osseous structures: No suspicious lytic or sclerotic lesions. IMPRESSIONS: 1. Nonobstructing left renal stones. 2. Cholelithiasis.
== END | disposition home or self-care (01) ==
LOC: RADCTMAIN 11:42
PROVIDERS: ATTEND Urology
DX: N20.0 Calculus of kidney (principal); K80.20 Calculus of gallbladder without cholecystitis without obstruction; Z88.0 Allergy status to penicillin; Z88.5 Allergy status to narcotic agent; Z91.041 Radiographic dye allergy status
CPT/HCPCS: 74176

== ENCOUNTER 2018-12-09 08:09 | Inpatient (IN) | payer MEDICARE ==
--- NOTE | 2018-12-09 08:27 | ED ---
Fall HPI - General Chief Complaint: Fall Stated Complaint: Fall Time Seen by Provider: 12/09/18 08:16 Source: patient, family, EMS, RN notes reviewed, old records reviewed Mode of arrival: ambulatory - History of Present Illness Initial Comments: This is a 63-year-old female with a history of plantar fasciitis COPD who try to get out of bed this morning he had severe foot pain and fell she did plane of right hip and right wrist pain. No head neck or back pain no other modifying factors at this time. She was brought in by EMS. She did have 8/10 pain and was given IV fentanyl was brought down to about 5/10. Pain was just kind is sharp. MD Complaint: fall - Related Data Home Medications Medication Instructions Recorded Confirmed Albuterol Sulfate [Proair Hfa] 2 puff INHALATION RT-Q6H PRN 09/13/13 12/09/18 Escitalopram [Lexapro] 20 mg PO DAILY 09/13/13 12/09/18 Fluticasone Propionate [Flonase] 1 spray EA NOSTRIL DAILY PRN 09/13/13 12/09/18 Fluticasone/Salmeterol [Advair 1 puff INHALATION RT-BID 09/13/13 12/09/18 250-50 Diskus] clonazePAM [KlonoPIN] 1 mg PO TID 09/13/13 12/09/18 Ranitidine HCl [Zantac] 150 mg PO W/SUPPER 04/21/15 12/09/18 Cetirizine HCl [Zyrtec] 10 mg PO QAM 05/11/16 12/09/18 Albuterol Nebulized [Ventolin 2.5 mg INHALATION RT-QID PRN 07/12/16 12/09/18 Nebulized] Atenolol [Tenormin] 12.5 mg PO QAM 07/12/16 12/09/18 HYDROcodone/APAP 7.5-325MG [[place] 1 tab PO TID PRN 12/10/16 12/09/18 7.5-325] Montelukast [Singulair] 10 mg PO HS 12/10/16 12/09/18 Umeclidinium [place] [Incruse 1 puff INHALATION RT-HS 12/10/16 12/09/18 Ellipta] ARIPiprazole [Abilify] 5 mg PO HS 04/01/18 12/09/18 diphenhydrAMINE HCL [Benadryl] 25 mg PO HS PRN 04/01/18 12/09/18 Allergies Allergy/AdvReac Type Severity Reaction Status Date / Time codeine Allergy Anaphylaxis Verified 12/09/18 09:01 Iodinated Contrast- Oral and Allergy Anaphylaxis Verified 12/09/18 09:01 IV Dye [Iodinated Contrast Media - IV Dye] mold Allergy Anaphylaxis Verified 12/09/18 09:01 Penicillins Allergy Anaphylaxis Verified 12/09/18 09:01 morphine AdvReac Hallucinati Verified 12/09/18 09:01 ons Review of Systems ROS Statement: Those systems with pertinent positive or pertinent negative responses have been documented in the HPI. ROS Other: All systems not noted in ROS Statement are negative. Past Medical History Past Medical History: Asthma, COPD, GERD/Reflux, Hypertension, Osteoarthritis (OA), Pneumonia, Respiratory Disorder, Rheumatoid Arthritis (RA), Skin Disorder Additional Past Medical History / Comment(s): BULLOUS EMPHYSEMA, end stage COPD uses O2 at 3L/NC continuous, arthritis-multiple joints, seizures as child, hiatal hernia, diarrhea, gallstones, kidney stones, eczema, History of Any Multi-Drug Resistant Organisms: None Reported Past Surgical History: Adenoidectomy, Tonsillectomy, Tubal Ligation Additional Past Surgical History / Comment(s): THORACOTOMY TO REMOVE BENIGN MASS NEAR RT LUNG, ESWLs, EGD/colonoscopy, laparoscopic surgery for bladder polyps Past Anesthesia/Blood Transfusion Reactions: Family History of Problems w/ Anesthesia, Family Hisory of Malignant Hyperthermia Additional Past Anesthesia/Blood Transfusion Reaction / Comment(s): The patients son carries the gene for malignant hyperthermia but has not had a reaction to anesthesia. Pt has not had reaction to anesthesia or been tested herself. Past Psychological History: Anxiety, Depression, Panic Disorder Smoking Status: Former smoker Past Alcohol Use History: None Reported Past Drug Use History: None Reported - Past Family History Son(s) Additional Family Medical History / Comment(s): carries the gene for malignant hyperthermia. He had had anethesia without and reaction Father Family Medical History: Coronary Artery Disease (CAD), Myocardial Infarction ([place]), Renal Disease Additional Family Medical History / Comment(s): Father of a [place] at the age of 59yrs. Mother Family Medical History: Cancer Additional Family Medical History / Comment(s): Mother of leukemia at the age of 57yrs. Brother(s) Family Medical History: Cancer Additional Family Medical History / Comment(s): Brother of bladder cancer at the age of 50yrs. General Exam - General Exam Comments Initial Comments: Is a well-developed sec appearing female who is awake alert but somewhat lethargic complaints of the above. Limitations: no limitations General appearance: alert, in no apparent distress, lethargic Head exam: Present: atraumatic, normocephalic, normal inspection Eye exam: Present: normal appearance, PERRL, EOMI. Absent: scleral icterus, conjunctival injection, periorbital swelling ENT exam: Present: normal exam, mucous membranes moist Neck exam: Present: normal inspection. Absent: tenderness, meningismus, lymphadenopathy Respiratory exam: Absent: respiratory distress, wheezes, rales, rhonchi, stridor Cardiovascular Exam: Present: regular rate, normal rhythm, normal heart sounds. Absent: systolic murmur, diastolic murmur, rubs, gallop, clicks GI/Abdominal exam: Present: soft, normal bowel sounds. Absent: distended, tenderness, guarding, rebound, rigid Extremities exam: Present: normal inspection, full ROM, tenderness (Tenderness palpation of the distal right radius no step-off or crepitation no overt snuffbox tenderness at this time. The seizures tenderness palpation of the right hip though no evidence of shortening or lateral rotation or medial rotation. A pelvic binder had been placed previously and is in place.), normal capillary refill. Absent: pedal edema, joint swelling, calf tenderness Back exam: Present: normal inspection Neurological exam: Present: alert, oriented X3, CN II-XII intact Psychiatric exam: Present: normal affect, normal mood Skin exam: Present: warm, dry, intact, normal color. Absent: rash Course Vital Signs 12/09/18 08:13 Temperature 97.8 F Pulse Rate 82 Respiratory 20 Rate Blood Pressure 127/91 O2 Sat by Pulse 96 Oximetry Medical Decision Making - Medical Decision Making I did discuss findings the patient family as well as with Kristine who is covering for Dr. Scott. Patient be admitted to Dr. Aguilar's service with orthopedics on consult - Radiology Data Radiology results: report reviewed (I did review the imaging and report or is evidence of a subcapital right hip fracture. The wrist appears be intact.), image reviewed Disposition Clinical Impression: Fall, Subcapital fracture of right hip, End stage chronic obstructive pulmonary disease Disposition: ADMITTED IP TO THIS HOSP Condition: Fair Referrals: Chris Aguilar MD [Primary Care Provider] - 1-2 days
--- NOTE | 2018-12-09 09:15 | XR ---
EXAMINATION TYPE: XR Hip RT and AP Pelvis , 3 VIEWS DATE OF EXAM ORDERED: 12/09/2018 HISTORY: fall. COMPARISON: None. FINDINGS: There is a mildly compressed subcapital fracture of the right hip with mild angulation. No other pelvic fracture is seen.. IMPRESSION: MILDLY IMPACTED AND MILDLY ANGULATED SUBCAPITAL FRACTURE OF THE RIGHT HIP. CODE A: INITIAL ENCOUNTER FOR CLOSED FRACTURE.
--- NOTE | 2018-12-09 09:16 | XR ---
EXAMINATION TYPE: XR wrist complete RT , 4 VIEWS DATE OF EXAM ORDERED: 12/09/2018 HISTORY: fall. COMPARISON: None. FINDINGS: The bones are osteopenic likely on the basis of osteoporosis. No fracture, dislocation or other acute osseous lesion is seen. IMPRESSION: NO ACUTE OSSEOUS LESION
[2018-12-09] MEDS ORDERED: fentaNYL (PF) 50 MCG/ML 2 ML AMP IVP PRN (09:37)
[2018-12-09] MEDS ORDERED: ONDANSETRON 4 MG/2 ML VIAL IVP PRN (10:27)
[2018-12-09] MEDS ORDERED: fentaNYL (PF) 50 MCG/ML 2 ML AMP IVP STA (10:28)
[2018-12-09] MEDS ORDERED: FLUTICASONE 50MCG/SPRAY NASAL 16GM EA NOSTRIL PRN (10:30)
[2018-12-09] MEDS ORDERED: HYDROcodone/APAP 7.5-325MG 1 EACH TAB PO PRN (10:30)
[2018-12-09 11:11] LABS: Basophils # (A) 0.1 k/uL (0-0.2); Basophils % (A) 1 %; Eosinophils # (A) 0.2 k/uL (0-0.7); Eosinophils % (A) 2 %; HCT 35.3 % (34.0-46.0); HGB 11.3 gm/dL (11.4-16.0); Lymphocytes # (A) 1.3 k/uL (1.0-4.8); Lymphocytes % (A) 13 %; MCH 28.4 pg (25.0-35.0); MCHC 31.9 g/dL (31.0-37.0); MCV 89.2 fL (80.0-100.0); Mean Platelet Volume 6.8; Monocytes # (A) 0.3 k/uL (0-1.0); Monocytes % (A) 3 %; Neutrophils # (A) 8.1 k/uL (1.3-7.7); Neutrophils % (A) 80 %; Platelet Count 236 k/uL (150-450); RBC 3.96 m/uL (3.80-5.40); WBC 10.1 k/uL (3.8-10.6)
[2018-12-09 11:24] LABS: ALT 25 U/L (9-52); AST 28 U/L (14-36); African American GFR (CKD) >90 (>60 ml/min/1.73 sqM); Albumin 3.7 g/dL (3.5-5.0); Alkaline Phosphatase 64 U/L (38-126); Anion Gap 4 mmol/L; Blood Urea Nitrogen 15 mg/dL (7-17); Carbon Dioxide 33 mmol/L (22-30); Chloride 105 mmol/L (98-107); Glucose 96 mg/dL (74-99); Magnesium 1.7 mg/dL (1.6-2.3); Potassium 4.5 mmol/L (3.5-5.1); Sodium 142 mmol/L (137-145); Total Bilirubin 0.9 mg/dL (0.2-1.3); Total Protein 6.5 g/dL (6.3-8.2)
[2018-12-09] MEDS: SODIUM CHLORIDE 0.9% 1,000 ML IV SCH ×2 (11:59→23:01)
--- NOTE | 2018-12-09 12:32 | P.CNPUL ---
History of Present Illness Reason for consult: dyspnea, COPD, hypoxemia Chief complaint: Status post fall with right hip fracture History of present illness: This is a 63-year-old female well-known to me for long-standing history of COPD which is severe in nature patient is on 4 L nasal cannula oxygen also on bronchodilator therapy she has stopped smoking now for the last several weeks, she has been doing fairly well except that she fell down and developed right hip fracture for which she was brought into emergency department, orthopedic surgery has been consulted, however patient likely will require surgery for the right hip fracture Review of Systems All systems: negative Past Medical History Past Medical History: Asthma, COPD, GERD/Reflux, Hypertension, Osteoarthritis (OA), Pneumonia, Respiratory Disorder, Rheumatoid Arthritis (RA), Skin Disorder Additional Past Medical History / Comment(s): BULLOUS EMPHYSEMA, end stage COPD uses O2 at 3L/NC continuous, arthritis-multiple joints, seizures as child, hiatal hernia, diarrhea, gallstones, kidney stones, eczema, History of Any Multi-Drug Resistant Organisms: None Reported Past Surgical History: Adenoidectomy, Tonsillectomy, Tubal Ligation Additional Past Surgical History / Comment(s): THORACOTOMY TO REMOVE BENIGN MASS NEAR RT LUNG, ESWLs, EGD/colonoscopy, laparoscopic surgery for bladder polyps Past Anesthesia/Blood Transfusion Reactions: Family History of Problems w/ Anesthesia, Family Hisory of Malignant Hyperthermia Additional Past Anesthesia/Blood Transfusion Reaction / Comment(s): The patients son carries the gene for malignant hyperthermia but has not had a reaction to anesthesia. Pt has not had reaction to anesthesia or been tested herself. Past Psychological History: Anxiety, Depression, Panic Disorder Smoking Status: Former smoker Past Alcohol Use History: None Reported Past Drug Use History: None Reported - Past Family History Son(s) Additional Family Medical History / Comment(s): carries the gene for malignant hyperthermia. He had had anethesia without and reaction Father Family Medical History: Coronary Artery Disease (CAD), Myocardial Infarction ([place]), Renal Disease Additional Family Medical History / Comment(s): Father of a [place] at the age of 59yrs. Mother Family Medical History: Cancer Additional Family Medical History / Comment(s): Mother of leukemia at the age of 57yrs. Brother(s) Family Medical History: Cancer Additional Family Medical History / Comment(s): Brother of bladder cancer at the age of 50yrs. Medications and Allergies Home Medications Medication Instructions Recorded Confirmed Type Albuterol Sulfate [Proair Hfa] 2 puff INHALATION RT-Q6H PRN 09/13/13 12/09/18 History Escitalopram [Lexapro] 20 mg PO DAILY 09/13/13 12/09/18 History Fluticasone Propionate [Flonase] 1 spray EA NOSTRIL DAILY PRN 09/13/13 12/09/18 History Fluticasone/Salmeterol [Advair 1 puff INHALATION RT-BID 09/13/13 12/09/18 History 250-50 Diskus] clonazePAM [KlonoPIN] 1 mg PO TID 09/13/13 12/09/18 History Ranitidine HCl [Zantac] 150 mg PO W/SUPPER 04/21/15 12/09/18 History Cetirizine HCl [Zyrtec] 10 mg PO QAM 05/11/16 12/09/18 History Albuterol Nebulized [Ventolin 2.5 mg INHALATION RT-QID PRN 07/12/16 12/09/18 History Nebulized] Atenolol [Tenormin] 12.5 mg PO QAM 07/12/16 12/09/18 History HYDROcodone/APAP 7.5-325MG [[place] 1 tab PO TID PRN 12/10/16 12/09/18 History 7.5-325] Montelukast [Singulair] 10 mg PO HS 12/10/16 12/09/18 History Umeclidinium [place] [Incruse 1 puff INHALATION RT-HS 12/10/16 12/09/18 History Ellipta] ARIPiprazole [Abilify] 5 mg PO HS 04/01/18 12/09/18 History diphenhydrAMINE HCL [Benadryl] 25 mg PO HS PRN 04/01/18 12/09/18 History Allergies Allergy/AdvReac Type Severity Reaction Status Date / Time codeine Allergy Anaphylaxis Verified 12/09/18 09:01 Iodinated Contrast- Oral and Allergy Anaphylaxis Verified 12/09/18 09:01 IV Dye [Iodinated Contrast Media - IV Dye] mold Allergy Anaphylaxis Verified 12/09/18 09:01 Penicillins Allergy Anaphylaxis Verified 12/09/18 09:01 morphine AdvReac Hallucinati Verified 12/09/18 09:01 ons Physical Exam Vitals: Vital Signs Temp Pulse Resp BP Pulse Ox 12/09/18 11:58 97.1 F L 83 22 129/96 95 12/09/18 10:47 84 18 132/99 95 12/09/18 08:13 97.8 F 82 20 127/91 96 Intake and Output 12/08/18 12/09/18 12/09/18 22:59 06:59 14:59 Other: Weight 52.163 kg - Constitutional General appearance: average body habitus, cooperative, disheveled, mild distress - EENT Eyes: EOMI, PERRLA, normal appearance ENT: normal oropharynx Ears: bilateral: normal - Neck Neck: lymphadenopathy Carotids: bilateral: upstroke normal Thyroid: bilateral: normal size - Respiratory Respiratory: bilateral: diminished, prolonged expiration, negative: CTA, dullness, rales, rhonchi, wheezing - Cardiovascular Rhythm: regular Heart sounds: normal: S1, S2 - Gastrointestinal General gastrointestinal: normal bowel sounds, soft - Neurologic Neurologic: CNII-XII intact - Musculoskeletal Musculoskeletal: generalized weakness, strength equal bilaterally - Psychiatric Psychiatric: A&O x's 3, appropriate affect, intact judgment & insight Right leg is the externally rotated Results - Laboratory Findings CBC and BMP: 12/09/18 11:00 12/09/18 11:00 Abnormal lab findings: Abnormal Labs 12/09/18 12/09/18 11:00 11:00 Hgb 11.3 L Neutrophils # 8.1 H Carbon Dioxide 33 H Assessment and Plan Assessment: Right hip fracture Status post fall Severe COPD oxygen dependent and nebulizer dependent Chronic hypoxic respiratory failure on 4 L oxygen Hypertension hypertensive cardiovascular disease Plan: Continue supplemental oxygen Breathing treatment Deep breathing exercise incentive spirometry Proceed with surgery as planned Time with Patient: Greater than 30
[2018-12-09] MEDS: ALBUTEROL NEBULIZED 2.5 MG/3 ML INHALATION PRN ×2 (12:43→20:18)
[2018-12-09] MEDS: HYDROmorphone 1 MG/ML 1 ML SYRINGE IVP PRN (13:49)
[2018-12-09] MEDS: NALOXONE 0.4 MG/ML 1 ML VIAL IV PRN ×2 (14:02→20:31)
[2018-12-09] MEDS: KETOROLAC 30 MG/ML 1 ML VIAL IVP SCH ×2 (14:16→23:00)
[2018-12-09] MEDS: IPRATROPIUM 0.5 MG/2.5 ML NEBU INHALATION SCH ×2 (15:36→20:17)
[2018-12-09] MEDS ORDERED: ALBUTEROL NEBULIZED 2.5 MG/3 ML INHALATION SCH (16:00)
[2018-12-09] MEDS: clonazePAM 1 MG TAB PO SCH ×2 (17:12→22:14)
[2018-12-09] MEDS ORDERED: NON FORMULARY DRUG (Ranitidine Hcl [Zantac] 150 MG) PO SCH (17:30)
[2018-12-09] MEDS: HEPARIN SODIUM,PORCINE 5,000 UNIT/ML 1 ML VIAL SQ SCH (17:34)
[2018-12-09 19:42] VITALS: BMI 21.0
[2018-12-09] MEDS ORDERED: SYMBICORT 80-4.5 MCG INHALER INHALATION SCH (20:00)
[2018-12-09] MEDS ORDERED: FUROSEMIDE 10 MG/ML 4 ML VIAL IV STA (20:10)
[2018-12-09 20:41] LABS: ABG Base Excess 4.6 mmol/L; ABG HCO3 31 mmol/L (21-25); ABG Oxygen Saturation 95.3 % (94-97); ABG PCO2 62 mmHg (35-45); ABG PH 7.31 (7.35-7.45); ABG PO2 78 mmHg (83-108); ABG TCO2 33 mmol/L (19-24); Allen Test Performed? Yes
[2018-12-09] MEDS ORDERED: diphenhydrAMINE 25 MG CAP PO PRN (21:00)
--- NOTE | 2018-12-09 21:10 | CT ---
EXAMINATION TYPE: CT brain wo con DATE OF EXAM: 12/09/2018 HISTORY: ams, unresponsive CT DLP: 1095.4 mGycm. Automated Exposure Control for Dose Reduction was Utilized. TECHNIQUE: CT scan of the head is performed without contrast. COMPARISON: CT brain April 01, 2018. FINDINGS: There is no acute intracranial hemorrhage or midline shift identified. Mild generalized b ilateral frontal lobe atrophy redemonstrated. No hydrocephalus. Some faint areas of hypodensity in th e peripheral white matter again seen, nonspecific findings. The globes are intact and the visualized sinuses are clear. IMPRESSION: No acute intracranial hemorrhage or midline shift. There is mild diffuse bilateral fron ramsey lobe atrophy and mild nonspecific white matter changes redemonstrated. No significant change fro m prior CT.
--- NOTE | 2018-12-09 21:15 | CT ---
EXAMINATION TYPE: CT chest wo con DATE OF EXAM: 12/09/2018 COMPARISON: CT chest July 06, 2017 HISTORY: SOB. ams. CT DLP: 262.9 mGycm. Automated Exposure Control for Dose Reduction was Utilized. TECHNIQUE: CT scan of the thorax is performed without IV contrast. FINDINGS: LUNGS: Background of fairly advanced underlying emphysematous change is redemonstrated. There is new small to tiny right pleural effusion. There is associated right basilar compressive atelectasis. Ther e is focal consolidation with air bronchograms involving the posterior aspect right middle lobe on cu rrent study some mild bilateral interstitial edema still present. . There is new more suspicious spic ulated nodule or nodular consolidation anterior aspect right upper lobe measuring 3.2 x 1.4 cm axial image 29. MEDIASTINUM: Lack of IV contrast is noted to limit evaluation for mediastinal and especially hilar ad enopathy. There are prominent but subcentimeter scattered thoracic lymph nodes. No cardiomegaly or pericardial effusion is seen. OTHER: Large dependent gallstone in gallbladder isn't demonstrated. Left-sided renal calculi partiall y imaged. Small hemangioma L1 level. IMPRESSION: Advanced emphysematous change with new small right pleural effusion and new right middle lobe pneumonia felt present. There is new suspicious spiculated nodule or nodular consolidation in th e right upper lobe image interval neoplasm cannot be excluded. Follow-up short-term contrast-enhanced chest CT and/or PET/CT is advised.
[2018-12-09 21:17] LABS: Glucose,Whole Blood 107 mg/dL (75-99)
[2018-12-09] MEDS: ARIPiprazole 5 MG TAB PO SCH (22:14)
[2018-12-09] MEDS: MONTELUKAST 10 MG TAB PO SCH (22:14)
[2018-12-09] MEDS: FAMOTIDINE 20 MG TAB PO SCH (22:15)
[2018-12-09] MEDS: LEVOFLOXACIN 500MG-D5W PMX 500 MG in DEXTROSE/WATER 1 100ML.BAG IVPB SCH (22:59)
[2018-12-09] MEDS: methylPREDNISolone SOD SUCCI 40 MG/ML 1 ML VIAL IV SCH (23:00)
[2018-12-09] MEDS: IPRATROPIUM-ALBUTEROL 3 ML NEB INHALATION PRN (23:10)
[2018-12-09] MEDS: BUDESONIDE 0.5 MG/2 ML NEBU INHALATION SCH (23:10)
--- NOTE | 2018-12-09 23:31 | HP ---
HISTORY AND PHYSICAL 63-year-old white female, comes to the hospital with right capital hip fracture after falling at home, history of 4 L oxygen on COPD for many years, history of plantar fasciitis. She came to us complaining of right hip and right wrist pain. X-ray of the wrist is negative. No head or neck pain, but she has been sleeping all day. She was found to be in respiratory distress tonight when I saw her with large amounts of phlegmy inspiratory and expiratory wheezes, at which time I ordered IV Lasix and transferred to ICU. CT scan of the chest done tonight shows a right middle lobe pneumonia for which IV Levaquin has been ordered. Updraft treatments are also been ordered. She already takes 4 L oxygen as she has end-stage COPD for many years. HOME MEDICINES: Include ProAir 2 puffs q.6 hours p.r.n., Lexapro 20 mg daily, Advair 250/50 one puff b.i.d., Klonopin 1 mg t.i.d., 150 with supper, Zyrtec 10 q.a.m., Tenormin 12.5 q.a.m., Singular 10 mg daily, Incruse Ellipta 1 puff daily, Abilify 5 mg daily, Benadryl 25 mg q.h.s. p.r.n. ALLERGIES: TO CODEINE, IODINE, PENICILLIN, MORPHINE. PAST SURGICAL HISTORY: Surgeries include: Adenoidectomy, tonsillectomy, tubal ligation, thoracotomy. PAST MEDICAL HISTORY: History of anxiety, depression, panic disorder. SOCIAL HISTORY: Former smoker. No alcohol. No illicit drugs. FAMILY HISTORY: Son malignant hyperthermia gene. Father coronary artery disease, myocardial infarction, renal disease. Mother with cancer and leukemia. PHYSICAL EXAMINATION: Temp 97.8, pulse 80-82, respiratory 20-22, blood pressure 127/91, oxygen 96% on room air. Cardiovascular: S1-S2. LUNGS: Scattered wheeze. Scattered rhonchi. HEMATOLOGY: Negative Homans. OPHTHALMOLOGIC: Pupils equal, round, react to light and accommodation. LUNGS show expiratory and inspiratory wheeze and wet sounding lungs. PSYCH: She is just murmuring. Not talking normal. Just very minimal speech at all. Does not focus. ASSESSMENT AND PLAN: 1. Acute hypoxemic respiratory failure, possible congestive heart failure on top of right-sided heart failure. 2. Chronic obstructive pulmonary disease exacerbation and possible pneumonia on CT scan. 3. Started Levaquin updrafts, IV Lasix x1. 4. ICU care, Dr. Vann. 5. Surgery is very high risk. 6. She wants to be DNR. That means NO VENTILATOR so maybe no surgery will be needed because she might need postop ventilating care for a few days, so possibly noninvasives treatment of the right hip fracture will be needed. 7. Please see further orders. MMODL / IJN: [id number] /
[2018-12-10] MEDS: methylPREDNISolone SOD SUCCI 40 MG/ML 1 ML VIAL IV SCH ×3 (00:30→16:49)
[2018-12-10] MEDS: HEPARIN SODIUM,PORCINE 5,000 UNIT/ML 1 ML VIAL SQ SCH ×3 (00:30→16:49)
[2018-12-10] MEDS: HYDROmorphone 1 MG/ML 1 ML SYRINGE IVP PRN (03:04)
[2018-12-10] MEDS: IPRATROPIUM-ALBUTEROL 3 ML NEB INHALATION PRN (03:10)
[2018-12-10 04:41] LABS: Basophils % (A) 0 %; Eosinophils # (A) 0.1 k/uL (0-0.7); Eosinophils % (A) 1 %; HCT 40.3 % (34.0-46.0); HGB 12.7 gm/dL (11.4-16.0); Lymphocytes % (A) 6 %; MCH 28.6 pg (25.0-35.0); MCHC 31.6 g/dL (31.0-37.0); MCV 90.5 fL (80.0-100.0); Mean Platelet Volume 7.3; Monocytes # (A) 0.5 k/uL (0-1.0); Monocytes % (A) 3 %; Neutrophils # (A) 16.3 k/uL (1.3-7.7); Neutrophils % (A) 91 %; Platelet Count 214 k/uL (150-450); RBC 4.45 m/uL (3.80-5.40); RDW 14.9 % (11.5-15.5); WBC 17.9 k/uL (3.8-10.6)
[2018-12-10 04:45] LABS: Albumin 3.6 g/dL (3.5-5.0); Calcium 8.9 mg/dL (8.4-10.2); Potassium 4.5 mmol/L (3.5-5.1); Total Bilirubin 1.2 mg/dL (0.2-1.3); Total Protein 6.4 g/dL (6.3-8.2)
[2018-12-10] MEDS: KETOROLAC 30 MG/ML 1 ML VIAL IVP SCH ×3 (05:15→18:42)
[2018-12-10 05:59] LABS: Glucose,Whole Blood 119 mg/dL (75-99)
--- NOTE | 2018-12-10 07:16 | XR ---
EXAMINATION TYPE: XR chest 1V portable DATE OF EXAM: 12/10/2018 Comparison: 04/01/2018 Clinical History: 63-year-old female with pneumonia Findings: Heart normal size. Atherosclerotic arch calcifications. Diffuse interstitial prominence and hyperinfl ation. Patchy airspace opacity peripheral right midlung and possible trace right effusion. Additional focal patchy right perihilar density. Impression: COPD with advanced emphysema and peripheral right midlung pneumonia. Additional irregular right perih ilar density described on CT of 12/09/2018. Refer to recommendations on that exam. Trace right effusio n.
[2018-12-10] MEDS ORDERED: IPRATROPIUM-ALBUTEROL 3 ML NEB INHALATION SCH (08:00)
[2018-12-10] MEDS: BUDESONIDE 0.5 MG/2 ML NEBU INHALATION SCH ×2 (08:30→19:17)
--- NOTE | 2018-12-10 09:07 | P.CNOR ---
History of Present Illness - HPI Consult date: 12/10/18 History of present illness: This is a 63-year-old female who was admitted after a fall. Patient sustained a fracture of the right hip after a fall at home. Patient's family is present at bedside. Patient was transferred to the ICU on 12/09/2018 for decreased mental status. Per nursing staff, the patient is more alert today. Patient is currently on 4 L of oxygen and normally is on oxygen at home for emphysema. Patient is also being treated for pneumonia. Patient's family states that the patient also complained of right wrist pain, but has not complained of any pain in the right wrist today. Patient's past medical history significant for asthma, COPD/emphysema, GERD, hypertension, osteoarthritis, pneumonia, and rheumatoid arthritis. Review of Systems See HPI. Past Medical History Past Medical History: Asthma, COPD, GERD/Reflux, Hypertension, Osteoarthritis (OA), Pneumonia, Respiratory Disorder, Rheumatoid Arthritis (RA), Skin Disorder Additional Past Medical History / Comment(s): BULLOUS EMPHYSEMA, end stage COPD uses O2 at 3L/NC continuous, arthritis-multiple joints, seizures as child, hiatal hernia, diarrhea, gallstones, kidney stones, eczema, History of Any Multi-Drug Resistant Organisms: None Reported Past Surgical History: Adenoidectomy, Tonsillectomy, Tubal Ligation Additional Past Surgical History / Comment(s): THORACOTOMY TO REMOVE BENIGN MASS NEAR RT LUNG, ESWLs, EGD/colonoscopy, laparoscopic surgery for bladder polyps Past Anesthesia/Blood Transfusion Reactions: Family History of Problems w/ Anesthesia, Family Hisory of Malignant Hyperthermia Additional Past Anesthesia/Blood Transfusion Reaction / Comm: The patients son carries the gene for malignant hyperthermia but has not had a reaction to anesthesia. Pt has not had reaction to anesthesia or been tested herself. Past Psychological History: Anxiety, Depression, Panic Disorder Smoking Status: Former smoker Past Alcohol Use History: None Reported Past Drug Use History: None Reported - Past Family History Son(s) Additional Family Medical History / Comment(s): carries the gene for malignant hyperthermia. He had had anethesia without and reaction Father Family Medical History: Coronary Artery Disease (CAD), Myocardial Infarction ([place]), Renal Disease Additional Family Medical History / Comment(s): Father of a [place] at the age of 59yrs. Mother Family Medical History: Cancer Additional Family Medical History / Comment(s): Mother of leukemia at the age of 57yrs. Brother(s) Family Medical History: Cancer Additional Family Medical History / Comment(s): Brother of bladder cancer at the age of 50yrs. Medications and Allergies Home Medications Medication Instructions Recorded Confirmed Type Albuterol Sulfate [Proair Hfa] 2 puff INHALATION RT-Q6H PRN 09/13/13 12/09/18 History Escitalopram [Lexapro] 20 mg PO DAILY 09/13/13 12/09/18 History Fluticasone Propionate [Flonase] 1 spray EA NOSTRIL DAILY PRN 09/13/13 12/09/18 History Fluticasone/Salmeterol [Advair 1 puff INHALATION RT-BID 09/13/13 12/09/18 History 250-50 Diskus] clonazePAM [KlonoPIN] 1 mg PO TID 09/13/13 12/09/18 History Ranitidine HCl [Zantac] 150 mg PO W/SUPPER 04/21/15 12/09/18 History Cetirizine HCl [Zyrtec] 10 mg PO QAM 05/11/16 12/09/18 History Albuterol Nebulized [Ventolin 2.5 mg INHALATION RT-QID PRN 07/12/16 12/09/18 History Nebulized] Atenolol [Tenormin] 12.5 mg PO QAM 07/12/16 12/09/18 History HYDROcodone/APAP 7.5-325MG [[place] 1 tab PO TID PRN 12/10/16 12/09/18 History 7.5-325] Montelukast [Singulair] 10 mg PO HS 12/10/16 12/09/18 History Umeclidinium [place] [Incruse 1 puff INHALATION RT-HS 12/10/16 12/09/18 History Ellipta] ARIPiprazole [Abilify] 5 mg PO HS 04/01/18 12/09/18 History diphenhydrAMINE HCL [Benadryl] 25 mg PO HS PRN 04/01/18 12/09/18 History Allergies Allergy/AdvReac Type Severity Reaction Status Date / Time codeine Allergy Anaphylaxis Verified 12/09/18 19:43 Iodinated Contrast- Oral and Allergy Anaphylaxis Verified 12/09/18 19:43 IV Dye [Iodinated Contrast Media - IV Dye] latex Allergy Rash/Hives Verified 12/09/18 19:43 mold Allergy Anaphylaxis Verified 12/09/18 19:43 Penicillins Allergy Anaphylaxis Verified 12/09/18 19:43 morphine AdvReac Hallucinati Verified 12/09/18 19:43 ons Physical Examination On exam patient is resting comfortably in bed in no acute distress. Patient has difficulty following commands during physical exam, but is alert. The right lower extremity is warm and well perfused. Calf is soft and nontender to palpation. Dorsalis pedis pulses 2+. Skin is intact. There is no erythema or ecchymosis. There is no swelling of the right wrist. Sensation is intact. Neurovascular status and circulatory status are intact. Results X-rays of the right hip and pelvis show a subcapital fracture of the right femur. X-rays of the right wrist are negative for any fracture or dislocation. - Labs Labs: Abnormal Lab Results - Last 24 Hours (Table) 12/09/18 12/09/18 12/09/18 Range/Units 11:00 11:00 20:35 WBC (3.8-10.6) k/uL Hgb 11.3 L (11.4-16.0) gm/dL Neutrophils # 8.1 H (1.3-7.7) k/uL ABG pH 7.31 L (7.35-7.45) ABG pCO2 62 H (35-45) mmHg ABG pO2 78 L (83-108) mmHg ABG HCO3 31 H (21-25) mmol/L ABG Total CO2 33 H (19-24) mmol/L Carbon Dioxide 33 H (22-30) mmol/L BUN (7-17) mg/dL Glucose (74-99) mg/dL POC Glucose (mg/dL) (75-99) mg/dL 12/09/18 12/10/18 12/10/18 Range/Units 21:06 04:13 04:13 WBC 17.9 H (3.8-10.6) k/uL Hgb (11.4-16.0) gm/dL Neutrophils # 16.3 H (1.3-7.7) k/uL ABG pH (7.35-7.45) ABG pCO2 (35-45) mmHg ABG pO2 (83-108) mmHg ABG HCO3 (21-25) mmol/L ABG Total CO2 (19-24) mmol/L Carbon Dioxide (22-30) mmol/L BUN 24 H (7-17) mg/dL Glucose 119 H (74-99) mg/dL POC Glucose (mg/dL) 107 H (75-99) mg/dL 12/10/18 Range/Units 05:47 WBC (3.8-10.6) k/uL Hgb (11.4-16.0) gm/dL Neutrophils # (1.3-7.7) k/uL ABG pH (7.35-7.45) ABG pCO2 (35-45) mmHg ABG pO2 (83-108) mmHg ABG HCO3 (21-25) mmol/L ABG Total CO2 (19-24) mmol/L Carbon Dioxide (22-30) mmol/L BUN (7-17) mg/dL Glucose (74-99) mg/dL POC Glucose (mg/dL) 119 H (75-99) mg/dL H & H 12/09/18 12/10/18 Range/Units 11:00 04:13 Hgb 11.3 L 12.7 (11.4-16.0) gm/dL Hct 35.3 40.3 (34.0-46.0) % Result Diagrams: 12/10/18 04:13 12/10/18 04:13 Assessment and Plan Assessment: Asthma COPD/emphysema GERD Hypertension Osteoarthritis Pneumonia Rheumatoid arthritis Plan: 1. Nonweightbearing to the right lower extremity. 2. Continue pain control. 3. Patient would benefit from right hip hemiarthroplasty for right hip f racture. No surgical intervention is planned at this time. Patient is currently not medically cleared to undergo surgery, per internal medicine. Will continue to follow the patient closely.
[2018-12-10] MEDS: clonazePAM 1 MG TAB PO SCH ×3 (09:12→20:50)
[2018-12-10] MEDS: ATENOLOL 12.5 MG TAB PO SCH (09:13)
[2018-12-10] MEDS: FAMOTIDINE 20 MG TAB PO SCH ×2 (09:13→20:38)
[2018-12-10] MEDS: LORATADINE 10 MG TAB PO SCH (09:13)
[2018-12-10] MEDS ORDERED: ALBUTEROL NEBULIZED 2.5 MG/3 ML INHALATION PRN (10:00)
[2018-12-10 12:04] LABS: Glucose,Whole Blood 119 mg/dL (75-99)
[2018-12-10] MEDS: ALBUTEROL NEBULIZED 2.5 MG/3 ML INHALATION SCH ×4 (12:17→19:17)
--- NOTE | 2018-12-10 13:22 | P.CNNES ---
History of Present Illness Consult date: 12/10/18 Requesting physician: Rosa Logan Reason for Consult: Acute weakness Chief complaint: Arms and legs suddenly weak s/p fall History of Present Illness: This is a 63 RH female who had a fall yesterday and landed on her right side. She did bump her head but CTH did not show anything acute. Now she is diffusely weak and can barely move all four extremities. She was discovered to have fractured her right hip. She has a urinary catheter in. Denies any spinal pain. is concerned about the use of Dilaudid yesterday that may be confounding her clinical picture as she also appears to be less responsive than usual. He states that prior to yesterday, she was able to walk. No report of ptosis, facial droop or bulbar symptoms. No other focal neuro c/o. Review of Systems I have performed a 14-point organ ROS with patient; pertinents are as per HPI. Past Medical History Past Medical History: Asthma, COPD, GERD/Reflux, Hypertension, Osteoarthritis (OA), Pneumonia, Respiratory Disorder, Rheumatoid Arthritis (RA), Skin Disorder Additional Past Medical History / Comment(s): BULLOUS EMPHYSEMA, end stage COPD uses O2 at 3L/NC continuous, arthritis-multiple joints, seizures as child, hiatal hernia, diarrhea, gallstones, kidney stones, eczema, History of Any Multi-Drug Resistant Organisms: None Reported Past Surgical History: Adenoidectomy, Tonsillectomy, Tubal Ligation Additional Past Surgical History / Comment(s): THORACOTOMY TO REMOVE BENIGN MASS NEAR RT LUNG, ESWLs, EGD/colonoscopy, laparoscopic surgery for bladder polyps Past Anesthesia/Blood Transfusion Reactions: Family History of Problems w/ Anesthesia, Family Hisory of Malignant Hyperthermia Additional Past Anesthesia/Blood Transfusion Reaction / Comment(s): The patients son carries the gene for malignant hyperthermia but has not had a reaction to anesthesia. Pt has not had reaction to anesthesia or been tested herself. Past Psychological History: Anxiety, Depression, Panic Disorder Smoking Status: Former smoker Past Alcohol Use History: None Reported Past Drug Use History: None Reported - Past Family History Son(s) Additional Family Medical History / Comment(s): carries the gene for malignant hyperthermia. He had had anethesia without and reaction Father Family Medical History: Coronary Artery Disease (CAD), Myocardial Infarction ([place]), Renal Disease Additional Family Medical History / Comment(s): Father of a [place] at the age of 59yrs. Mother Family Medical History: Cancer Additional Family Medical History / Comment(s): Mother of leukemia at the age of 57yrs. Brother(s) Family Medical History: Cancer Additional Family Medical History / Comment(s): Brother of bladder cancer at the age of 50yrs. Medications and Allergies Home Medications Medication Instructions Recorded Confirmed Type Albuterol Sulfate [Proair Hfa] 2 puff INHALATION RT-Q6H PRN 09/13/13 12/09/18 History Escitalopram [Lexapro] 20 mg PO DAILY 09/13/13 12/09/18 History Fluticasone Propionate [Flonase] 1 spray EA NOSTRIL DAILY PRN 09/13/13 12/09/18 History Fluticasone/Salmeterol [Advair 1 puff INHALATION RT-BID 09/13/13 12/09/18 History 250-50 Diskus] clonazePAM [KlonoPIN] 1 mg PO TID 09/13/13 12/09/18 History Ranitidine HCl [Zantac] 150 mg PO W/SUPPER 04/21/15 12/09/18 History Cetirizine HCl [Zyrtec] 10 mg PO QAM 05/11/16 12/09/18 History Albuterol Nebulized [Ventolin 2.5 mg INHALATION RT-QID PRN 07/12/16 12/09/18 History Nebulized] Atenolol [Tenormin] 12.5 mg PO QAM 07/12/16 12/09/18 History HYDROcodone/APAP 7.5-325MG [[place] 1 tab PO TID PRN 12/10/16 12/09/18 History 7.5-325] Montelukast [Singulair] 10 mg PO HS 12/10/16 12/09/18 History Umeclidinium [place] [Incruse 1 puff INHALATION RT-HS 12/10/16 12/09/18 History Ellipta] ARIPiprazole [Abilify] 5 mg PO HS 04/01/18 12/09/18 History diphenhydrAMINE HCL [Benadryl] 25 mg PO HS PRN 04/01/18 12/09/18 History Allergies Allergy/AdvReac Type Severity Reaction Status Date / Time codeine Allergy Anaphylaxis Verified 12/09/18 19:43 Iodinated Contrast- Oral and Allergy Anaphylaxis Verified 12/09/18 19:43 IV Dye [Iodinated Contrast Media - IV Dye] latex Allergy Rash/Hives Verified 12/09/18 19:43 mold Allergy Anaphylaxis Verified 12/09/18 19:43 Penicillins Allergy Anaphylaxis Verified 12/09/18 19:43 morphine AdvReac Hallucinati Verified 12/09/18 19:43 ons Physical Examination - Vital Signs Vital Signs: Vital Signs Temp Pulse Pulse Resp BP BP Pulse Ox 12/10/18 12:35 92 12/10/18 12:23 92 12/10/18 12:07 24 12/10/18 12:00 96 24 145/93 95 12/10/18 11:00 83 31 H 134/82 96 12/10/18 10:00 110 H 38 H 138/93 92 L 12/10/18 09:00 120 H 36 H 133/94 93 L 12/10/18 08:40 121 H 12/10/18 08:30 120 H 12/10/18 08:15 88 36 H 12/10/18 08:00 98.6 F 120 H 27 H 140/87 93 L 12/10/18 07:00 114 H 31 H 135/87 92 L 12/10/18 06:00 117 H 30 H 145/99 91 L 12/10/18 05:00 108 H 24 156/99 92 L 12/10/18 04:00 97 26 H 90/68 94 L 12/10/18 03:21 95 12/10/18 03:10 102 H 12/10/18 03:00 103 H 29 H 114/80 91 L 12/10/18 02:00 111 H 23 127/91 90 L 12/10/18 01:00 118 H 32 H 109/81 92 L 12/10/18 00:30 118 H 34 H 122/87 91 L 12/10/18 00:00 97.8 F 116 H 33 H 120/87 92 L 12/09/18 23:30 113 H 31 H 133/96 92 L 12/09/18 23:20 110 H 12/09/18 23:10 114 H 12/09/18 23:00 115 H 31 H 123/85 91 L 12/09/18 22:30 112 H 33 H 150/93 92 L 12/09/18 22:00 115 H 31 H 148/92 91 L 12/09/18 21:30 118 H 32 H 145/97 91 L 12/09/18 20:32 98 12/09/18 20:31 24 12/09/18 20:18 94 12/09/18 20:00 98.6 F 88 24 133/84 99 12/09/18 15:47 88 12/09/18 15:36 88 12/09/18 14:25 98.3 F 100 20 150/78 94 L 12/09/18 14:15 96.8 F L 99 24 129/96 94 L 12/09/18 14:02 12 Intake and Output 12/09/18 12/10/18 12/10/18 22:59 06:59 14:59 Intake Total 50 400 300 Output Total 350 335 115 Balance -300 65 185 Intake: IV 50 400 300 Sodium Chloride 0.9% 1, 50 400 300 000 ml @ 50 mls/hr IV . Q20H ZAYDA Rx#:[id number] Output: Urine 350 335 115 Other: Voiding Method Indwelling Catheter Indwelling Catheter Indwelling Catheter # Voids 2 2 Gen NAD Pleasant and cooperative HEENT NCAT Sclera without icterus O/P clear Neck Supple No carotid bruit Cor RRR no m/r/g Lungs CTAB Abd Soft NTND +BS Ext Warm to touch No edema Neuro MS A+Ox2 Slow and hesitant speech but able to follow basic commands CN PERRL VFF no APD EOMI no nystagmus or TYREE No facial asymmetry or ptosis Masseter's symmetric Hearing intact to normal voice bilaterally Speech not dysarthric Equal elevation of palate Tongue midline Sym shrug and SCM bilaterally Motor Normal bulk/tone No tremors Flicker of movements in all 4 extremities 0- 1/5 throughout Sens Intact to LT x4 Coord Cannto test due to motor weakness DTRs 2+/4 sym throughout Toes downgoing bilaterally No clonus at achilles Gait Deferred Results - Laboratory Findings CBC and BMP: 12/10/18 04:13 12/10/18 04:13 Abnormal Lab Findings: Abnormal Labs 12/09/18 12/09/18 12/09/18 11:00 11:00 20:35 WBC Hgb 11.3 L Neutrophils # 8.1 H ABG pH 7.31 L ABG pCO2 62 H ABG pO2 78 L ABG HCO3 31 H ABG Total CO2 33 H Carbon Dioxide 33 H BUN Glucose POC Glucose (mg/dL) 12/09/18 12/10/18 12/10/18 21:06 04:13 04:13 WBC 17.9 H Hgb Neutrophils # 16.3 H ABG pH ABG pCO2 ABG pO2 ABG HCO3 ABG Total CO2 Carbon Dioxide BUN 24 H Glucose 119 H POC Glucose (mg/dL) 107 H 12/10/18 12/10/18 05:47 11:52 WBC Hgb Neutrophils # ABG pH ABG pCO2 ABG pO2 ABG HCO3 ABG Total CO2 Carbon Dioxide BUN Glucose POC Glucose (mg/dL) 119 H 119 H - Diagnostic Findings Additional findings: CT Head wo cont 12/10/18. No ICH. Some cerebral atrophy. Nil acute. I have reviewed neuroimages myself. Assessment and Plan Assessment: Acute BU&LE weakness. May be confounded by opiates, but given her recent h/o trauma, need to r/o cord compression. Her robust DTRs argue against a peripheral process such as GBS or MG. Plan: -MRI C-spine wo arnulfo ordered to be done urgently. I have asked [employer] to follow up with MRI to try to get the study done TIANA -Minimize sedation -Medical management/COPD -She will also need hip surgery soon per ortho -Will follow up -d/w patient and in detail. All questions answered. Thank you for this consultation. Time with Patient: Greater than 30 (Time spent in direct patient care, greater than 50% of which was spent in [id number] counseling and coordination of care: 70 minutes)
[2018-12-10] MEDS: ESCITALOPRAM 20 MG TAB PO SCH (15:49)
[2018-12-10] MEDS ORDERED: LORazepam 2 MG/ML INJ IV STA (16:42)
--- NOTE | 2018-12-10 18:24 | MR ---
EXAMINATION TYPE: MR cervical spine wo con DATE OF EXAM: 12/10/2018 COMPARISON: 09/18/2013 HISTORY: Acute BU LE weakness s/p fall r/o cord compression TECHNIQUE: Multiplanar, multisequence images of the cervical spine were acquired. Cervical vertebra have normal alignment. Disc spaces appear normal for age. There is no evidence of c ompression fracture. The posterior elements are intact. There is mild facet arthropathy in the mid an d lower cervical spine. There is minimal posterior disc bulging from C3 to C7 without significant enc roachment on the spinal canal. There is developmentally small spinal canal. Canal measures 8 mm at th e narrowest point at C3-4 and also C6-7. Cervical spinal cord shows normal signal pattern without luc dence of edema. Brainstem appears intact. IMPRESSION: Multilevel posterior mild disc bulging. There is increased posterior disc bulging at C3-4 compared to old exam and the canal is narrowed to 8 mm. No cord edema. No significant spinal stenosis.
[2018-12-10] MEDS: SODIUM CHLORIDE 0.9% 1,000 ML IV SCH (18:46)
[2018-12-10] MEDS ORDERED: hydrALAZINE HCL 20 MG/ML 1 ML VIAL IVP PRN (19:12)
[2018-12-10] MEDS: MONTELUKAST 10 MG TAB PO SCH (20:38)
[2018-12-10] MEDS: ARIPiprazole 5 MG TAB PO SCH (20:38)
[2018-12-10] MEDS: LEVOFLOXACIN 500MG-D5W PMX 500 MG in DEXTROSE/WATER 1 100ML.BAG IVPB SCH (21:04)
[2018-12-10] MEDS ORDERED: HYDROmorphone 0.5 MG/0.5 ML SYRINGE IVP PRN (22:59)
--- NOTE | 2018-12-10 23:23 | PN ---
PROGRESS NOTE SUBJECTIVE: This 63-year-old white female comes in with right subcapital hip fracture. She is DNR and she does not want to be on a ventilator. Surgery is not being advised for her per myself and Orthopedics, and she has high risk of going on a ventilator and she is DNR, so this is not a good idea. She is more alert today. Pain sedation and pain medicine given in the ER has been withdrawn. She remains on heparin and Dilaudid for severe pain, but she is more alert today. Her breathing is greatly improved with Lasix, updraft treatments. Home medications been reordered. White count 17.9, sodium 140, potassium 4.5. Speech is minimal. She is unable to swallow pills, but she is talking a little bit more today. Cardiovascular S1-S2. Lungs show mild wheeze, severe rhonchi and rales from yesterday are gone. She is not moving her arms very much so neurology was consulted and ordered a cervical spine MRI which impression shows multilevel posterior mild disk bulging. No cord edema. No spinal stenosis. I suspect her altered mental status and moving extremities was very diminished secondary to narcotic overdose in the ER. She will continue with medical therapy and she will need [facility]. ICU time 60 minutes. MMODL / IJN: [id number] /
[2018-12-11 00:03] LABS: Glucose,Whole Blood 141 mg/dL (75-99)
[2018-12-11] MEDS: KETOROLAC 30 MG/ML 1 ML VIAL IVP SCH ×4 (00:39→18:57)
[2018-12-11] MEDS: HEPARIN SODIUM,PORCINE 5,000 UNIT/ML 1 ML VIAL SQ SCH ×3 (00:39→18:58)
[2018-12-11] MEDS: methylPREDNISolone SOD SUCCI 40 MG/ML 1 ML VIAL IV SCH ×3 (00:39→18:58)
[2018-12-11 05:09] LABS: Basophils # (A) 0.1 k/uL (0-0.2); Basophils % (A) 1 %; Eosinophils # (A) 0.1 k/uL (0-0.7); Eosinophils % (A) 1 %; HCT 36.7 % (34.0-46.0); Lymphocytes % (A) 7 %; MCH 29.3 pg (25.0-35.0); MCHC 32.6 g/dL (31.0-37.0); MCV 89.7 fL (80.0-100.0); Mean Platelet Volume 7.8; Monocytes # (A) 0.4 k/uL (0-1.0); Monocytes % (A) 3 %; Neutrophils # (A) 12.5 k/uL (1.3-7.7); Neutrophils % (A) 89 %; Platelet Count 220 k/uL (150-450); RBC 4.09 m/uL (3.80-5.40); RDW 15.5 % (11.5-15.5); WBC 14.2 k/uL (3.8-10.6)
[2018-12-11 05:13] LABS: ALT 34 U/L (9-52); AST 67 U/L (14-36); African American GFR (CKD) >90 (>60 ml/min/1.73 sqM); Albumin 3.6 g/dL (3.5-5.0); Alkaline Phosphatase 190 U/L (38-126); Anion Gap 13 mmol/L; Blood Urea Nitrogen 42 mg/dL (7-17); Calcium 9.1 mg/dL (8.4-10.2); Carbon Dioxide 22 mmol/L (22-30); Chloride 104 mmol/L (98-107); Glucose 129 mg/dL (74-99); Magnesium 1.9 mg/dL (1.6-2.3); Phosphorus 2.9 mg/dL (2.5-4.5); Potassium 4.4 mmol/L (3.5-5.1); Sodium 139 mmol/L (137-145); Total Bilirubin 0.8 mg/dL (0.2-1.3); Total Protein 6.2 g/dL (6.3-8.2)
[2018-12-11] MEDS: SODIUM CHLORIDE 0.9% 1,000 ML IV SCH (05:41)
[2018-12-11 05:59] LABS: Glucose,Whole Blood 125 mg/dL (75-99)
--- NOTE | 2018-12-11 06:37 | XR ---
EXAMINATION TYPE: XR chest 1V portable DATE OF EXAM: 12/11/2018 CLINICAL HISTORY: Difficulty breathing progress study. TECHNIQUE: Single AP portable semiupright view of the chest is obtained. COMPARISON: Chest x-ray from one day earlier. CT chest from 2 days earlier. FINDINGS: There is background chronic emphysematous change with persistent right mid lung opacity. L eft lung remains clear. No new pleural effusion or pneumothorax is seen. Cardiac silhouette size wayne ins within normal limits with atherosclerotic thoracic aorta. Osseous structures are intact. IMPRESSION: Overall stable findings, chronic emphysematous change with persistent multilobar right mid lung acute infiltrate. No new infiltrate is seen.
[2018-12-11] MEDS: ALBUTEROL NEBULIZED 2.5 MG/3 ML INHALATION SCH ×4 (08:04→19:25)
[2018-12-11] MEDS: BUDESONIDE 0.5 MG/2 ML NEBU INHALATION SCH ×2 (08:05→19:25)
[2018-12-11] MEDS: FUROSEMIDE 10 MG/ML 2 ML VIAL IV SCH (09:11)
[2018-12-11] MEDS: FAMOTIDINE 20 MG/2 ML VIAL IV SCH ×2 (09:11→21:04)
[2018-12-11] MEDS: clonazePAM 1 MG TAB PO SCH ×2 (11:14→18:58)
[2018-12-11] MEDS: LORATADINE 10 MG TAB PO SCH (11:14)
[2018-12-11] MEDS: ATENOLOL 12.5 MG TAB PO SCH (11:14)
[2018-12-11] MEDS: ESCITALOPRAM 20 MG TAB PO SCH (11:15)
--- NOTE | 2018-12-11 15:01 | P.PN ---
Subjective Progress Note Date: 12/11/18 Principal diagnosis: BU&LE weakness MRI C-spine. Patient improving slowly per RN and . No new neuro c/o. Objective - Vital Signs Vital signs: Vital Signs Temp 97.8 F 12/11/18 12:00 Pulse 101 H 12/11/18 14:00 Resp 35 H 12/11/18 14:00 BP 136/81 12/11/18 14:00 Pulse Ox 96 12/11/18 14:00 Intake & Output 12/10/18 12/11/18 12/11/18 18:59 06:59 18:59 Intake Total 650 550 400 Output Total 296 335 925 Balance 354 215 -525 Weight 55.7 kg Intake: IV 650 550 400 Sodium Chloride 0.9% 1, 650 550 400 000 ml @ 50 mls/hr IV . Q20H [facility] Rx#:[id number] Output: Urine 296 335 925 Other: Voiding Method Indwelling Catheter Indwelling Catheter Indwelling Catheter # Voids 2 - Exam Gen NAD pleasant and cooperative MS More alert oriented x3 Able to follow all commands CN II-XII grossly intact no nystagmus Motor Normal bulk/tone No tremors Little volitional movements but on noxious stim she does appear to move more but overall 1/5 strength throughout on confrontation Sens Intact to nailbed stim x4 Coord Unable to test due to motor weakness DTRs 2+/4 sym throughout Gait Deferred - Labs CBC & Chem 7: 12/11/18 04:33 12/11/18 04:33 Labs: Abnormal Lab Results - Last 24 Hours (Table) 12/10/18 12/11/18 12/11/18 Range/Units 23:50 04:33 04:33 WBC 14.2 H (3.8-10.6) k/uL Neutrophils # 12.5 H (1.3-7.7) k/uL BUN 42 H (7-17) mg/dL Glucose 129 H (74-99) mg/dL POC Glucose (mg/dL) 141 H (75-99) mg/dL AST 67 H (14-36) U/L Alkaline Phosphatase 190 H (38-126) U/L Total Protein 6.2 L (6.3-8.2) g/dL 12/11/18 Range/Units 05:48 WBC (3.8-10.6) k/uL Neutrophils # (1.3-7.7) k/uL BUN (7-17) mg/dL Glucose (74-99) mg/dL POC Glucose (mg/dL) 125 H (75-99) mg/dL AST (14-36) U/L Alkaline Phosphatase (38-126) U/L Total Protein (6.3-8.2) g/dL Microbiology - Last 24 Hours (Table) 12/10/18 00:56 Blood Culture - Preliminary Blood No Growth after 24 hours 12/10/18 12:44 Urine Culture - Preliminary Urine,Catheterized - Imaging and Cardiology MRI C-spine wo arnulfo 12/10/18. Multilevel posterior mild disc bulging. There is increased posterior disc bulging at C3-C4 but without central stenosis or cord compression. I have reviewed neuroimages myself. Assessment and Plan Assessment: Acute BU&LE weakness, possibly due to opiates. Question of level of participation on motor exam. No evidence of acute myelopathy. No S+S of acute neuromuscular disorders such as MG or GBS. In short, I do not see an acute primary neurological explanation to explain her debility. Plan: -MRI C-spine wo arnulfo results reviewed with patient and family in detail -Minimize sedation -Patient has severe COPD, is a no code and will not be undergoing hip surgery -PT/OT as tolerated -d/w patient, and RN in detail. All questions answered -No other inpatient neuro recs at this time. Will revisit patient prn. Please call with new ?. Thank you again for this consultation. Time with Patient: Less than 30 (Time spent in direct patient care, greater than 50% of which was spent in [id number] counseling and coordination of care: 25 minutes)
--- NOTE | 2018-12-11 16:55 | CDI ---
Documentation Clarification Form Date: 12/11/2018 4:16:00 PM From: Mana Preciado RN, CCDS Admit Date: 12/09/2018 10:27:00 AM Patient Name: Shanelle Eubanks Visit Number: [id number] Discharge Date: ATTENTION: The Clinical Documentation Specialists (CDI) and [facility] Coding Staff appreciate your assistance in clarifying documentation. Please respond to the clarification below the line at the bottom and electronically sign. The CDI & [facility] Coding staff will review the response and follow-up if needed. Please note: Queries are made part of the Legal Health Record. If you have any questions, please contact the author of this message via ITS. Dr. Chris Aguilar "Altered Mental Status and moving extremities was very diminished secondary to narcotic overdose in the ER" was documented in the progress note on 12/10/18 and further clarification is needed. History/Risk Factors: End Stage COPD, Asthma, Hypertension Rheumatoid Arthritis, Home O2 3/L NC, Former smoker Clinical Indicators: 63-year-old female present with pain to her right hip and right wrist after a fall at home. She was evaluated and was noted to be somewhat lethargic. H/P notes she is just murmuring, Not talking normal. Just very minimal speech Vital signs on admission: 127/91 82 20 97.8 Labs: WBC 10.1, 17.9 X Ray: Subcapital right hip fracture. CT Brain: No acute intracranial hemorrhage or midline shift. There is mild diffuse bilateral frontal lobe atrophy and mild nonspecific white matter changes redemonstrated. Treatment: Neuro checks per protocol Monitor VS, CBC, Lytes In your professional opinion, please clarify the etiology of the Altered Mental Status, if known. Toxic Encephalopathy due to narcotic overdose Dementia (if know, specify Type and if with/without Behavioral Disturbance) Other condition (please specify) Unable to determine (Last Revision: June 2017) MTDD
[2018-12-11 18:15] LABS: Glucose,Whole Blood 123 mg/dL (75-99)
--- NOTE | 2018-12-11 18:54 | P.PN ---
Subjective Progress Note Date: 12/10/18 (Critical care time spent 35 minutes) Principal diagnosis: Right hip fracture Status post fall Severe COPD oxygen dependent and nebulizer dependent Chronic hypoxic respiratory failure on 4 L oxygen Hypertension hypertensive cardiovascular disease 12/10/2018, patient has been seen eval reexamined today the ICU and Developed progressive respiratory failure with hypercapnia thought to be related to narcotics discussed with patient in length about using the BiPAP machine labs reviewed medications reviewed ABG reviewed, patient considered to be a poor surgical candidate, CT chest finding reviewed and noted critical care spent 35 minutes This is a 63-year-old female well-known to me for long-standing history of COPD which is severe in nature patient is on 4 L nasal cannula oxygen also on bronchodilator therapy she has stopped smoking now for the last several weeks, she has been doing fairly well except that she fell down and developed right hip fracture for which she was brought into emergency department, orthopedic surgery has been consulted, however patient likely will require surgery for the right hip fracture Objective - Vital Signs Vital signs: Vital Signs Temp 98.6 F 12/10/18 08:00 Pulse 97 12/10/18 19:33 Resp 24 12/10/18 19:00 BP 148/95 12/10/18 19:00 Pulse Ox 95 12/10/18 19:00 Intake & Output 12/10/18 12/10/18 12/11/18 06:59 18:59 06:59 Intake Total 450 650 Output Total 685 296 Balance -235 354 Intake: IV 450 650 Sodium Chloride 0.9% 1, 450 650 000 ml @ 50 mls/hr IV . Q20H [facility] Rx#:[id number] Output: Urine 685 296 Other: Voiding Method Indwelling Catheter Indwelling Catheter # Voids 2 2 - Exam - Constitutional General appearance: average body habitus, cooperative, disheveled, mild distress - EENT Eyes: EOMI, PERRLA, normal appearance ENT: normal oropharynx Ears: bilateral: normal - Neck Neck: lymphadenopathy Carotids: bilateral: upstroke normal Thyroid: bilateral: normal size - Respiratory Respiratory: bilateral: diminished, prolonged expiration, negative: CTA, dullness, rales, rhonchi, wheezing - Cardiovascular Rhythm: regular Heart sounds: normal: S1, S2 - Gastrointestinal General gastrointestinal: normal bowel sounds, soft - Neurologic Neurologic: CNII-XII intact - Musculoskeletal Musculoskeletal: generalized weakness, strength equal bilaterally - Psychiatric Psychiatric: A&O x's 2, appropriate affect, intact judgment & insight somewhat slow to respond but waking up progressively Right leg is the externally rotated - Labs CBC & Chem 7: 12/11/18 04:33 12/11/18 04:33 Labs: Abnormal Lab Results - Last 24 Hours (Table) 12/10/18 12/10/18 12/10/18 Range/Units 04:13 04:13 05:47 WBC 17.9 H (3.8-10.6) k/uL Neutrophils # 16.3 H (1.3-7.7) k/uL BUN 24 H (7-17) mg/dL Glucose 119 H (74-99) mg/dL POC Glucose (mg/dL) 119 H (75-99) mg/dL 12/10/18 Range/Units 11:52 WBC (3.8-10.6) k/uL Neutrophils # (1.3-7.7) k/uL BUN (7-17) mg/dL Glucose (74-99) mg/dL POC Glucose (mg/dL) 119 H (75-99) mg/dL Microbiology - Last 24 Hours (Table) 12/10/18 12:44 Urine Culture - Preliminary Urine,Catheterized Assessment and Plan Assessment: Altered mental status Acute hypoxic and hypercapnic respiratory failure Developing pneumonia and right midlung field Right hip fracture Status post fall Severe COPD oxygen dependent and nebulizer dependent Chronic hypoxic respiratory failure on 4 L oxygen Hypertension hypertensive cardiovascular disease Plan: Continue broad-spectrum antibiotics IV steroids Continue supplemental oxygen Breathing treatment Deep breathing exercise incentive spirometry Orthopedic service surgery is on hold Time with Patient: Greater than 30
--- NOTE | 2018-12-11 18:57 | P.PN ---
Subjective Progress Note Date: 12/11/18 Principal diagnosis: Right hip fracture Status post fall Severe COPD oxygen dependent and nebulizer dependent Chronic hypoxic respiratory failure on 4 L oxygen Hypertension hypertensive cardiovascular disease 12/11/2018, patient seen and evaluated examined in the ICU more awake now oriented 3 MrMike short of breath tachypneic but severity has improved patient remains on broad-spectrum antibiotics IV steroids and breathing treatment she did use BiPAP almost 4 4-1/2 hour to 5 hour, which seems to be helping chest x- ray findings reviewed remains stable reviewed neurological finding 12/10/2018, patient has been seen eval reexamined today the ICU and Developed progressive respiratory failure with hypercapnia thought to be related to narcotics discussed with patient in length about using the BiPAP machine labs reviewed medications reviewed ABG reviewed, patient considered to be a poor surgical candidate, CT chest finding reviewed and noted critical care spent 35 minutes This is a 63-year-old female well-known to me for long-standing history of COPD which is severe in nature patient is on 4 L nasal cannula oxygen also on bronchodilator therapy she has stopped smoking now for the last several weeks, she has been doing fairly well except that she fell down and developed right hip fracture for which she was brought into emergency department, orthopedic surgery has been consulted, however patient likely will require surgery for the right hip fracture Objective - Vital Signs Vital signs: Vital Signs Temp 97.8 F 12/11/18 12:00 Pulse 106 H 12/11/18 18:00 Resp 37 H 12/11/18 18:00 BP 137/80 12/11/18 18:00 Pulse Ox 96 12/11/18 18:00 Intake & Output 12/10/18 12/11/18 12/11/18 18:59 06:59 18:59 Intake Total 650 550 600 Output Total 569 422 6071 Balance 354 215 -475 Weight 55.7 kg Intake: IV 650 550 600 Sodium Chloride 0.9% 1, 650 550 600 000 ml @ 50 mls/hr IV . Q20H [facility] Rx#:[id number] Output: Urine [phone] Other: Voiding Method Indwelling Catheter Indwelling Catheter Indwelling Catheter # Voids 2 - Exam - Constitutional General appearance: average body habitus, cooperative, disheveled, mild distress - EENT Eyes: EOMI, PERRLA, normal appearance ENT: normal oropharynx Ears: bilateral: normal - Neck Neck: lymphadenopathy Carotids: bilateral: upstroke normal Thyroid: bilateral: normal size - Respiratory Respiratory: bilateral: diminished, prolonged expiration, negative: CTA, dullness, rales, rhonchi, wheezing - Cardiovascular Rhythm: regular Heart sounds: normal: S1, S2 - Gastrointestinal General gastrointestinal: normal bowel sounds, soft - Neurologic Neurologic: CNII-XII intact - Musculoskeletal Musculoskeletal: generalized weakness, strength equal bilaterally - Psychiatric Psychiatric: A&O x's 2, appropriate affect, intact judgment & insight somewhat slow to respond but waking up progressively Right leg is the externally rotated - Labs CBC & Chem 7: 12/11/18 04:33 12/11/18 04:33 Labs: Abnormal Lab Results - Last 24 Hours (Table) 12/10/18 12/11/18 12/11/18 Range/Units 23:50 04:33 04:33 WBC 14.2 H (3.8-10.6) k/uL Neutrophils # 12.5 H (1.3-7.7) k/uL BUN 42 H (7-17) mg/dL Glucose 129 H (74-99) mg/dL POC Glucose (mg/dL) 141 H (75-99) mg/dL AST 67 H (14-36) U/L Alkaline Phosphatase 190 H (38-126) U/L Total Protein 6.2 L (6.3-8.2) g/dL 12/11/18 12/11/18 Range/Units 05:48 18:03 WBC (3.8-10.6) k/uL Neutrophils # (1.3-7.7) k/uL BUN (7-17) mg/dL Glucose (74-99) mg/dL POC Glucose (mg/dL) 125 H 123 H (75-99) mg/dL AST (14-36) U/L Alkaline Phosphatase (38-126) U/L Total Protein (6.3-8.2) g/dL Microbiology - Last 24 Hours (Table) 12/10/18 12:44 Urine Culture - Final Urine,Catheterized 12/10/18 00:56 Blood Culture - Preliminary Blood No Growth after 24 hours Assessment and Plan Assessment: Altered mental status Acute hypoxic and hypercapnic respiratory failure Developing pneumonia and right midlung field Right hip fracture Status post fall Severe COPD oxygen dependent and nebulizer dependent Chronic hypoxic respiratory failure on 4 L oxygen Hypertension hypertensive cardiovascular disease Plan: Continue broad-spectrum antibiotics IV steroids Continue supplemental oxygen Breathing treatment Deep breathing exercise incentive spirometry DVT prophylaxis Peptic ulcer disease prophylaxis Orthopedic service surgery is on hold Time with Patient: Greater than 30
[2018-12-11] MEDS: MONTELUKAST 10 MG TAB PO SCH (21:04)
[2018-12-11] MEDS: ARIPiprazole 5 MG TAB PO SCH (21:04)
[2018-12-11] MEDS: LEVOFLOXACIN 500MG-D5W PMX 500 MG in DEXTROSE/WATER 1 100ML.BAG IVPB SCH (21:04)
[2018-12-12] MEDS: KETOROLAC 30 MG/ML 1 ML VIAL IVP SCH ×4 (00:11→17:17)
[2018-12-12] MEDS: clonazePAM 1 MG TAB PO SCH ×3 (00:11→17:15)
[2018-12-12] MEDS: HEPARIN SODIUM,PORCINE 5,000 UNIT/ML 1 ML VIAL SQ SCH ×3 (00:12→17:17)
[2018-12-12] MEDS: methylPREDNISolone SOD SUCCI 40 MG/ML 1 ML VIAL IV SCH ×3 (00:12→21:47)
[2018-12-12] MEDS: SODIUM CHLORIDE 0.9% 1,000 ML IV SCH (00:13)
[2018-12-12 05:15] LABS: ALT 29 U/L (9-52); AST 30 U/L (14-36); African American GFR (CKD) >90 (>60 ml/min/1.73 sqM); Albumin 3.3 g/dL (3.5-5.0); Alkaline Phosphatase 136 U/L (38-126); Anion Gap 8 mmol/L; Blood Urea Nitrogen 42 mg/dL (7-17); Carbon Dioxide 28 mmol/L (22-30); Chloride 107 mmol/L (98-107); Glucose 138 mg/dL (74-99); Potassium 3.9 mmol/L (3.5-5.1); Sodium 143 mmol/L (137-145); Total Bilirubin 0.5 mg/dL (0.2-1.3); Total Protein 5.8 g/dL (6.3-8.2)
[2018-12-12 06:17] LABS: Basophils % (A) 0 %; Eosinophils % (A) 0 %; HCT 32.4 % (34.0-46.0); HGB 10.6 gm/dL (11.4-16.0); Lymphocytes # (A) 0.5 k/uL (1.0-4.8); Lymphocytes % (A) 6 %; MCH 29.3 pg (25.0-35.0); MCHC 32.8 g/dL (31.0-37.0); MCV 89.3 fL (80.0-100.0); Mean Platelet Volume 7.7; Monocytes # (A) 0.4 k/uL (0-1.0); Monocytes % (A) 5 %; Neutrophils # (A) 7.4 k/uL (1.3-7.7); Neutrophils % (A) 88 %; Platelet Count 210 k/uL (150-450); RBC 3.63 m/uL (3.80-5.40); RDW 15.7 % (11.5-15.5); WBC 8.4 k/uL (3.8-10.6)
[2018-12-12] MEDS: ALBUTEROL NEBULIZED 2.5 MG/3 ML INHALATION SCH ×4 (07:59→20:14)
--- NOTE | 2018-12-12 08:01 | XR ---
EXAMINATION TYPE: XR chest 1V portable DATE OF EXAM: 12/12/2018 COMPARISON: 12/11/2018 INDICATION: Shortness of breath TECHNIQUE: Single frontal view of the chest is obtained. FINDINGS: The heart size is normal. The pulmonary vasculature is normal. Mild right lower lobe infiltrate may be present. This is slightly increased from comparison. IMPRESSION: 1. Developing right lower lobe infiltrate correlate for atelectasis and pneumonia.
[2018-12-12] MEDS: BUDESONIDE 0.5 MG/2 ML NEBU INHALATION SCH ×2 (08:28→20:15)
[2018-12-12] MEDS: FAMOTIDINE 20 MG/2 ML VIAL IV SCH (08:33)
[2018-12-12] MEDS: FUROSEMIDE 10 MG/ML 2 ML VIAL IV SCH (08:34)
[2018-12-12] MEDS: ESCITALOPRAM 20 MG TAB PO SCH (12:27)
[2018-12-12] MEDS: ATENOLOL 12.5 MG TAB PO SCH (12:27)
[2018-12-12] MEDS: LORATADINE 10 MG TAB PO SCH (12:28)
--- NOTE | 2018-12-12 17:45 | P.PN ---
Subjective Progress Note Date: 12/12/18 Principal diagnosis: Right hip fracture Status post fall Severe COPD oxygen dependent and nebulizer dependent Chronic hypoxic respiratory failure on 4 L oxygen Hypertension hypertensive cardiovascular disease 12/12/2018, patient seen and evaluated examined during the rounds labs reviewed medications reviewed, patient remains on 4 L oxygen cough congestion is improved she did use the BiPAP machine last night she is taking a daytime nap refuse the BiPAP for the map, she has some confusion her IV steroids are being reduced from 3 times a day to twice a day with continuation of bronchodilator therapy, chest x-ray from today has been reviewed continue show a right midlung field infiltrate 12/11/2018, patient seen and evaluated examined in the ICU more awake now oriented 3 Mr. short of breath tachypneic but severity has improved patient remains on broad-spectrum antibiotics IV steroids and breathing treatment she did use BiPAP almost 4 4-1/2 hour to 5 hour, which seems to be helping chest x- ray findings reviewed remains stable reviewed neurological finding 12/10/2018, patient has been seen eval reexamined today the ICU and Developed progressive respiratory failure with hypercapnia thought to be related to narcotics discussed with patient in length about using the BiPAP machine labs reviewed medications reviewed ABG reviewed, patient considered to be a poor surgical candidate, CT chest finding reviewed and noted critical care spent 35 minutes This is a 63-year-old female well-known to me for long-standing history of COPD which is severe in nature patient is on 4 L nasal cannula oxygen also on bronchodilator therapy she has stopped smoking now for the last several weeks, she has been doing fairly well except that she fell down and developed right hip fracture for which she was brought into emergency department, orthopedic surgery has been consulted, however patient likely will require surgery for the right hip fracture Objective - Vital Signs Vital signs: Vital Signs Temp 99.6 F 12/12/18 12:00 Pulse 91 12/12/18 15:59 Resp 30 H 12/12/18 15:00 BP 138/94 12/12/18 15:00 Pulse Ox 96 12/12/18 15:00 Intake & Output 12/11/18 12/12/18 12/12/18 18:59 06:59 18:59 Intake Total 600 700 450 Output Total 1075 365 830 Balance -475 335 -380 Weight 55.4 kg Intake: IV 600 700 450 Levofloxacin 500Mg-D5w 100 Pmx 500 mg In Dextrose/ Water 1 100ml.bag @ 100 mls/hr IVPB Q24H [facility] Rx#: [id number] Sodium Chloride 0.9% 1, 600 600 450 000 ml @ 50 mls/hr IV . Q20H [facility] Rx#:[id number] Output: Urine 1075 365 830 Other: Voiding Method Indwelling Catheter Indwelling Catheter Indwelling Catheter - Exam - Constitutional General appearance: average body habitus, cooperative, disheveled, mild distress - EENT Eyes: EOMI, PERRLA, normal appearance ENT: normal oropharynx Ears: bilateral: normal - Neck Neck: lymphadenopathy Carotids: bilateral: upstroke normal Thyroid: bilateral: normal size - Respiratory Respiratory: bilateral: diminished, prolonged expiration, negative: CTA, dulln ess, rales, rhonchi, wheezing - Cardiovascular Rhythm: regular Heart sounds: normal: S1, S2 - Gastrointestinal General gastrointestinal: normal bowel sounds, soft - Neurologic Neurologic: CNII-XII intact - Musculoskeletal Musculoskeletal: generalized weakness, strength equal bilaterally - Psychiatric Psychiatric: A&O x's 2, appropriate affect, intact judgment & insight somewhat slow to respond but waking up progressively Right leg is the externally rotated - Labs CBC & Chem 7: 12/12/18 04:23 12/12/18 04:27 Labs: Abnormal Lab Results - Last 24 Hours (Table) 12/11/18 12/12/18 12/12/18 Range/Units 18:03 04:23 04:27 RBC 3.63 L (3.80-5.40) m/uL Hgb 10.6 L (11.4-16.0) gm/dL Hct 32.4 L (34.0-46.0) % RDW 15.7 H (11.5-15.5) % Lymphocytes # 0.5 L (1.0-4.8) k/uL BUN 42 H (7-17) mg/dL Glucose 138 H (74-99) mg/dL POC Glucose (mg/dL) 123 H (75-99) mg/dL Alkaline Phosphatase 136 H (38-126) U/L Total Protein 5.8 L (6.3-8.2) g/dL Albumin 3.3 L (3.5-5.0) g/dL Microbiology - Last 24 Hours (Table) 12/10/18 00:56 Blood Culture - Preliminary Blood No Growth after 48 hours 12/10/18 12:44 Urine Culture - Final Urine,Catheterized Assessment and Plan Assessment: Altered mental status Acute hypoxic and hypercapnic respiratory failure Right midlung field pneumonia Right hip fracture Status post fall Severe COPD oxygen dependent and nebulizer dependent Chronic hypoxic respiratory failure on 4 L oxygen Hypertension hypertensive cardiovascular disease Plan: Continue broad-spectrum antibiotics IV steroids, we'll continue tapering down Continue supplemental oxygen Breathing treatment Deep breathing exercise incentive spirometry DVT prophylaxis Peptic ulcer disease prophylaxis Orthopedic service surgery is on hold Time with Patient: Greater than 30
[2018-12-12] MEDS: FAMOTIDINE 20 MG TAB PO SCH ×2 (21:29→21:49)
[2018-12-12] MEDS: MONTELUKAST 10 MG TAB PO SCH ×2 (21:29→21:48)
[2018-12-12] MEDS: ARIPiprazole 5 MG TAB PO SCH (21:46)
[2018-12-12] MEDS: LEVOFLOXACIN 500MG-D5W PMX 500 MG in DEXTROSE/WATER 1 100ML.BAG IVPB SCH (22:48)
[2018-12-13 00:16] LABS: Glucose,Whole Blood 185 mg/dL (75-99)
[2018-12-13] MEDS: KETOROLAC 30 MG/ML 1 ML VIAL IVP SCH ×3 (00:21→11:27)
[2018-12-13] MEDS: HEPARIN SODIUM,PORCINE 5,000 UNIT/ML 1 ML VIAL SQ SCH ×3 (00:21→16:31)
[2018-12-13] MEDS: clonazePAM 1 MG TAB PO PRN ×3 (04:21→18:06)
[2018-12-13] MEDS: SODIUM CHLORIDE 0.9% 1,000 ML IV SCH (06:06)
[2018-12-13 06:21] LABS: Glucose,Whole Blood 152 mg/dL (75-99)
[2018-12-13] MEDS: ALBUTEROL NEBULIZED 2.5 MG/3 ML INHALATION SCH ×4 (07:44→19:34)
[2018-12-13] MEDS: BUDESONIDE 0.5 MG/2 ML NEBU INHALATION SCH ×2 (07:44→19:34)
[2018-12-13] MEDS: ATENOLOL 12.5 MG TAB PO SCH (08:45)
[2018-12-13] MEDS: FUROSEMIDE 10 MG/ML 2 ML VIAL IV SCH (08:45)
[2018-12-13] MEDS: FAMOTIDINE 20 MG TAB PO SCH (08:45)
[2018-12-13] MEDS: ESCITALOPRAM 20 MG TAB PO SCH (08:45)
[2018-12-13] MEDS: LORATADINE 10 MG TAB PO SCH (08:46)
[2018-12-13] MEDS: methylPREDNISolone SOD SUCCI 40 MG/ML 1 ML VIAL IV SCH (08:46)
--- NOTE | 2018-12-13 11:29 | ECHOF ---
Referral Reason:lv fx MEASUREMENTS -------- HEIGHT: 157.5 cm WEIGHT: 55.3 kg BP: RVIDd: 1.5 cm (< 3.3) IVSd: 1.4 cm (0.6 - 1.1) LVIDd: 2.7 cm (3.9 - 5.3) LVPWd: 1.4 cm (0.6 - 1.1) IVSs: 1.5 cm LVIDs: 2.0 cm LVPWs: 1.5 cm LAESV Index (A-L): 10.97 ml/m Ao Diam: 2.5 cm (2.0 - 3.7) AV Cusp: 1.5 cm (1.5 - 2.6) LA Diam: 2.7 cm (2.7 - 3.8) MV EXCURSION: 9.718 mm (> 18.000) MV EF SLOPE: 50 mm/s (70 - 150) EPSS: 0.7 cm MV E Ramesh: 0.78 m/s MV DecT: 115 ms MV A Ramesh: 0.96 m/s MV E/A Ratio: 0.81 RAP: 5.00 mmHg RVSP: 11.07 mmHg FINDINGS -------- Sinus rhythm. This was a technically adequate study. The left ventricular size is normal. There is mild concentric left ventricular hypertrophy. Overa ll left ventricular systolic function is normal with, an EF between 55 - 60 %. Normal LAP Grade 1 D iastolic Dysfunction The right ventricle is normal in size. Normal LA size by volume 22+/-6 ml/m2. The right atrial size is normal. The aortic valve is trileaflet, and appears structurally normal. No aortic stenosis or regurgitation. The mitral valve is normal. Mild mitral regurgitation is present. The tricuspid valve appears structurally normal. Mild tricuspid regurgitation present. Right vent ricular systolic pressure is normal at < 35 mmHg. The pulmonic valve was not well visualized. There is no pulmonic regurgitation present. The aortic root size is normal. Normal inferior vena cava with normal inspiratory collapse consistent with estimated right atrial pre ssure of 5 mmHg. Echo free space may represent effusion or a pericardial fat pad. CONCLUSIONS -------- 1. Sinus rhythm. 2. This was a technically adequate study. 3. The left ventricular size is normal. 4. There is mild concentric left ventricular hypertrophy. 5. Overall left ventricular systolic function is normal with, an EF between 55 - 60 %. 6. Normal LAP Grade 1 Diastolic Dysfunction 7. Normal LA size by volume 22+/-6 ml/m2. 8. The aortic valve is trileaflet, and appears structurally normal. No aortic stenosis or regurgitati on. 9. The mitral valve is normal. 10. Mild mitral regurgitation is present. 11. The tricuspid valve appears structurally normal. 12. Mild tricuspid regurgitation present. 13. Right ventricular systolic pressure is normal at < 35 mmHg. 14. There is no pulmonic regurgitation present. 15. The aortic root size is normal. 16. Normal inferior vena cava with normal inspiratory collapse consistent with estimated right atrial pressure of 5 mmHg. 17. Echo free space may represent effusion or a pericardial fat pad. THERMAL INTELLIGENCE ANALYST: Geno Tan RDCS
--- NOTE | 2018-12-13 14:48 | P.DS ---
Providers Date of admission: 12/09/18 10:27 Expected date of discharge: 12/13/18 Attending physician: Chris Aguilar Consults: 12/09/18 10:28 Consult Physician Urgent Consulting Provider: Harley Scott Consult Reason/Comments: Right hip fracture Do you want consulting provider notified?: Already Contacted 12/09/18 10:54 Consult Physician Routine Consulting Provider: Dayne Vann Consult Reason/Comments: Chronic lung disease, right hip fracture Do you want consulting provider notified?: Yes 12/10/18 11:18 Consult Physician Urgent Consulting Provider: Silvino Raymundo Consult Reason/Comments: profound weakness. Do you want consulting provider notified?: Already Contacted Primary care physician: [facility] Course: Final Diagnoses: Altered mental status,suspected to be narcotic induced from meds received in the emergency room. Acute on chronic hypoxic and hypercapnic respiratory failure Right midlung field pneumonia. Right hip fracture Status post fall Severe COPD oxygen dependent and nebulizer dependent Chronic hypoxic respiratory failure on 4 L oxygen Hypertension hypertensive cardiovascular disease this is a 63-year-old female admitted with right subcapital hip fracture, concussion and multiple other medical issues. No surgery advised secondary to patient's severe COPD,patient is high risk for requiring a ventilator, patient and significant other does not want to be on a ventilator.evaluated by orthopedic surgery, pulmonary and neurology.cervical spine MRI reported multilevel posterior mild disc bulging, no cord edema, no spinal stenosis.Echo reporting preserved LV function, EF 55-60%.Significant clinical improvement. Cleared by all consults for discharge.patient is being discharged to [facility]. Please note activity restrictions as per orthopedic surgery.oxygen/BiPAP settings as per pulmonary. PHYSICAL EXAM: GENERAL: sitting up in bed, no acute distress, alert and oriented 2 HEENT: Conjunctivae normal. eyes normal. NECK: No JVD. No thyroid enlargement. No LNs CARDIOVASCULAR: S1, S2 regular.. No murmur RESPIRATION: Breath sounds diminished in the bases. occasional scattered rhonchi, crackles.mild expiratory wheeze ABDOMEN: Soft, nontender . No guarding. no masses palpable. Bowel sounds heard. LEGS: No edema. no swelling PSYCHIATRY: Alert and oriented X2, mood and affect normal. NERVOUS SYSTEM: Cranial N 2-12 grossly normal. Diffuse weakness, No focal deficits. The impression and plan of care has been dictated as directed. : I performed a history and examination of this patient, discussed the same with the dictator. I agree with the dictator's note ,documented as a scribe. Any additional findings or plans will be noted. Time taken: 35 minutes Patient Condition at Discharge: Stable Plan - Discharge Summary Discharge Rx Participant: No New Discharge Prescriptions: New Levofloxacin [Levaquin] 500 mg PO HS 5 Days #5 tab predniSONE 10 mg PO DIRECTED #30 tab Albuterol Nebulized [Ventolin Nebulized] 2.5 mg INHALATION RT-QID nebu Albuterol Nebulized [Ventolin Nebulized] 2.5 mg INHALATION Q4H PRN nebu PRN Reason: Shortness Of Breath Or Wheezing Continue Fluticasone/Salmeterol [Advair 250-50 Diskus] 1 puff INHALATION RT-BID Fluticasone Propionate [Flonase] 1 spray EA NOSTRIL DAILY PRN PRN Reason: Allergy Symptoms Escitalopram [Lexapro] 20 mg PO DAILY Ranitidine HCl [Zantac] 150 mg PO W/SUPPER Cetirizine HCl [Zyrtec] 10 mg PO QAM Atenolol [Tenormin] 12.5 mg PO QAM Umeclidinium Center Sandwich [Incruse Ellipta] 1 puff INHALATION RT-HS Montelukast [Singulair] 10 mg PO HS diphenhydrAMINE HCL [Benadryl] 25 mg PO HS PRN PRN Reason: Itching ARIPiprazole [Abilify] 5 mg PO HS clonazePAM [KlonoPIN] 1 mg PO TID #9 tab HYDROcodone/APAP 7.5-325MG [[place] 7.5-325] 1 tab PO TID PRN #9 tab PRN Reason: Pain Discontinued Albuterol Sulfate [Proair Hfa] 2 puff INHALATION RT-Q6H PRN PRN Reason: Shortness Of Breath Albuterol Nebulized [Ventolin Nebulized] 2.5 mg INHALATION RT-QID PRN PRN Reason: sob Discharge Medication List Escitalopram [Lexapro] 20 mg PO DAILY 09/13/13 [History] Fluticasone Propionate [Flonase] 1 spray EA NOSTRIL DAILY PRN 09/13/13 [History] Fluticasone/Salmeterol [Advair 250-50 Diskus] 1 puff INHALATION RT-BID 09/13/13 [History] Ranitidine HCl [Zantac] 150 mg PO W/SUPPER 04/21/15 [History] Cetirizine HCl [Zyrtec] 10 mg PO QAM 05/11/16 [History] Atenolol [Tenormin] 12.5 mg PO QAM 07/12/16 [History] Montelukast [Singulair] 10 mg PO HS 12/10/16 [History] Umeclidinium Center Sandwich [Incruse Ellipta] 1 puff INHALATION RT-HS 12/10/16 [History] ARIPiprazole [Abilify] 5 mg PO HS 04/01/18 [History] diphenhydrAMINE HCL [Benadryl] 25 mg PO HS PRN 04/01/18 [History] Albuterol Nebulized [Ventolin Nebulized] 2.5 mg INHALATION Q4H PRN nebu 12/13/18 [Rx] Albuterol Nebulized [Ventolin Nebulized] 2.5 mg INHALATION RT-QID nebu 12/13/18 [Rx] HYDROcodone/APAP 7.5-325MG [[place] 7.5-325] 1 tab PO TID PRN #9 tab 12/13/18 [Rx] Levofloxacin [Levaquin] 500 mg PO HS 5 Days #5 tab 12/13/18 [Rx] clonazePAM [KlonoPIN] 1 mg PO TID #9 tab 12/13/18 [Rx] predniSONE 10 mg PO DIRECTED #30 tab 12/13/18 [Rx] Follow up Appointment(s)/Referral(s): Chris Aguilar MD [Primary Care Provider] - 1-2 days Dayne Vann MD [STAFF PHYSICIAN] - 1 Week Harley Scott DO [Doctor of Osteopathic Medicine] - 2 Weeks Activity/Diet/Wound Care/Special Instructions: Medi PH DIet:strict aspiration precautions, supervision 1:1 dysphagia level III chopped activity restrictions as per orthopedics CBC, BMP in 3 days Discharge Disposition: TRANSFER TO SNF/ECF
--- NOTE | 2018-12-13 15:00 | P.PN ---
Subjective Progress Note Date: 12/12/18 this is a 63-year-old female admitted with right subcapital hip fracture, concussion and multiple other medical issues. No surgery advised secondary to patient's severe COPD,patient is high risk for requiring a ventilator, patient and significant other does not want to be on a ventilator.evaluated by orth opedic surgery, pulmonary and neurology.cervical spine MRI reported multilevel posterior mild disc bulging, no cord edema, no spinal stenosis.Echo completed, results pending.sensorium significantly improved. Vital signs stable. Objective - Vital Signs Vital signs: Vital Signs Temp 99.6 F 12/12/18 12:00 Pulse 91 12/12/18 15:59 Resp 30 H 12/12/18 15:00 BP 138/94 12/12/18 15:00 Pulse Ox 96 12/12/18 15:00 Intake & Output 12/11/18 12/12/18 12/12/18 18:59 06:59 18:59 Intake Total 600 700 450 Output Total 1075 365 830 Balance -475 335 -380 Weight 55.4 kg Intake: IV 600 700 450 Levofloxacin 500Mg-D5w 100 Pmx 500 mg In Dextrose/ Water 1 100ml.bag @ 100 mls/hr IVPB Q24H [facility] Rx#: [id number] Sodium Chloride 0.9% 1, 600 600 450 000 ml @ 50 mls/hr IV . Q20H [facility] Rx#:[id number] Output: Urine 1075 365 830 Other: Voiding Method Indwelling Catheter Indwelling Catheter Indwelling Catheter - Exam GENERAL: sitting up in bed, no acute distress, alert and oriented 2. HEENT: Conjunctivae normal. eyes normal. NECK: No JVD. No thyroid enlargement. No LNs CARDIOVASCULAR: S1, S2 regular.. No murmur RESPIRATION: Breath sounds diminished in the bases. occasional scattered rhonc hi, crackles.mild expiratory wheeze ABDOMEN: Soft, nontender . No guarding. no masses palpable. Bowel sounds heard. LEGS: No edema. no swelling PSYCHIATRY: Alert and oriented X2, mood and affect normal. NERVOUS SYSTEM: Cranial N 2-12 grossly normal. Diffuse weakness, No focal deficits. - Labs CBC & Chem 7: 12/12/18 04:23 12/12/18 04:27 Labs: Abnormal Lab Results - Last 24 Hours (Table) 12/11/18 12/12/18 12/12/18 Range/Units 18:03 04:23 04:27 RBC 3.63 L (3.80-5.40) m/uL Hgb 10.6 L (11.4-16.0) gm/dL Hct 32.4 L (34.0-46.0) % RDW 15.7 H (11.5-15.5) % Lymphocytes # 0.5 L (1.0-4.8) k/uL BUN 42 H (7-17) mg/dL Glucose 138 H (74-99) mg/dL POC Glucose (mg/dL) 123 H (75-99) mg/dL Alkaline Phosphatase 136 H (38-126) U/L Total Protein 5.8 L (6.3-8.2) g/dL Albumin 3.3 L (3.5-5.0) g/dL Microbiology - Last 24 Hours (Table) 12/10/18 00:56 Blood Culture - Preliminary Blood No Growth after 48 hours 12/10/18 12:44 Urine Culture - Final Urine,Catheterized Assessment and Plan Assessment: Altered mental status,acute metabolic, toxic encephalopathy suspected to be narcotic induced from meds received in the emergency room. Acute on chronic hypoxic and hypercapnic respiratory failure Right midlung field pneumonia. Right hip fracture Status post fall Severe COPD oxygen dependent and nebulizer dependent Chronic hypoxic respiratory failure on 4 L oxygen Hypertension hypertensive cardiovascular disease plan: Continue on current medication regime ,monitoring and symmetric treatment. Significant clinical improvement, doubt overflow patient. Echo completed, report pending. PT/OT. Discharge planning in progress to subacute rehab tomorrow. Prognosis guarded given multiple complex medical issues. Further recommendations to follow. The impression and plan of care has been dictated as directed. : I performed a history and examination of this patient, discussed the same with the dictator. I agree with the dictator's note ,documented as a scribe. Any additional findings or plans will be noted.
--- NOTE | 2018-12-13 15:19 | P.PN ---
Subjective Progress Note Date: 12/13/18 Principal diagnosis: Right hip fracture Status post fall Severe COPD oxygen dependent and nebulizer dependent Chronic hypoxic respiratory failure on 4 L oxygen Hypertension hypertensive cardiovascular disease 12/13/2018, patient seen eval examined during the rounds she just finished with hemodialysis tired now her breathing pattern stable she has some cough with the some scanty sputum mostly nonproductive the phlegm is most of it is alive a patient would like to go home but want to wait 1 or 2 more days 12/12/2018, patient seen and evaluated examined during the rounds labs reviewed medications reviewed, patient remains on 4 L oxygen cough congestion is improved she did use the BiPAP machine last night she is taking a daytime nap refuse the BiPAP for the map, she has some confusion her IV steroids are being reduced from 3 times a day to twice a day with continuation of bronchodilator therapy, chest x-ray from today has been reviewed continue show a right midlung field infiltrate 12/11/2018, patient seen and evaluated examined in the ICU more awake now oriented 3 Mr. short of breath tachypneic but severity has improved patient remains on broad-spectrum antibiotics IV steroids and breathing treatment she did use BiPAP almost 4 4-1/2 hour to 5 hour, which seems to be helping chest x- ray findings reviewed remains stable reviewed neurological finding 12/10/2018, patient has been seen eval reexamined today the ICU and Developed progressive respiratory failure with hypercapnia thought to be related to narcotics discussed with patient in length about using the BiPAP machine labs reviewed medications reviewed ABG reviewed, patient considered to be a poor surgical candidate, CT chest finding reviewed and noted critical care spent 35 minutes This is a 63-year-old female well-known to me for long-standing history of COPD which is severe in nature patient is on 4 L nasal cannula oxygen also on bronchodilator therapy she has stopped smoking now for the last several weeks, she has been doing fairly well except that she fell down and developed right hip fracture for which she was brought into emergency department, orthopedic surgery has been consulted, however patient likely will require surgery for the right hip fracture Objective - Vital Signs Vital signs: Vital Signs Temp 98.5 F 12/13/18 07:00 Pulse 78 12/13/18 11:35 Resp 20 12/13/18 07:00 BP 112/61 12/13/18 07:00 Pulse Ox 98 12/13/18 07:00 Intake & Output 12/12/18 12/13/18 12/13/18 18:59 06:59 18:59 Intake Total 450 850 400 Output Total 699 635 3308 Balance -380 525 -850 Intake: IV 450 850 400 Levofloxacin 500Mg-D5w 100 Pmx 500 mg In Dextrose/ Water 1 100ml.bag @ 100 mls/hr IVPB Q24H [facility] Rx#: [id number] Sodium Chloride 0.9% 1, 450 750 400 000 ml @ 50 mls/hr IV . Q20H [facility] Rx#:[id number] Output: Urine 416 158 [id number] Other: Voiding Method Indwelling Catheter Indwelling Catheter Indwelling Catheter - Exam - Constitutional General appearance: average body habitus, cooperative, disheveled, mild distress - EENT Eyes: EOMI, PERRLA, normal appearance ENT: normal oropharynx Ears: bilateral: normal - Neck Neck: lymphadenopathy Carotids: bilateral: upstroke normal Thyroid: bilateral: normal size - Respiratory Respiratory: bilateral: diminished, prolonged expiration, negative: CTA, dullness, rales, rhonchi, wheezing - Cardiovascular Rhythm: regular Heart sounds: normal: S1, S2 - Gastrointestinal General gastrointestinal: normal bowel sounds, soft - Neurologic Neurologic: CNII-XII intact - Musculoskeletal Musculoskeletal: generalized weakness, strength equal bilaterally - Psychiatric Psychiatric: A&O x's 2, appropriate affect, intact judgment & insight somewhat slow to respond but waking up progressively Right leg is the externally rotated - Labs CBC & Chem 7: 12/12/18 04:23 12/12/18 04:27 Labs: Abnormal Lab Results - Last 24 Hours (Table) 12/13/18 12/13/18 Range/Units 00:04 06:10 POC Glucose (mg/dL) 185 H 152 H (75-99) mg/dL Microbiology - Last 24 Hours (Table) 12/10/18 00:56 Blood Culture - Preliminary Blood No Growth after 72 hours Assessment and Plan Assessment: Altered mental status, significantly improved Acute hypoxic and hypercapnic respiratory failure Right midlung field pneumonia Right hip fracture Status post fall Severe COPD oxygen dependent and nebulizer dependent Chronic hypoxic respiratory failure on 4 L oxygen Hypertension hypertensive cardiovascular disease Plan: Continue broad-spectrum antibiotics IV steroids, we'll continue tapering down Continue supplemental oxygen Breathing treatment Deep breathing exercise incentive spirometry DVT prophylaxis Peptic ulcer disease prophylaxis Orthopedic service surgery is on hold Time with Patient: Greater than 30
[2018-12-13 18:17] VITALS: BP 143/78; RESP 17; TEMP 98.1
[2018-12-13 19:43] VITALS: PULSE 86
[2018-12-13] MEDS ORDERED: LEVOFLOXACIN 500 MG TAB PO SCH (21:00)
== END 2018-12-13 19:30 | DRG 535 ==
LOC: EC 08:09 → 4MS4W 10:27 → 4SSUR 13:11 → 2SICU 20:56
PROVIDERS: ADMIT Family Medicine; ATTEND Family Medicine
DX: S72.011A Unspecified intracapsular fracture of right femur, initial encounter for closed fracture (principal); G92 Toxic encephalopathy; J18.1 Lobar pneumonia, unspecified organism; J96.21 Acute and chronic respiratory failure with hypoxia; J96.22 Acute and chronic respiratory failure with hypercapnia; S06.0X9A Concussion with loss of consciousness of unspecified duration, initial encounter; J43.9 Emphysema, unspecified; I11.9 Hypertensive heart disease without heart failure; F41.0 Panic disorder [episodic paroxysmal anxiety]; K21.9 Gastro-esophageal reflux disease without esophagitis; M06.9 Rheumatoid arthritis, unspecified; M19.90 Unspecified osteoarthritis, unspecified site; F32.9 Major depressive disorder, single episode, unspecified; M72.2 Plantar fascial fibromatosis; M25.531 Pain in right wrist; W18.39XA Other fall on same level, initial encounter; Y92.009 Unspecified place in unspecified non-institutional (private) residence as the place of occurrence of the external cause; T40.605A Adverse effect of unspecified narcotics, initial encounter; Z66 Do not resuscitate; Z79.899 Other long term (current) drug therapy; Z88.5 Allergy status to narcotic agent; Z88.0 Allergy status to penicillin; Z91.041 Radiographic dye allergy status; Z99.81 Dependence on supplemental oxygen; Z87.891 Personal history of nicotine dependence; Z91.048 Other nonmedicinal substance allergy status; Z87.01 Personal history of pneumonia (recurrent); Z98.51 Tubal ligation status; Z80.52 Family history of malignant neoplasm of bladder; Z80.6 Family history of leukemia; Z82.49 Family history of ischemic heart disease and other diseases of the circulatory system; Z84.1 Family history of disorders of kidney and ureter
CPT/HCPCS: 36600; 70450; 71045; 71250; 72141; 73502; 80053; 82140; 82805; 83605; 83735; 84100; 85025; 87040; 87086; 93306; 94640; 94660; 96374; 96375; 99285